=== PATIENT | female | born 1945 | race American Indian/Alaskan Native ===

== ENCOUNTER 2018-03-12 11:15 | Day surgery (SDC) | payer MEDICARE ==
[~2018-03-12 11:15] MED LIST: ANCEF/STERILE WATER 2 GM/20 ML 2 GM/20 ML SYRINGE IV NR; NACL 0.9% 1000 ML 1,000 ML IV SCH
[2018-03-12 13:09] LABS: Basophils % (Auto) 0.6 % (0.0-1.8); Eosinophils % (Auto) 0.1 % (0.0-4.3); Hematocrit 36.4 % (30.3-42.9); Hemoglobin 11.7 gm/dl (10.1-14.3); Lymphocytes # (Auto) 0.9 K/mm3 (1.2-5.4); Lymphocytes % (Auto) 11.6 % (13.4-35.0); Mean Corpuscular HGB Conc 32 % (30-34); Mean Corpuscular Hemoglobin 28 pg (28-32); Mean Corpuscular Volume 87 fl (79-97); Monocytes # (Auto) 0.7 K/mm3 (0.0-0.8); Monocytes % (Auto) 9.2 % (0.0-7.3); Platelet Count 244 K/mm3 (140-440); Red Blood Count 4.18 M/mm3 (3.65-5.03)
[2018-03-12 13:15] LABS: Red Cell Distribution Width 20.9 % (13.2-15.2)
[2018-03-12 13:28] LABS: Calcium 9.8 mg/dL (8.4-10.2)
[2018-03-12] MEDS ORDERED: ZOFRAN ONE (13:40)
[2018-03-12] MEDS ORDERED: XYLOCAINE MPF 2% ONE (13:41)
[2018-03-12] MEDS ORDERED: SUBLIMAZE ONE (13:41)
[2018-03-12] MEDS ORDERED: DIPRIVAN 10 MG/ML IV ONE (13:42)
[2018-03-12] MEDS ORDERED: DILAUDID IV PRN (15:26)
[2018-03-12] MEDS ORDERED: ZOFRAN IV PRN (15:26)
--- NOTE | 2018-03-12 15:26 | Anesthesia Consultation ---
Anesthesia Consult and Med Hx - Airway Anesthetic Teeth Evaluation: Good ROM Head & Neck: Adequate Mental/Hyoid Distance: Adequate Mallampati Class: Class II Intubation Access Assessment: Probably Good - Pulmonary Exam CTA: Yes - Cardiac Exam Cardiac Exam: No Murmur (II/IV LISSETTE, denies CP, SOB, orthopnea or PND) - Pre-Operative Health Status ASA Pre-Surgery Classification: ASA3 Proposed Anesthetic Plan: General (LMA OK) - Pulmonary Hx Smoking: No Hx Asthma: No COPD: No Hx Sleep Apnea: Yes (DX SLEEP APNEA , NO CPAP USE.) - Cardiovascular System Hx Hypertension: Yes (X 20 YRS H/o CHF) Hx Peripheral Vascular Disease: Yes (LEGS- C/O CRAMPS IN LEGS) - Central Nervous System Hx Seizures: No 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
--- NOTE | 2018-03-12 15:26 | Anesthesia Day of Surgery ---
Anesthesia Day of Surgery - Day of Surgery Patient Examined: Yes Patient H&P Reviewed: Yes Patient is NPO: Yes
[2018-03-12] MEDS ORDERED: MARCAINE 0.5% 30 ML INFILTRATI ONE (16:18)
[2018-03-12] MEDS ORDERED: HEPARIN 10,000 UNITS/10 ML ONE (16:19)
[2018-03-12] MEDS ORDERED: NACL 0.9% 500 ML 500 ML ONE ×2 (16:19→17:24)
[2018-03-12] MEDS ORDERED: NACL ONE (16:37)
[2018-03-12] MEDS ORDERED: RIFADIN ONE (16:37)
[2018-03-12] MEDS ORDERED: MARCAINE 0.5% INFILTRATI ONE (17:08)
[2018-03-12] MEDS ORDERED: NACL 0.9% IR ONE ×2 (17:08)
[2018-03-12] MEDS ORDERED: NACL 0.9% 500 ML IV ONE (17:08)
[2018-03-12] MEDS ORDERED: HEPARIN 10,000 UNITS/10 ML IV ONE (17:08)
[2018-03-12] MEDS ORDERED: HEPARIN ONE ×2 (17:24)
[2018-03-12] MEDS ORDERED: HEPARIN IV ONE (17:27)
[2018-03-12] MEDS ORDERED: DECADRON ONE (18:10)
--- NOTE | 2018-03-12 18:51 | Short Stay Summary ---
Short Stay Documentation Date of service: 03/12/18 Narrative H&P: See H&P - History H&P: obtained from office - Allergies and Medications Current Medications: Allergies No Known Allergies Allergy (Verified 03/08/18 12:44) Home Medications Medication Instructions Recorded Confirmed Last Taken Type Omeprazole 40 mg PO DAILY 03/08/18 03/12/18 03/12/18 07:45 History Pravastatin Sodium [Pravastatin] 10 mg PO QHS 03/08/18 03/12/18 03/11/18 History amLODIPine [Norvasc] 10 mg PO DAILY 03/08/18 03/12/18 03/12/18 07:45 History cloNIDine [Catapres] 0.1 mg PO TID 03/08/18 03/12/18 03/12/18 07:45 History hydrALAZINE [Apresoline TAB] 100 mg PO TID 03/08/18 03/12/18 03/12/18 07:45 History Active Medications Hydromorphone HCl (Dilaudid) 0.25 mg IV Q10MIN PRN PRN Reason: Pain, Moderate (4-6) Cefazolin Sodium (Ancef/Sterile Water 2 Gm/20 Ml) 2 gm in 20 mls @ 80 mls/hr IV PREOP NR; Protocol Stop: 03/12/18 23:59 Sodium Chloride (Nacl 0.9% 1000 Ml) 1,000 mls @ 42 mls/hr IV DIRECT LORRIE Last Admin: 03/12/18 13:10 Dose: 42 mls/hr Ondansetron HCl (Zofran) 4 mg IV ONCE PRN PRN Reason: Nausea And Vomiting - Brief post op/procedure progress note Date of procedure: 03/12/18 Pre-op diagnosis: End-Stage Renal Disease Post-op diagnosis: same Procedure: Creation of Left Arm Brachial Artery to Axillary Vein AV Graft with 6 Mm Procol Bovine Mesenteric Vein Anesthesia: GETA Surgeon: ALICIA HERNANDEZ Estimated blood loss: minimal Pathology: none Condition: stable - Disposition Condition at discharge: Good Disposition: DC-01 TO HOME OR SELFCARE Short Stay Discharge Plan Activity: other (no heavy lifting with left arm) Wound: open to air, keep clean and dry, other (okay to wash the wound with soap and water but Do not soak in water) Follow up with: ALICIA HERNANDEZ MD [Staff Physician] - 14 Days Prescriptions: HYDROcodone/APAP 7.5-325 [[place] 7.5/325] 1 each PO Q6HR PRN #40 tablet PRN Reason: Pain
--- NOTE | 2018-03-12 18:52 | Operative Report ---
Operative Report Operative Report: Date of procedure: 03/12/2018 Pre-operative diagnosis: End-Stage Renal Disease Post-operative diagnosis: Same Procedure(s): 1. Creation of Left Brachial Artery to Axillary Vein AV Graft with 6 mm Procal Bovine Mesenteric Vein Surgeon: Herrera Escobar MD Sterilizer Operator: None Anesthesia: General Endotracheal Anesthesia EBL: Minimal Counts: Correct Complications: None Condition: Stable Findings: Successful Creation of Left Arm AV Graft Specimen: None Indication: The patient is a 72-year-old female who was in need of long-term dialysis access and was not a candidate for creation of a left arm AV fistula. She needed creation of the graft and was given the risks, benefits, alternative procedures for creation of a left arm AV graft and consented to the procedure. Description of Procedure: The patient was brought to the operating room and laid in supine position after general endotracheal anesthesia was achieved the left arm was prepped and draped in normal sterile fashion. A longitudinal incision was made on the medial aspect of the arm just proximal to the antecubital crease and carried down to the brachial artery using sharp dissection. The brachial artery was dissected out circumferentially both proximally and distally and controlled with vessel loops. A second incision was created in longitudinal fashion on the medial aspect of the arm just distal to the axillary crease and carried down to the axillary vein using sharp dissection. Axillary vein was dissected out circumferentially and controlled with a vessel loop. I then used a Isatu- Wick tunneler to tunnel from the brachial artery incision to the axillary vein incision and then put an 6 mm bovine through the tunnel. I infused with heparinized saline to ensure that it was not twisted or kinked. I put the brachial artery vessel loops on tension controlling the flow and then created an arteriotomy using an 11 blade and Thompson scissors. I beveled the graft and created an end-to-side anastomosis using 6-0 Prolene running fashion. I clamped the graft just proximal to the anastomosis and then released the vessel loops restoring flow in the brachial artery. I placed quick clot in incision to achieve hemostasis. I clamped the graft at the venous and allowed it to expand for 5 minutes. Then I cut the proximal end of the graft to the appropriate length and beveled the graft in preparation for a venous anastomosis. I controlled the axillary vein a Satinsky clamp and created a venotomy using an 11 blade and Thompson scissors. I created an end to side anastomosis using a 6-0 Prolene in running fashion. Prior to completing the anastomosis I flushed the graft to ensure there was no thrombus and then completed the anastamosis. I released all clamps allowing flow into the AV graft which had an excellent thrill. I packed the wound with quick clot to achieve hemostasis. I anesthetized both wounds with Marcaine and then closed both wounds in 2 layers using 3-0 Vicryl in running fashion in the deep dermal layer and 4-0 Monocryl in running fashion the subcuticular layer. I dressed both wounds with Surgicel. The patient tolerated the procedure well all sponge needle and instrument counts were correct the patient was taken to recovery in stable condition.
[2018-03-12 20:24] VITALS: BP 133/61
== END 2018-03-12 20:10 | disposition home or self-care (01) ==
LOC: OR 11:15
PROVIDERS: ATTEND Surgery Vascular Surgery
DX: I13.2 Hypertensive heart and chronic kidney disease with heart failure and with stage 5 chronic kidney disease, or end stage renal disease (principal); N18.6 End stage renal disease; I50.9 Heart failure, unspecified; F32.9 Major depressive disorder, single episode, unspecified; G47.30 Sleep apnea, unspecified; M19.90 Unspecified osteoarthritis, unspecified site; M10.9 Gout, unspecified; E78.00 Pure hypercholesterolemia, unspecified; I73.9 Peripheral vascular disease, unspecified; K21.9 Gastro-esophageal reflux disease without esophagitis; Z79.899 Other long term (current) drug therapy; Z99.2 Dependence on renal dialysis; Z90.710 Acquired absence of both cervix and uterus; Z87.440 Personal history of urinary (tract) infections; Z86.73 Personal history of transient ischemic attack (TIA), and cerebral infarction without residual deficits; Z98.890 Other specified postprocedural states
CPT/HCPCS: 36415; 36830; 80048; 85025; C1768; J0690; J1100; J1644; J2405; J2704; J3010; J7030; J7040; J3490

== ENCOUNTER 2018-08-30 11:28 | Outpatient (CLI) | payer MEDICARE ==
--- NOTE | 2018-08-30 13:20 | XRay Report ---
CERVICAL SPINE, 5 views: History: Cervicalgia. Moderate degenerative disc disease is identified at C3-4, C4-5, C5-6 and C6-7. Near bridging anterior osteophytes are identified at these levels. There is no evidence for a fracture, malalignment or bone lesion. Oblique views show patent foramina and normal apophyseal joint alignment. The prevertebral soft tissues are not thickened. IMPRESSION: Moderate multilevel cervical spondylosis as described.
== END 2018-08-30 11:29 | disposition home or self-care (01) ==
LOC: XRAY 11:28
PROVIDERS: ATTEND Orthopaedic Surgery
DX: M47.812 Spondylosis without myelopathy or radiculopathy, cervical region (principal); I13.2 Hypertensive heart and chronic kidney disease with heart failure and with stage 5 chronic kidney disease, or end stage renal disease; I50.9 Heart failure, unspecified; K21.9 Gastro-esophageal reflux disease without esophagitis; N18.6 End stage renal disease; Z90.710 Acquired absence of both cervix and uterus
CPT/HCPCS: 72050

== ENCOUNTER 2018-09-26 13:30 | Outpatient (CLI) | payer MEDICARE ==
--- NOTE | 2018-09-26 19:58 | Magnetic Resonance Report ---
PROCEDURE: MR CERVICAL SPINE WO CON HISTORY: CERVICALGIA FINDINGS: MRI of the cervical spine was performed using sagittal T1, sagittal T2, sagittal inversion recovery, axial T2 and axial T2*gradient echo images. These images demonstrate that the visualized portion of the posterior fossa is within normal limits. The C1-C2 articulation is normally aligned. At C2-C3, there are no posterior disc abnormalities. At C3-C4 there is a posterior disc bulge which mildly effaces the anterior margin of the thecal sac. There is mild left and moderate right foraminal narrowing with suspected mild impingement exiting rig ht C4 nerve root At C4-C5 there is loss of disc T2 signal intensity. There is a small posterior disc bulge which resul ts in mild bilateral foraminal narrowing without nerve root impingement. At C5-C6 there is a small posterior disc bulge which mildly effaces the anterior margin of the thecal sac but does not result in canal stenosis. There is mild right and moderate left foraminal narrowing with suspected mild impingement of the exiting left C6 nerve root. There is subchondral endplate florentin ma at C5-C6 consistent with degenerative change at this level. At C6-C7 there is no posterior disc abnormalities. There is no evidence of canal stenosis or nerve ro ot impingement. And C7-T1 there are no posterior disc abnormalities. There is no evidence of canal stenosis or nerve root impingement. Cervical cord signal is within normal limits. IMPRESSION: Subchondral degenerative endplate edema at C5-C6 consistent with degenerative change Suspected mild impingement of exiting right C4 and left C6 nerve roots This document is electronically signed by Jm Somers MD., September 26 2018 07:55:22 PM ET
== END 2018-09-26 13:31 | disposition home or self-care (01) ==
LOC: MRI 13:30
PROVIDERS: ATTEND Orthopaedic Surgery
DX: M47.812 Spondylosis without myelopathy or radiculopathy, cervical region (principal); I13.2 Hypertensive heart and chronic kidney disease with heart failure and with stage 5 chronic kidney disease, or end stage renal disease; I50.9 Heart failure, unspecified; E78.00 Pure hypercholesterolemia, unspecified; K21.9 Gastro-esophageal reflux disease without esophagitis; N18.6 End stage renal disease
CPT/HCPCS: 36415; 72141; 82565; 84520

== ENCOUNTER 2019-01-06 16:33 | Inpatient (IN) | payer MEDICARE ==
[2019-01-06 18:08] LABS: Basophils % (Auto) 0.8 % (0.0-1.8); Eosinophils # (Auto) 0.1 K/mm3 (0.0-0.4); Eosinophils % (Auto) 0.9 % (0.0-4.3); Hematocrit 36.4 % (30.3-42.9); Lymphocytes # (Auto) 0.9 K/mm3 (1.2-5.4); Mean Corpuscular HGB Conc 33 % (30-34); Mean Corpuscular Volume 90 fl (79-97); Monocytes # (Auto) 0.6 K/mm3 (0.0-0.8); Platelet Count 172 K/mm3 (140-440); Red Blood Count 4.05 M/mm3 (3.65-5.03); Red Cell Distribution Width 18.2 % (13.2-15.2)
[2019-01-06 18:25] LABS: Alanine Aminotransferase 9 units/L (7-56); Albumin 4.1 g/dL (3.9-5); BUN/Creatinine Ratio 4; Blood Urea Nitrogen 21 mg/dL (7-17); Calcium 9.8 mg/dL (8.4-10.2); Hemolysis Index 37
[2019-01-06 18:39] LABS: Partial Thromboplastin Time 29.7 Sec. (24.2-36.6)
--- NOTE | 2019-01-06 19:27 | XRay Report ---
PROCEDURE: XR CHEST 1V AP TECHNIQUE: Chest radiograph single view. HISTORY: Chest Pain COMPARISONS: None . FINDINGS: Heart: Normal. Mediastinum/Vessels: Normal. Lungs/Pleural space: There is curvilinear opacity in the right lateral hemithorax which could be rel ated to overlying soft tissue attenuation versus related to pleural mass or loculated fluid. No airsp wilder infiltrate, effusion, or pneumothorax is seen. Bony thorax: No acute osseous abnormality. Life support devices: None. IMPRESSION: There is curvilinear opacity overlying the right lateral hemithorax, which could be rela debbie to overlying soft tissue attenuation versus related to pleural mass or loculated fluid. Recommend follow-up PA and lateral views to determine if this is a persistent finding or related to overlying chest wall soft tissues. This document is electronically signed by Sarah Domignuez MD., January 06 2019 07:25:33 PM ET
--- NOTE | 2019-01-06 20:43 | Emergency Department Report ---
ED General Adult HPI - General Chief complaint: Chest Pain Stated complaint: CHEST PAIN Time Seen by Provider: 01/06/19 17:30 Source: patient Mode of arrival: Stretcher Limitations: No Limitations - History of Present Illness Initial comments: The patient presents to the emergency department with a chief complaint of the sided chest pain that started after dialysis. Patient states a possible 2 months ago she had a abnormal stress test in [place] but did not have a heart catheterization done. Patient has a shortness breath,, pain, headache. -: Sudden Location: chest Radiation: non-radiation Severity scale (0 -10): 7 Quality: sharp Consistency: constant Improves with: none Worsens with: none Associated Symptoms: denies other symptoms Treatments Prior to Arrival: none - Related Data Home Medications Medication Instructions Recorded Confirmed Last Taken Omeprazole 40 mg PO DAILY 03/08/18 03/12/18 03/12/18 07:45 Pravastatin Sodium [Pravastatin] 10 mg PO QHS 03/08/18 03/12/18 03/11/18 amLODIPine [Norvasc] 10 mg PO DAILY 03/08/18 03/12/18 03/12/18 07:45 cloNIDine [Catapres] 0.1 mg PO TID 03/08/18 03/12/18 03/12/18 07:45 hydrALAZINE [Apresoline TAB] 100 mg PO TID 03/08/18 03/12/18 03/12/18 07:45 Previous Rx's Medication Instructions Recorded Last Taken Type HYDROcodone/APAP 7.5-325 [[place] 1 each PO Q6HR PRN #40 tablet 03/12/18 Unknown Rx 7.5/325] Acetaminophen 500 mg PO Q8H PRN #20 tablet 06/09/18 Unknown Rx Cyclobenzaprine [Flexeril] 10 mg PO QHS PRN #10 tablet 06/09/18 Unknown Rx Allergies Allergy/AdvReac Type Severity Reaction Status Date / Time No Known Allergies Allergy Verified 03/08/18 12:44 ED Review of Systems ROS: Stated complaint: CHEST PAIN Other details as noted in HPI Comment: All other systems reviewed and negative Constitutional: denies: chills, fever Eyes: denies: eye pain, eye discharge, vision change ENT: denies: ear pain, throat pain Respiratory: denies: cough, shortness of breath, wheezing Cardiovascular: chest pain. denies: palpitations Endocrine: no symptoms reported Gastrointestinal: denies: abdominal pain, nausea, diarrhea Genitourinary: denies: urgency, dysuria, discharge Musculoskeletal: denies: back pain, joint swelling, arthralgia Skin: denies: rash, lesions Neurological: denies: headache, weakness, paresthesias Psychiatric: denies: anxiety, depression Hematological/Lymphatic: denies: easy bleeding, easy bruising ED Past Medical Hx - Past Medical History Hx Hypertension: Yes (X 20 YRS H/o CHF) Hx Congestive Heart Failure: Yes (6 MONTHS AGO - RESOLVED) Hx GERD: Yes Hx Seizures: No Hx Asthma: No Hx COPD: No Hx HIV: No - Social History Smoking Status: Never Smoker Substance Use Type: None - Medications Home Medications: Home Medications Medication Instructions Recorded Confirmed Last Taken Type Omeprazole 40 mg PO DAILY 03/08/18 03/12/18 03/12/18 07:45 History Pravastatin Sodium [Pravastatin] 10 mg PO QHS 03/08/18 03/12/18 03/11/18 History amLODIPine [Norvasc] 10 mg PO DAILY 03/08/18 03/12/18 03/12/18 07:45 History cloNIDine [Catapres] 0.1 mg PO TID 03/08/18 03/12/18 03/12/18 07:45 History hydrALAZINE [Apresoline TAB] 100 mg PO TID 03/08/18 03/12/18 03/12/18 07:45 History HYDROcodone/APAP 7.5-325 [[place] 1 each PO Q6HR PRN #40 tablet 03/12/18 Unknown Rx 7.5/325] Acetaminophen 500 mg PO Q8H PRN #20 tablet 06/09/18 Unknown Rx Cyclobenzaprine [Flexeril] 10 mg PO QHS PRN #10 tablet 06/09/18 Unknown Rx ED Physical Exam - General Limitations: No Limitations General appearance: alert, in no apparent distress - Head Head exam: Present: atraumatic, normocephalic - Eye Eye exam: Present: normal appearance, PERRL, EOMI - ENT ENT exam: Present: mucous membranes moist - Neck Neck exam: Present: normal inspection - Respiratory Respiratory exam: Present: normal lung sounds bilaterally. Absent: respiratory distress - Cardiovascular Cardiovascular Exam: Present: regular rate, normal rhythm. Absent: systolic murmur, diastolic murmur, rubs, gallop - GI/Abdominal GI/Abdominal exam: Present: soft, normal bowel sounds. Absent: distended, tenderness - Extremities Exam Extremities exam: Present: normal inspection - Back Exam Back exam: Present: normal inspection - Neurological Exam Neurological exam: Present: alert, oriented X3, CN II-XII intact. Absent: motor sensory deficit - Psychiatric Psychiatric exam: Present: normal affect, normal mood - Skin Skin exam: Present: warm, dry, intact, normal color. Absent: rash ED Course Vital Signs 01/06/19 01/06/19 01/06/19 16:44 16:45 16:48 Temperature 97.9 F Pulse Rate 80 69 Respiratory 17 15 15 Rate Blood Pressure Blood Pressure 190/78 [Left] O2 Sat by Pulse 97 Oximetry 01/06/19 01/06/19 01/06/19 17:00 17:16 17:30 Temperature Pulse Rate 66 64 63 Respiratory 18 11 L 14 Rate Blood Pressure 186/98 189/90 191/94 Blood Pressure [Left] O2 Sat by Pulse 100 97 96 Oximetry 01/06/19 01/06/19 01/06/19 17:46 18:00 18:16 Temperature Pulse Rate 65 65 68 Respiratory 15 20 13 Rate Blood Pressure 190/152 190/152 189/88 Blood Pressure [Left] O2 Sat by Pulse 100 96 97 Oximetry 01/06/19 01/06/19 01/06/19 18:30 18:46 19:00 Temperature Pulse Rate 66 63 66 Respiratory 16 17 18 Rate Blood Pressure 189/88 189/88 189/88 Blood Pressure [Left] O2 Sat by Pulse 95 95 97 Oximetry ED Medical Decision Making - Lab Data Result diagrams: 01/06/19 17:48 01/06/19 17:48 Lab Results 01/06/19 01/06/19 01/06/19 Range/Units 17:48 17:48 17:48 WBC 5.7 (4.5-11.0) K/mm3 RBC 4.05 (3.65-5.03) M/mm3 Hgb 12.0 (10.1-14.3) gm/dl Hct 36.4 (30.3-42.9) % MCV 90 (79-97) fl MCH 30 (28-32) pg MCHC 33 (30-34) % RDW 18.2 H (13.2-15.2) % Plt Count 172 (140-440) K/mm3 Lymph % (Auto) 16.0 (13.4-35.0) % [place] % (Auto) 10.0 H (0.0-7.3) % Eos % (Auto) 0.9 (0.0-4.3) % Baso % (Auto) 0.8 (0.0-1.8) % Lymph # 0.9 L (1.2-5.4) K/mm3 [place] # 0.6 (0.0-0.8) K/mm3 Eos # 0.1 (0.0-0.4) K/mm3 Baso # 0.0 (0.0-0.1) K/mm3 Seg Neutrophils % 72.3 H (40.0-70.0) % Seg Neutrophils # 4.1 (1.8-7.7) K/mm3 PT 12.9 (12.2-14.9) Sec. INR 1.00 (0.87-1.13) APTT 29.7 (24.2-36.6) Sec. Sodium 141 (137-145) mmol/L Potassium 4.1 (3.6-5.0) mmol/L Chloride 94.5 L (98-107) mmol/L Carbon Dioxide 31 H (22-30) mmol/L Anion Gap 20 mmol/L BUN 21 H (7-17) mg/dL Creatinine 5.2 H (0.7-1.2) mg/dL Estimated GFR 10 ml/min BUN/Creatinine Ratio 4 % Glucose 97 (65-100) mg/dL Calcium 9.8 (8.4-10.2) mg/dL Total Bilirubin 0.40 (0.1-1.2) mg/dL AST 18 (5-40) units/L ALT 9 (7-56) units/L Alkaline Phosphatase 104 (35-129) units/L Troponin T < 0.010 (0.00-0.029) ng/mL Total Protein 8.0 (6.3-8.2) g/dL Albumin 4.1 (3.9-5) g/dL Albumin/Globulin Ratio 1.1 % Lipase 23 (13-60) units/L // Range/Units 20:00 WBC (4.5-11.0) K/mm3 RBC (3.65-5.03) M/mm3 Hgb (10.1-14.3) gm/dl Hct (30.3-42.9) % MCV (79-97) fl MCH (28-32) pg MCHC (30-34) % RDW (13.2-15.2) % Plt Count (140-440) K/mm3 Lymph % (Auto) (13.4-35.0) % [place] % (Auto) (0.0-7.3) % Eos % (Auto) (0.0-4.3) % Baso % (Auto) (0.0-1.8) % Lymph # (1.2-5.4) K/mm3 [place] # (0.0-0.8) K/mm3 Eos # (0.0-0.4) K/mm3 Baso # (0.0-0.1) K/mm3 Seg Neutrophils % (40.0-70.0) % Seg Neutrophils # (1.8-7.7) K/mm3 PT (12.2-14.9) Sec. INR (0.87-1.13) APTT (24.2-36.6) Sec. Sodium (137-145) mmol/L Potassium (3.6-5.0) mmol/L Chloride (98-107) mmol/L Carbon Dioxide (22-30) mmol/L Anion Gap mmol/L BUN (7-17) mg/dL Creatinine (0.7-1.2) mg/dL Estimated GFR ml/min BUN/Creatinine Ratio % Glucose (65-100) mg/dL Calcium (8.4-10.2) mg/dL Total Bilirubin (0.1-1.2) mg/dL AST (5-40) units/L ALT (7-56) units/L Alkaline Phosphatase (35-129) units/L Troponin T < 0.010 (0.00-0.029) ng/mL Total Protein (6.3-8.2) g/dL Albumin (3.9-5) g/dL Albumin/Globulin Ratio % Lipase (13-60) units/L - EKG Data -: EKG Interpreted by De EKG shows normal: sinus rhythm Rate: normal - Radiology Data Radiology results: report reviewed Critical care attestation.: If time is entered above; I have spent that time in minutes in the direct care of this critically ill patient, excluding procedure time. ED Disposition Clinical Impression: Chest pain Disposition: OP ADMIT IP TO THIS HOSP Is pt being admited?: Yes Does the pt Need Aspirin: Yes Condition: Stable Instructions: Chest Pain (ED) Referrals: ARIC WEEKS MD [Primary Care Provider] - 3-5 Days
[2019-01-06] MEDS ORDERED: BABY ASPIRIN PO ONE (20:59)
[2019-01-06] MEDS ORDERED: NITROSTAT SL PRN (21:24)
[2019-01-06] MEDS ORDERED: MORPHINE IV PRN (21:24)
[2019-01-06] MEDS ORDERED: SODIUM CHLORIDE FLUSH SYRINGE 10 ML IV PRN (21:24)
[2019-01-06] MEDS ORDERED: TYLENOL PO PRN (21:24)
[2019-01-06] MEDS ORDERED: ZOFRAN IV PRN (21:24)
[2019-01-06] MEDS ORDERED: DILAUDID IV PRN (21:29)
[2019-01-06] MEDS ORDERED: PERCOCET 5/325 PO PRN (21:31)
--- NOTE | 2019-01-06 21:42 | History and Physical Report ---
<WENDY WILSON - Last Filed: 01/06/19 22:12> History of Present Illness Date of examination: 01/06/19 Date of admission: 01/06/2019 Chief complaint: Chest pain, shortness of breath History of present illness: 73-year-old -Martiniquais female with history of ESRD on HD M/W/T/F, hypertension, GERD, arthritis, gout, questionable CHF who presents to [facility] ED with complaints of shortness of breath and chest pain. Patient states that she began to experience chest pain earlier today shortly after completing her dialysis session. She states that the chest pain radiates to her neck was accompanied by nausea and diaphoresis. She describes her pain as sharp and rates it 5/10. It is relieved by pain medication and rest. Patient also complains of shortness of breath with activity. Patient states that she had a stress test done in October of this year at [facility] in [facility]. At which time she was told that she has a heart blockage. She denies any further cardiac workup or treatment. She has an established study director here in [place], Dr. Mahmood. Her primary care physician is Dr. Martinez. Admits: Chest pain, shortness of breath with activity, nausea, diaphoresis, headache, dry cough Denies: Vomiting, diarrhea, fever, hemoptysis, shortness of breath at rest, visual disturbances, gait dysfunction, deviation and speech, or recent sick contact Past History Past Medical History: arthritis, dialysis (M/W/F), ESRD, GERD, heart failure, hypertension, other (gout) Past Surgical History: Other (left upper extremity AV fistula) Social history: no significant social history Family history: no significant family history Medications and Allergies Allergies Allergy/AdvReac Type Severity Reaction Status Date / Time No Known Allergies Allergy Verified 03/08/18 12:44 Home Medications Medication Instructions Recorded Confirmed Last Taken Type Omeprazole 40 mg PO DAILY 03/08/18 03/12/18 03/12/18 07:45 History Pravastatin Sodium [Pravastatin] 10 mg PO QHS 03/08/18 03/12/18 03/11/18 History amLODIPine [Norvasc] 10 mg PO DAILY 03/08/18 03/12/18 03/12/18 07:45 History cloNIDine [Catapres] 0.1 mg PO TID 03/08/18 03/12/1818 07:45 History hydrALAZINE [Apresoline TAB] 100 mg PO TID 03/08/18 03/12/18 03/12/18 07:45 History HYDROcodone/APAP 7.5-325 [Enochs 1 each PO Q6HR PRN #40 tablet 03/12/18 Unknown Rx 7.5/325] Acetaminophen 500 mg PO Q8H PRN #20 tablet 06/09/18 Unknown Rx Cyclobenzaprine [Flexeril] 10 mg PO QHS PRN #10 tablet 06/09/18 Unknown Rx Active Meds: Active Medications Acetaminophen (Tylenol) 650 mg PO Q4H PRN PRN Reason: Pain MILD(1-3)/Fever >100.5/VILLALBA Amlodipine Besylate (Norvasc) 10 mg PO DAILY [facility] Aspirin (Baby Aspirin) 81 mg PO QDAY [facility] Atorvastatin Calcium (Lipitor) 40 mg PO QHS [facility] Clonidine HCl (Catapres) 0.1 mg PO TID [facility] Heparin Sodium (Porcine) (Heparin) 5,000 unit SUB-Q Q12HR [facility] Hydralazine HCl (Apresoline) 100 mg PO TID [facility] Hydromorphone HCl (Dilaudid) 0.5 mg IV Q3H PRN PRN Reason: Pain , Severe (7-10) Stop: 01/07/19 23:59 Miscellaneous Medication (Omeprazole [Omeprazole]) 40 mg PO DAILY [facility] Morphine Sulfate (Morphine) 2 mg IV Q4H PRN PRN Reason: Pain, Moderate (4-6) Stop: 01/07/19 23:59 Nitroglycerin (Nitrostat) 0.4 mg SL Q5M PRN PRN Reason: Chest Pain Ondansetron HCl (Zofran) 4 mg IV Q8H PRN PRN Reason: Nausea And Vomiting Oxycodone/Acetaminophen (Percocet 5/325) 1 tab PO Q6H PRN PRN Reason: Pain, Moderate (4-6) Sodium Chloride (Sodium Chloride Flush Syringe 10 Ml) 10 ml IV BID [facility] Sodium Chloride (Sodium Chloride Flush Syringe 10 Ml) 10 ml IV PRN PRN PRN Reason: LINE FLUSH Review of Systems All systems: negative (reviewed in no additional remarkable complaints except as noted below) Cardiovascular: chest pain (epigastric, radiating to neck), shortness of breath, dyspnea on exertion Respiratory: cough (no sputum production, dry cough), shortness of breath, dyspnea on exertion Exam - Physical Exam Narrative exam: Physical exam General appearance: Present: No acute distress, alert and oriented 3, older adult -Martiniquais female - EENT Eyes: Present: PERRL, EOM intact ENT: hearing intact, normal dentition - Neck Neck: Present: supple, normal ROM - Respiratory Respiratory effort: Non-labored Respiratory: Clear throughout - Cardiovascular Heart rate: 67 (bpm) Rhythm: Sinus rhythm Heart Sounds: Present: S1 & S2. Absent: rub, click - Extremities Extremities: no ischemia, pulses intact, abnormal (left upper extremity AV fistula) - Peripheral Assessment Peripheral Pulses: within normal limits - Abdominal General gastrointestinal: soft, non-tender, normal bowel sounds - Integumentary Integumentary: Present: warm, dry - Musculoskeletal Musculoskeletal: Able to move all extremities -Neurological Neurological: CN II-XII intact - Psychiatric Psychiatric: cooperative - Constitutional Vitals: Temp Pulse Resp BP Pulse Ox 97.9 F 66 18 189/88 97 01/06/19 16:48 01/06/19 19:00 01/06/19 19:00 01/06/19 19:00 01/06/19 19:00 Results - Labs CBC & Chem 7: 01/06/19 17:48 01/06/19 17:48 Labs: Laboratory Last Values WBC 5.7 K/mm3 (4.5-11.0) 01/06/19 17:48 RBC 4.05 M/mm3 (3.65-5.03) 01/06/19 17:48 Hgb 12.0 gm/dl (10.1-14.3) 01/06/19 17:48 Hct 36.4 % (30.3-42.9) 01/06/19 17:48 MCV 90 fl (79-97) 01/06/19 17:48 MCH 30 pg (28-32) 01/06/19 17:48 MCHC 33 % (30-34) 01/06/19 17:48 RDW 18.2 % (13.2-15.2) H 01/06/19 17:48 Plt Count 172 K/mm3 (140-440) 01/06/19 17:48 Lymph % (Auto) 16.0 % (13.4-35.0) 01/06/19 17:48 Laurel % (Auto) 10.0 % (0.0-7.3) H 01/06/19 17:48 Eos % (Auto) 0.9 % (0.0-4.3) 01/06/19 17:48 Baso % (Auto) 0.8 % (0.0-1.8) 01/06/19 17:48 Lymph # 0.9 K/mm3 (1.2-5.4) L 01/06/19 17:48 Laurel # 0.6 K/mm3 (0.0-0.8) 01/06/19 17:48 Eos # 0.1 K/mm3 (0.0-0.4) 01/06/19 17:48 Baso # 0.0 K/mm3 (0.0-0.1) 01/06/19 17:48 Seg Neutrophils % 72.3 % (40.0-70.0) H 01/06/19 17:48 Seg Neutrophils # 4.1 K/mm3 (1.8-7.7) 01/06/19 17:48 PT 12.9 Sec. (12.2-14.9) 01/06/19 17:48 INR 1.00 (0.87-1.13) 01/06/19 17:48 APTT 29.7 Sec. (24.2-36.6) 01/06/19 17:48 Sodium 141 mmol/L (137-145) 01/06/19 17:48 Potassium 4.1 mmol/L (3.6-5.0) 01/06/19 17:48 Chloride 94.5 mmol/L (98-107) L 01/06/19 17:48 Carbon Dioxide 31 mmol/L (22-30) H 01/06/19 17:48 20 mmol/L 01/06/19 17:48 BUN 21 mg/dL (7-17) H 01/06/19 17:48 5.2 mg/dL (0.7-1.2) H 01/06/19 17:48 Estimated GFR 10 ml/min 01/06/19 17:48 4 % 01/06/19 17:48 Glucose 97 mg/dL (65-100) 01/06/19 17:48 Calcium 9.8 mg/dL (8.4-10.2) 01/06/19 17:48 0.40 mg/dL (0.1-1.2) 01/06/19 17:48 AST 18 units/L (5-40) 01/06/19 17:48 ALT 9 units/L (7-56) 01/06/19 17:48 104 units/L (35-129) 01/06/19 17:48 < 0.010 ng/mL (0.00-0.029) 01/06/19 20:00 8.0 g/dL (6.3-8.2) 01/06/19 17:48 4.1 g/dL (3.9-5) 01/06/19 17:48 1.1 % 01/06/19 17:48 23 units/L (13-60) 01/06/19 17:48 - Imaging and Cardiology EKG: image reviewed (sinus rhythm, 67 bpm, old inferior infarct) Chest x-ray: report reviewed (inconclusive 2V CXR recommended and ordered), image reviewed Assessment and Plan Assessment and plan: 73-year-old -Martiniquais female with history of ESRD on HD M/W/T/F, hypertension, GERD, arthritis, gout, questionable CHF who presents to [facility] ED with complaints of shortness of breath with activity and epigastric chest pain with radiation to neck. Patient states that she had a stress test done in October of this year at [facility] in [facility]. At which time she was told that she has a heart blockage. She denies any further cardiac workup or treatment. She has an established study director here in [place], Dr. Mahmood. Her primary care physician is Dr. Martinez. We will attempt to Medical records from [facility] and consult cardiology. Troponin negative 2. She is found to be in hypertensive urgency 191/81. Will admit as OBS to telemetry. R/O ACS R/O PE HTN urgency Hx HTN ESRD on HD M/W/F ?? CHF?? GERD Arthritis Gout Plan: Continue supportive care Continuous telemetry monitoring Pain mgmt D-Dimer pending; if elevated will order V/Q to r/o PE 2V CXR pending Consult cardiology Obtain medical records from [place], [place]- pending Consult nephrology for HD management Monitor BP IV hydralazine when necessary Resume Norvasc 10 mg, clonidine 0.1mg TID, hydralazine 100 mg 3 times a day Resume omeprazole 40 mg daily Start ASA 81mg, Lipitor 40 mg daily at bedtime Albuterol when necessary DVT PPX on Heparin and SCD's This patient was seen in conjunction with Dr. Alexandra Nelson. Advance Directives: No VTE prophylaxis?: Chemical Plan of care discussed with patient/family: Yes <BETTINA NELSON E - Last Filed: 01/06/19 22:45> History of Present Illness Date of admission: 01/06/19 21:24 Medications and Allergies Active Meds: Active Medications Acetaminophen (Tylenol) 650 mg PO Q4H PRN PRN Reason: Pain MILD(1-3)/Fever >100.5/VILLALBA Albuterol (Proventil) 2.5 mg IH Q4HRT PRN PRN Reason: Shortness Of Breath Amlodipine Besylate (Norvasc) 10 mg PO DAILY [facility] Aspirin (Baby Aspirin) 81 mg PO QDAY [facility] Atorvastatin Calcium (Lipitor) 40 mg PO QHS [facility] Clonidine HCl (Catapres) 0.1 mg PO TID [facility] Heparin Sodium (Porcine) (Heparin) 5,000 unit SUB-Q Q12HR [facility] Hydralazine HCl (Apresoline) 100 mg PO TID [facility] Hydralazine HCl (Apresoline) 10 mg IV Q4H PRN PRN Reason: Blood Pressure Hydromorphone HCl (Dilaudid) 0.5 mg IV Q3H PRN PRN Reason: Pain , Severe (7-10) Stop: 01/07/19 23:59 Morphine Sulfate (Morphine) 2 mg IV Q4H PRN PRN Reason: Pain, Moderate (4-6) Stop: 01/07/19 23:59 Nitroglycerin (Nitrostat) 0.4 mg SL Q5M PRN PRN Reason: Chest Pain Ondansetron HCl (Zofran) 4 mg IV Q8H PRN PRN Reason: Nausea And Vomiting Oxycodone/Acetaminophen (Percocet 5/325) 1 tab PO Q6H PRN PRN Reason: Pain, Moderate (4-6) Pantoprazole Sodium (Protonix) 40 mg PO DAILY [facility] Sodium Chloride (Sodium Chloride Flush Syringe 10 Ml) 10 ml IV BID [facility] Sodium Chloride (Sodium Chloride Flush Syringe 10 Ml) 10 ml IV PRN PRN PRN Reason: LINE FLUSH Exam - Constitutional Vitals: Temp Pulse Resp BP Pulse Ox 97.9 F 81 18 191/81 98 01/06/19 16:48 01/06/19 22:00 01/06/19 22:00 01/06/19 22:00 01/06/19 22:00 Results - Labs CBC & Chem 7: 01/06/19 17:48 01/06/19 20:00 Labs: Laboratory Last Values WBC 5.7 K/mm3 (4.5-11.0) 01/06/19 17:48 RBC 4.05 M/mm3 (3.65-5.03) 01/06/19 17:48 Hgb 12.0 gm/dl (10.1-14.3) 01/06/19 17:48 Hct 36.4 % (30.3-42.9) 01/06/19 17:48 MCV 90 fl (79-97) 01/06/19 17:48 MCH 30 pg (28-32) 01/06/19 17:48 MCHC 33 % (30-34) 01/06/19 17:48 RDW 18.2 % (13.2-15.2) H 01/06/19 17:48 Plt Count 172 K/mm3 (140-440) 01/06/19 17:48 Lymph % (Auto) 16.0 % (13.4-35.0) 01/06/19 17:48 Laurel % (Auto) 10.0 % (0.0-7.3) H 01/06/19 17:48 Eos % (Auto) 0.9 % (0.0-4.3) 01/06/19 17:48 Baso % (Auto) 0.8 % (0.0-1.8) 01/06/19 17:48 Lymph # 0.9 K/mm3 (1.2-5.4) L 01/06/19 17:48 Laurel # 0.6 K/mm3 (0.0-0.8) 01/06/19 17:48 Eos # 0.1 K/mm3 (0.0-0.4) 01/06/19 17:48 Baso # 0.0 K/mm3 (0.0-0.1) 01/06/19 17:48 Seg Neutrophils % 72.3 % (40.0-70.0) H 01/06/19 17:48 Seg Neutrophils # 4.1 K/mm3 (1.8-7.7) 01/06/19 17:48 PT 12.9 Sec. (12.2-14.9) 01/06/19 17:48 INR 1.00 (0.87-1.13) 01/06/19 17:48 APTT 29.7 Sec. (24.2-36.6) 01/06/19 17:48 767.68 ng/mlDDU (0-234) H 01/06/19 17:48 Sodium 139 mmol/L (137-145) 01/06/19 20:00 Potassium 4.6 mmol/L (3.6-5.0) 01/06/19 20:00 Chloride 93.7 mmol/L (98-107) L 01/06/19 20:00 Carbon Dioxide 22 mmol/L (22-30) D 01/06/19 20:00 28 mmol/L 01/06/19 20:00 BUN 23 mg/dL (7-17) H 01/06/19 20:00 5.5 mg/dL (0.7-1.2) H 01/06/19 20:00 Estimated GFR 9 ml/min 01/06/19 20:00 4 % 01/06/19 20:00 Glucose 80 mg/dL (65-100) 01/06/19 20:00 Calcium 9.9 mg/dL (8.4-10.2) 01/06/19 20:00 0.40 mg/dL (0.1-1.2) 01/06/19 17:48 AST 18 units/L (5-40) 01/06/19 17:48 ALT 9 units/L (7-56) 01/06/19 17:48 104 units/L (35-129) 01/06/19 17:48 < 0.010 ng/mL (0.00-0.029) 01/06/19 20:00 8.0 g/dL (6.3-8.2) 01/06/19 17:48 4.1 g/dL (3.9-5) 06/17/19 17:48 1.1 % 01/06/19 17:48 Triglycerides 91 mg/dL (2-149) 01/06/19 20:00 Cholesterol 201 mg/dL (50-199) H 01/06/19 20:00 115 mg/dL (50-130) 01/06/19 20:00 75 mg/dL (40-59) H 01/06/19 20:00 2.68 % 01/06/19 20:00 23 units/L (13-60) 01/06/19 17:48 Assessment and Plan Assessment and plan: 73 -year-old boy who had a history of hypertension, end-stage renal disease on dialysis, GERD, gout, arthritis comes emergency room with complaints of chest pain located on the bilateral breast radiating up to the neck. Stress test done in [place] was abnormal. Obtain stress test report from [place], consult cardiology, agree with plan as stated above. Patient seen and examined, discussed with nurse practitioner
[2019-01-06] MEDS ORDERED: PROVENTIL IH PRN (22:14)
[2019-01-06 22:18] LABS: Calcium 9.9 mg/dL (8.4-10.2)
[2019-01-06 22:21] LABS: Chol/HDL Ratio 2.68 %
--- NOTE | 2019-01-06 22:51 | XRay Report ---
PROCEDURE: XR CHEST ROUTINE 2V TECHNIQUE: PA and lateral chest radiographs were obtained. HISTORY: ??curvilinear opacity overlying the right lateral COMPARISONS: None. FINDINGS: Heart: Mild cardiomegaly is noted. Mediastinum/Vessels: Normal. Lungs/Pleural space: A well-defined uniform density lesion is noted involving the right mid and lowe r hemithorax measuring about 13 cm x 5 cm in craniocaudal and transverse dimensions which has a conve x well-defined medial margin. Left lung and bilateral pleural spaces are clear. Bony thorax: No acute osseous abnormality. IMPRESSION: A right hemithorax density with convex medial margin is stable since the prior study and most likely represents a loculated pleural effusion. Ultrasound evaluation is recommended. Mild cardiomegaly. This document is electronically signed by Jose Jewell MD., January 06 2019 10:49:36 PM ET
[2019-01-06] MEDS: APRESOLINE IV PRN (23:27)
[2019-01-06] MEDS: HEPARIN SUB-Q SCH (23:28)
[2019-01-06] MEDS: SODIUM CHLORIDE FLUSH SYRINGE 10 ML IV SCH (23:30)
[2019-01-07 06:08] LABS: Basophils % (Auto) 0.7 % (0.0-1.8); Eosinophils # (Auto) 0.1 K/mm3 (0.0-0.4); Eosinophils % (Auto) 1.7 % (0.0-4.3); Hematocrit 34.1 % (30.3-42.9); Hemoglobin 11.1 gm/dl (10.1-14.3); Lymphocytes # (Auto) 1.9 K/mm3 (1.2-5.4); Lymphocytes % (Auto) 27.2 % (13.4-35.0); Mean Corpuscular HGB Conc 33 % (30-34); Mean Corpuscular Volume 90 fl (79-97); Monocytes # (Auto) 0.7 K/mm3 (0.0-0.8); Monocytes % (Auto) 10.6 % (0.0-7.3); Platelet Count 167 K/mm3 (140-440); Red Blood Count 3.78 M/mm3 (3.65-5.03); Red Cell Distribution Width 18.8 % (13.2-15.2)
[2019-01-07 06:39] LABS: Calcium 9.5 mg/dL (8.4-10.2)
[2019-01-07] MEDS: CATAPRES PO SCH ×3 (08:27→21:31)
[2019-01-07] MEDS: APRESOLINE PO SCH ×3 (08:27→21:31)
--- NOTE | 2019-01-07 08:48 | Event Note ---
Date: 01/07/[address] Calhoun is her Hydraulic Pile Hammer Operator. Will notify him to assume care
[2019-01-07] MEDS ORDERED: NON-FORMULARY (Omeprazole [Omeprazole] 40 MG) PO SCH (10:00)
--- NOTE | 2019-01-07 10:02 | Nuclear Medicine Report ---
LUNG SCAN, VENTILATION AND PERFUSION: History: Short of breath. Technique: 5mci of Tc99m MAA was infused for the perfusion images. 15mci XE 133 gas was inhaled for the ventilatory images. Correlation is made with a chest x-ray dated 01/06/18. Findings: Inhalation of Xenon gas demonstrates a normal distribution of the activity throughout both lungs. The wash out phases mild retention of the radiotracer bilaterally consistent with obstructive pulmonary disease. After injection of Technetium 99m macroaggregated albumin gamma camera imaging of the lungs in multiple projections an ovoid non-segmental perfusion defect in the lateral right lung which corresponds to a similar-appearing density seen on chest x-ray. This presumably represents loculated pleural fluid or possibly a mass. This could be fully evaluated with CT chest with contrast if needed. There is homogeneous distribution of the radiotracer throughout the remainder of the lungs. No missed matched segmental defect is identified. IMPRESSION: Low probability for pulmonary embolus.
[2019-01-07] MEDS: BABY ASPIRIN PO SCH (10:20)
[2019-01-07] MEDS: SODIUM CHLORIDE FLUSH SYRINGE 10 ML IV SCH ×2 (10:20→21:32)
[2019-01-07] MEDS: PROTONIX PO SCH (10:20)
[2019-01-07] MEDS: NORVASC PO SCH (10:21)
[2019-01-07] MEDS: HEPARIN SUB-Q SCH ×2 (10:22→21:31)
--- NOTE | 2019-01-07 12:20 | Consultation ---
History of Present Illness - Reason for Consult Consult date: 01/07/19 end stage renal disease Requesting physician: JOJO IRELAND - History of Present Illness 73-year-old -Cook Islander female with history of ESRD on HD M/W/T/F, hypertension, GERD, arthritis, gout, questionable CHF who presents to [facility] ED with complaints of shortness of breath and chest pain. Patient states that she began to experience chest pain earlier today shortly after completing her dialys is session. She states that the chest pain radiates to her neck was accompanied by nausea and diaphoresis. She describes her pain as sharp and rates it 5/10. It is relieved by pain medication and rest. Patient also complains of shortness of breath with activity. Patient states that she had a stress test done in October of this year at [facility] in [facility]. At which time she was told that she has a heart blockage. She denies any further cardiac workup or treatment. 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 Mahmood. Her primary care physician is Dr. Martinez. Admits: Chest pain, shortness of breath with activity, nausea, diaphoresis, headache, dry cough Denies: Vomiting, diarrhea, fever, hemoptysis, shortness of breath at rest, visual disturbances, gait dysfunction, deviation and speech, or recent sick contact Past History Past Medical History: arthritis, dialysis (M/W/F), ESRD, GERD, heart failure, hypertension, other (gout) Past Surgical History: Other (left upper extremity AV fistula) Social history: no significant social history Family history: no significant family history Review of Systems All systems: negative (reviewed in no additional remarkable complaints except as noted below) Cardiovascular: chest pain (epigastric, radiating to neck), shortness of breath, dyspnea on exertion Respiratory: cough (no sputum production, dry cough), shortness of breath, dyspnea on exertion Past History Past Medical History: arthritis, dialysis (M/W/F), ESRD, GERD, heart failure, hypertension, other (gout) Past Surgical History: Other (left upper extremity AV fistula) Social history: no significant social history Family history: no significant family history Medications and Allergies Allergies Allergy/AdvReac Type Severity Reaction Status Date / Time No Known Allergies Allergy Verified 03/08/18 12:44 Home Medications Medication Instructions Recorded Confirmed Last Taken Type Omeprazole 40 mg PO DAILY 0801/06/19 03/12/18 07:45 History Pravastatin Sodium [Pravastatin] 10 mg PO QHS 03/08/18 01/06/19 03/11/18 History amLODIPine [Norvasc] 10 mg PO DAILY 03/08/18 01/06/19 03/12/18 07:45 History cloNIDine [Catapres] 0.1 mg PO TID 03/08/18 01/06/19 03/12/18 07:45 History hydrALAZINE [Apresoline TAB] 100 mg PO TID 03/08/18 01/06/19 03/12/18 07:45 History HYDROcodone/APAP 7.5-325 [Bruce 1 each PO Q6HR PRN #40 tablet 03/12/18 01/06/19 Unknown Rx 7.5/325] Acetaminophen 500 mg PO Q8H PRN #20 tablet 06/09/18 01/06/19 Unknown Rx Cyclobenzaprine [Flexeril] 10 mg PO QHS PRN #10 tablet 06/09/18 01/06/19 Unknown Rx Active Meds: Active Medications Acetaminophen (Tylenol) 650 mg PO Q4H PRN PRN Reason: Pain MILD(1-3)/Fever >100.5/VILLALBA Albuterol (Proventil) 2.5 mg IH Q4HRT PRN PRN Reason: Shortness Of Breath Amlodipine Besylate (Norvasc) 10 mg PO DAILY [facility] Last Admin: 01/07/19 10:21 Dose: Not Given Documented by: Aspirin (Baby Aspirin) 81 mg PO QDAY [facility] Last Admin: 01/07/19 10:20 Dose: 81 mg Documented by: Atorvastatin Calcium (Lipitor) 40 mg PO QHS [facility] Last Admin: 01/06/19 23:28 Dose: 40 mg Documented by: Clonidine HCl (Catapres) 0.1 mg PO TID [facility] Last Admin: 01/07/19 08:27 Dose: 0.1 mg Documented by: Heparin Sodium (Porcine) (Heparin) 5,000 unit SUB-Q Q12HR [facility] Last Admin: 01/07/19 10:22 Dose: 5,000 unit Documented by: Hydralazine HCl (Apresoline) 100 mg PO TID [facility] Last Admin: 01/07/19 08:27 Dose: 100 mg Documented by: Hydralazine HCl (Apresoline) 10 mg IV Q4H PRN PRN Reason: Blood Pressure Last Admin: 01/06/19 23:27 Dose: 10 mg Documented by: Hydromorphone HCl (Dilaudid) 0.5 mg IV Q3H PRN PRN Reason: Pain , Severe (7-10) Stop: 01/07/19 23:59 Morphine Sulfate (Morphine) 2 mg IV Q4H PRN PRN Reason: Pain, Moderate (4-6) Stop: 01/07/19 23:59 Nitroglycerin (Nitrostat) 0.4 mg SL Q5M PRN PRN Reason: Chest Pain Ondansetron HCl (Zofran) 4 mg IV Q8H PRN PRN Reason: Nausea And Vomiting Oxycodone/Acetaminophen (Percocet 5/325) 1 tab PO Q6H PRN PRN Reason: Pain, Moderate (4-6) Pantoprazole Sodium (Protonix) 40 mg PO DAILY [facility] Last Admin: 01/07/19 10:20 Dose: 40 mg Documented by: Sodium Chloride (Sodium Chloride Flush Syringe 10 Ml) 10 ml IV BID [facility] Last Admin: 01/07/19 10:20 Dose: 10 ml Documented by: Sodium Chloride (Sodium Chloride Flush Syringe 10 Ml) 10 ml IV PRN PRN PRN Reason: LINE FLUSH Exam - Vital Signs Vital signs: Vital Signs Resp 17 01/06/19 16:44 - Physical Exam Narrative exam: Physical exam General appearance: Present: No acute distress, alert and oriented 3, older adult -[place] female - EENT Eyes: Present: PERRL, EOM intact ENT: hearing intact, normal dentition - Neck Neck: Present: supple, normal ROM - Respiratory Respiratory effort: Non-labored Respiratory: Clear throughout - Cardiovascular Heart rate: 67 (bpm) Rhythm: Sinus rhythm Heart Sounds: Present: S1 & S2. Absent: rub, click - Extremities Extremities: no ischemia, pulses intact, abnormal (left upper extremity AV fistula) - Peripheral Assessment Peripheral Pulses: within normal limits - Abdominal General gastrointestinal: soft, non-tender, normal bowel sounds - Integumentary Integumentary: Present: warm, dry - Musculoskeletal Musculoskeletal: Able to move all extremities -Neurological Neurological: CN II-XII intact - Psychiatric Psychiatric: cooperative Results - Lab Results 01/07/19 05:26 01/07/19 05:26 Most recent lab results Calcium 9.5 mg/dL (8.4-10.2) 01/07/19 05:26 Assessment and Plan Impression: * ESRD * chest pain * HTN urgency * Hx HTN * GERD * Arthritis * Gout Plan: * Continue supportive care * hd q MWF * uf as tolerated * Continuous telemetry monitoring * Pain mgmt * Consult cardiology * Obtain medical records from [facility], [place]- pending * DVT PPX on Heparin and SCD's
[2019-01-07] MEDS ORDERED: ALBURX 25% (ALBUMIN) IV PRN (12:22)
[2019-01-07] MEDS ORDERED: NACL 0.9% 100 ML IV PRN (12:22)
--- NOTE | 2019-01-07 13:15 | Consultation ---
History of Present Illness Consult date: 01/07/19 Consult reason: chest pain History of present illness: Patient is a 73-year old woman with end stage renal disease on dialysis who is admitted with chest pain. Patient reports on yesterday, just after she completed her dialysis session she developed chest pain under her left breast associated with diaphoresis. She has no unusual shortness of breath, no palpitations or no dizziness. Cardiac enzymes were normal and her ECG is benign, a sinus rhythm with LVH. No acute ischemic changes. Patient is known to [facility] and follows with Dr Mahmood on a routine basis. Her latest cardiac workup was done as an outpatient 6 months ago. She had a persantine thallium stress test that reports no ischemia, ejection fraction 55% by her latest echocardiogram. Past History Past Medical History: arthritis, dialysis (M/W/F), ESRD, GERD, heart failure, hypertension, other (gout) Past Surgical History: Other (left upper extremity AV fistula) Social history: no significant social history Family history: no significant family history Medications and Allergies Allergies Allergy/AdvReac Type Severity Reaction Status Date / Time No Known Allergies Allergy Verified 03/08/18 12:44 Home Medications Medication Instructions Recorded Confirmed Last Taken Type Omeprazole 40 mg PO DAILY 03/08/18 01/06/19 03/12/18 07:45 History Pravastatin Sodium [Pravastatin] 10 mg PO QHS 03/08/18 01/06/19 03/11/18 History amLODIPine [Norvasc] 10 mg PO DAILY 03/08/18 01/06/19 03/12/18 07:45 History cloNIDine [Catapres] 0.1 mg PO TID 03/08/18 01/06/19 03/12/18 07:45 History hydrALAZINE [Apresoline TAB] 100 mg PO TID 03/08/18 01/06/19 03/12/18 07:45 History HYDROcodone/APAP 7.5-325 [[place] 1 each PO Q6HR PRN #40 tablet 03/12/18 01/06/19 Unknown Rx 7.5/325] Acetaminophen 500 mg PO Q8H PRN #20 tablet 06/09/18 01/06/19 Unknown Rx Cyclobenzaprine [Flexeril] 10 mg PO QHS PRN #10 tablet 06/09/18 01/06/19 Unknown Rx Active Meds: Active Medications Acetaminophen (Tylenol) 650 mg PO Q4H PRN PRN Reason: Pain MILD(1-3)/Fever >100.5/VILLALBA Albumin Human (Alburx 25% (Albumin)) 25 gm IV SHIELA PRN PRN Reason: Hypotension Albuterol (Proventil) 2.5 mg IH Q4HRT PRN PRN Reason: Shortness Of Breath Amlodipine Besylate (Norvasc) 10 mg PO DAILY [facility] Last Admin: 01/07/19 10:21 Dose: Not Given Documented by: Aspirin (Baby Aspirin) 81 mg PO QDAY [facility] Last Admin: 01/07/19 10:20 Dose: 81 mg Documented by: Atorvastatin Calcium (Lipitor) 40 mg PO QHS [facility] Last Admin: 01/06/19 23:28 Dose: 40 mg Documented by: Clonidine HCl (Catapres) 0.1 mg PO TID [facility] Last Admin: 01/07/19 08:27 Dose: 0.1 mg Documented by: Heparin Sodium (Porcine) (Heparin) 5,000 unit SUB-Q Q12HR [facility] Last Admin: 01/07/19 10:22 Dose: 5,000 unit Documented by: Hydralazine HCl (Apresoline) 100 mg PO TID [facility] Last Admin: 01/07/19 08:27 Dose: 100 mg Documented by: Hydralazine HCl (Apresoline) 10 mg IV Q4H PRN PRN Reason: Blood Pressure Last Admin: 01/06/19 23:27 Dose: 10 mg Documented by: Hydromorphone HCl (Dilaudid) 0.5 mg IV Q3H PRN PRN Reason: Pain , Severe (7-10) Stop: 01/07/19 23:59 Sodium Chloride (Nacl 0.9%) 100 mls @ 999 mls/hr IV SHIELA PRN PRN Reason: Hypotension Morphine Sulfate (Morphine) 2 mg IV Q4H PRN PRN Reason: Pain, Moderate (4-6) Stop: 01/07/19 23:59 Nitroglycerin (Nitrostat) 0.4 mg SL Q5M PRN PRN Reason: Chest Pain Ondansetron HCl (Zofran) 4 mg IV Q8H PRN PRN Reason: Nausea And Vomiting Oxycodone/Acetaminophen (Percocet 5/325) 1 tab PO Q6H PRN PRN Reason: Pain, Moderate (4-6) Pantoprazole Sodium (Protonix) 40 mg PO DAILY [facility] Last Admin: 01/07/19 10:20 Dose: 40 mg Documented by: Sodium Chloride (Sodium Chloride Flush Syringe 10 Ml) 10 ml IV BID [facility] Last Admin: 01/07/19 10:20 Dose: 10 ml Documented by: Sodium Chloride (Sodium Chloride Flush Syringe 10 Ml) 10 ml IV PRN PRN PRN Reason: LINE FLUSH Physical Examination Vital Signs Resp 17 01/06/19 16:44 General appearance: no acute distress HEENT: Positive: PERRL Cardiac: Positive: Reg Rate and Rhythm Lungs: Positive: Decreased Breath Sounds Neuro: Positive: Grossly Intact Extremities: Absent: edema Results 01/07/19 05:26 01/07/19 05:26 Cardiac Enzymes 01/06/19 Range/Units 17:48 AST 18 (5-40) units/L Coagulation 01/06/19 Range/Units 17:48 PT 12.9 (12.2-14.9) Sec. INR 1.00 (0.87-1.13) APTT 29.7 (24.2-36.6) Sec. Lipids 01/06/19 Range/Units 20:00 Triglycerides 91 (2-149) mg/dL Cholesterol 201 H (50-199) mg/dL HDL Cholesterol 75 H (40-59) mg/dL Cholesterol/HDL Ratio 2.68 % CBC 01/06/19 01/07/19 Range/Units 17:48 05:26 WBC 5.7 6.8 (4.5-11.0) K/mm3 RBC 4.05 3.78 (3.65-5.03) M/mm3 Hgb 12.0 11.1 (10.1-14.3) gm/dl Hct 36.4 34.1 (30.3-42.9) % Plt Count 172 167 (140-440) K/mm3 Lymph # 0.9 L 1.9 (1.2-5.4) K/mm3 Henry # 0.6 0.7 (0.0-0.8) K/mm3 Eos # 0.1 0.1 (0.0-0.4) K/mm3 Baso # 0.0 0.0 (0.0-0.1) K/mm3 Comprehensive Metabolic Panel 01/06/19 01/06/19 01/07/19 Range/Units 17:48 20:00 05:26 Sodium 141 139 141 (137-145) mmol/L Potassium 4.1 4.6 4.0 (3.6-5.0) mmol/L Chloride 94.5 L 93.7 L 94.7 L (98-107) mmol/L Carbon Dioxide 31 H 22 D 32 H D (22-30) mmol/L BUN 21 H 23 H 29 H (7-17) mg/dL Creatinine 5.2 H 5.5 H 6.7 H (0.7-1.2) mg/dL Glucose 97 80 89 (65-100) mg/dL Calcium 9.8 9.9 9.5 (8.4-10.2) mg/dL AST 18 (5-40) units/L ALT 9 (7-56) units/L Alkaline Phosphatase 104 (35-129) units/L Total Protein 8.0 (6.3-8.2) g/dL Albumin 4.1 (3.9-5) g/dL Assessment and Plan Chest pain low probability for PE via VQ scan ESRD on dialysis Hypertension Sleep apnea
--- NOTE | 2019-01-07 17:11 | Progress Note ---
Assessment and Plan Assessment and plan: 73-year-old -[place] female with history of ESRD on HD M/W/T/F, hypertension, GERD, arthritis, gout, questionable CHF who presents to [facility] ED with complaints of shortness of breath with activity and epigastric chest pain with radiation to neck. Patient states that she had a stress test done in October of this year at [facility] in [facility]. At which time she was told that she has a heart blockage. She denies any further cardiac workup or treatment. She has an established web machine tender here in [place], Dr. Mahmood. Her primary care physician is Dr. Martinez. We will attempt to Medical records from [facility] and consult cardiology. Troponin negative 2. --Chest pain; rule out acute coronary syndrome History of abnormal stress test 2 months ago Cardiology evaluation noted and appreciated Possible heart cath tomorrow --Loculated right pleural effusion/? Right lung mass Continue current management, pulmonary consulted Pending evaluation --End-stage renal disease; on hemodialysis HD per schedule, nephrology following --Hypertension; moderate control, continue current antihypertensives When necessary medications --Obesity; BMI 34.7, Advised weight reduction when medically stable --Possible obstructive sleep apnea; CPAP at night, patient needs outpatient sleep study If not done already --DVT prophylaxis; heparin and renal dose --Full CODE STATUS Monitor closely and adjust the management as needed Plan of care is reviewed with the patient and her nurse History Interval history: Patient seen and examined medical records reviewed Patient complaints of vague chest pain intermittent Vital signs noted Hospitalist Physical - Constitutional Vitals: Temp Pulse Resp BP Pulse Ox 98.1 F 65 18 134/67 91 01/07/19 08:37 01/07/19 13:53 01/07/19 10:06 01/07/19 13:53 01/07/19 10:17 General appearance: Present: no acute distress, well-nourished, obese - EENT Eyes: Present: PERRL, EOM intact - Neck Neck: Present: supple, normal ROM - Respiratory Respiratory effort: normal Respiratory: bilateral: diminished, negative: rales, rhonchi, wheezing - Cardiovascular Rhythm: regular Heart Sounds: Present: S1 & S2 - Extremities Extremities: no ischemia, No edema - Abdominal General gastrointestinal: soft, non-tender, non-distended, normal bowel sounds - Integumentary Integumentary: Present: clear, warm - Psychiatric Psychiatric: appropriate mood/affect, cooperative - Neurologic Neurologic: CNII-XII intact, moves all extremities Results - Labs CBC & Chem 7: 01/07/19 05:26 01/08/19 04:58 Labs: Laboratory Last Values WBC 6.8 K/mm3 (4.5-11.0) 01/07/19 05:26 RBC 3.78 M/mm3 (3.65-5.03) 01/07/19 05:26 Hgb 11.1 gm/dl (10.1-14.3) 01/07/19 05:26 Hct 34.1 % (30.3-42.9) 01/07/19 05:26 MCV 90 fl (79-97) 01/07/19 05:26 MCH 29 pg (28-32) 01/07/19 05:26 MCHC 33 % (30-34) 01/07/19 05:26 RDW 18.8 % (13.2-15.2) H 01/07/19 05:26 Plt Count 167 K/mm3 (140-440) 01/07/19 05:26 Lymph % (Auto) 27.2 % (13.4-35.0) 01/07/19 05:26 Angelina % (Auto) 10.6 % (0.0-7.3) H 01/07/19 05:26 Eos % (Auto) 1.7 % (0.0-4.3) 01/07/19 05:26 Baso % (Auto) 0.7 % (0.0-1.8) 01/07/19 05:26 Lymph # 1.9 K/mm3 (1.2-5.4) 01/07/19 05:26 Angelina # 0.7 K/mm3 (0.0-0.8) 01/07/19 05:26 Eos # 0.1 K/mm3 (0.0-0.4) 01/07/19 05:26 Baso # 0.0 K/mm3 (0.0-0.1) 01/07/19 05:26 Seg Neutrophils % 59.8 % (40.0-70.0) 01/07/19 05:26 Seg Neutrophils # 4.1 K/mm3 (1.8-7.7) 01/07/19 05:26 PT 12.9 Sec. (12.2-14.9) 01/06/19 17:48 INR 1.00 (0.87-1.13) 01/06/19 17:48 APTT 29.7 Sec. (24.2-36.6) 01/06/19 17:48 767.68 ng/mlDDU (0-234) H 01/06/19 17:48 Sodium 141 mmol/L (137-145) 01/07/19 05:26 Potassium 4.0 mmol/L (3.6-5.0) 01/07/19 05:26 Chloride 94.7 mmol/L (98-107) L 01/07/19 05:26 Carbon Dioxide 32 mmol/L (22-30) H D 01/07/19 05:26 18 mmol/L 01/07/19 05:26 BUN 29 mg/dL (7-17) H 01/07/19 05:26 6.7 mg/dL (0.7-1.2) H 01/07/19 05:26 Estimated GFR 7 ml/min 01/07/19 05:26 4 % 01/07/19 05:26 Glucose 89 mg/dL (65-100) 01/07/19 05:26 Calcium 9.5 mg/dL (8.4-10.2) 01/07/19 05:26 0.40 mg/dL (0.1-1.2) 01/06/19 17:48 AST 18 units/L (5-40) 01/06/19 17:48 ALT 9 units/L (7-56) 01/06/19 17:48 104 units/L (35-129) 01/06/19 17:48 < 0.010 ng/mL (0.00-0.029) 01/06/19 20:00 8.0 g/dL (6.3-8.2) 01/06/19 17:48 4.1 g/dL (3.9-5) 01/06/19 17:48 1.1 % 01/06/19 17:48 Triglycerides 91 mg/dL (2-149) 01/06/19 20:00 Cholesterol 201 mg/dL (50-199) H 01/06/19 20:00 115 mg/dL (50-130) 01/06/19 20:00 75 mg/dL (40-59) H 01/06/19 20:00 2.68 % 01/06/19 20:00 23 units/L (13-60) 01/06/19 17:48 Active Medications - Current Medications Current Medications: Generic Name Dose Route Start Last Admin Trade Name Freq PRN Reason Stop Dose Admin Acetaminophen 650 mg 01/06/19 21:24 Tylenol PO Q4H PRN Pain MILD(1-3)/Fever >100.5/VILLALBA Albumin Human 25 gm 01/07/19 12:22 Alburx 25% (Albumin) IV SHIELA PRN Hypotension Albuterol 2.5 mg 01/06/19 22:14 Proventil IH Q4HRT PRN Shortness Of Breath Amlodipine Besylate 10 mg 01/07/19 10:00 01/07/19 10:21 Norvasc PO Not Given DAILY LORRIE Aspirin 81 mg 01/07/19 10:00 01/07/19 10:20 Baby Aspirin PO 81 mg QDAY [facility]E Administration Atorvastatin Calcium 40 mg 01/06/19 22:00 01/06/19 23:28 Lipitor PO 40 mg QHS [facility] Administration Clonidine HCl 0.1 mg 01/07/19 08:00 01/07/19 13:51 Catapres PO 0.1 mg TID [facility]OR[facility]E Administration Heparin Sodium (Porcine) 5,000 unit 01/06/19 22:00 01/07/19 10:22 Heparin SUB-Q 5,000 unit Q12HR [facility] Administration Hydralazine HCl 100 mg 01/07/19 08:00 01/07/19 13:52 Apresoline PO 100 mg TID [facility]E Administration Hydralazine HCl 10 mg 01/06/19 22:06 01/06/19 23:27 Apresoline IV 10 mg Q4H PRN Administration Blood Pressure Hydromorphone HCl 0.5 mg 01/06/19 21:29 Dilaudid IV 01/07/19 23:59 Q3H PRN Pain , Severe (7-10) Sodium Chloride 100 mls @ 999 mls/hr 01/07/19 12:22 Nacl 0.9% IV SHIELA PRN Hypotension Morphine Sulfate 2 mg 01/06/19 21:24 Morphine IV 01/07/19 23:59 Q4H PRN Pain, Moderate (4-6) Nitroglycerin 0.4 mg 01/06/19 21:24 Nitrostat SL Q5M PRN Chest Pain Ondansetron HCl 4 mg 01/06/19 21:24 Zofran IV Q8H PRN Nausea And Vomiting Oxycodone/Acetaminophen 1 tab 01/06/19 21:31 Percocet 5/325 PO Q6H PRN Pain, Moderate (4-6) Pantoprazole Sodium 40 mg 01/07/19 10:00 01/07/19 10:20 Protonix PO 40 mg DAILY [facility] Administration Sodium Chloride 10 ml 01/06/19 22:00 01/07/19 10:20 Sodium Chloride Flush Syringe 10 Ml IV 10 ml BID [facility] Administration Sodium Chloride 10 ml 01/06/19 21:24 Sodium Chloride Flush Syringe 10 Ml IV PRN PRN LINE FLUSH
--- NOTE | 2019-01-07 18:28 | Consultation ---
History of Present Illness Consult date: 01/07/19 Reason for consult: dyspnea, chest pain, pleural effusion History of present illness: pulmonary and critical care consultation DR. ELVER JOSEPH THANK YOU FOR ASKING US TO PARTICIPATE IN THE CARE OF THIS PATIENT. 73-year-old -[place] female with history of ESRD on HD M/W/T/F, hypertension, GERD, arthritis, gout, questionable CHF who presents to [facility] ED with complaints of shortness of breath and chest pain. Patient states that she began to experience chest pain earlier today shortly after completing her dialysis session. She states that the chest pain radiates to her neck was accompanied by nausea and diaphoresis. She describes her pain as sharp and rates it 5/10. It is relieved by pain medication and rest. Patient also complains of shortness of breath with activity. Patient states that she had a stress test done in October of this year at [facility] in [facility]. At which time she was told that she has a heart blockage. She denies any further cardiac workup or treatment. She has an established neuropsychology director here in [place], Dr. Mahmood. Her primary care physician is Dr. Martinez. 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 She has six children Patient alert, awake and resting on room air. O2 saturation 96%. Chest xray done 01/06/19 IMPRESSION: A right hemithorax density with convex medial margin is stable since the prior study and most likely represents a loculated pleural effusion. Ultrasound evaluation is recommended. Mild cardiomegaly. PERFUSION LUNG SCAN done 01/07/19 Reported Low probability for pulmonary emboli. Past History Past Medical History: arthritis, dialysis (M/W/F), ESRD, GERD, heart failure, hypertension, other (gout) Past Surgical History: Other (left upper extremity AV fistula) Social history: no significant social history Family history: no significant family history Medications and Allergies Allergies Allergy/AdvReac Type Severity Reaction Status Date / Time No Known Allergies Allergy Verified 03/08/18 12:44 Home Medications Medication Instructions Recorded Confirmed Last Taken Type Omeprazole 40 mg PO DAILY 03/08/18 01/06/19 03/12/18 07:45 History Pravastatin Sodium [Pravastatin] 10 mg PO QHS 03/08/18 01/06/1903/11/18 History amLODIPine [Norvasc] 10 mg PO DAILY 03/08/18 01/06/19 03/12/18 07:45 History cloNIDine [Catapres] 0.1 mg PO TID 03/08/18 01/06/19 03/12/18 07:45 History hydrALAZINE [Apresoline TAB] 100 mg PO TID 03/08/18 01/06/19 03/12/18 07:45 History HYDROcodone/APAP 7.5-325 [[place] 1 each PO Q6HR PRN #40 tablet 03/12/18 01/06/19 Unknown Rx 7.5/325] Acetaminophen 500 mg PO Q8H PRN #20 tablet 06/09/18 01/06/19 Unknown Rx Cyclobenzaprine [Flexeril] 10 mg PO QHS PRN #10 tablet 06/09/18 01/06/19 Unknown Rx Active Meds: Active Medications Acetaminophen (Tylenol) 650 mg PO Q4H PRN PRN Reason: Pain MILD(1-3)/Fever >100.5/VILLALBA Albumin Human (Alburx 25% (Albumin)) 25 gm IV SHIELA PRN PRN Reason: Hypotension Albuterol (Proventil) 2.5 mg IH Q4HRT PRN PRN Reason: Shortness Of Breath Amlodipine Besylate (Norvasc) 10 mg PO DAILY [facility] Last Admin: 01/07/19 10:21 Dose: Not Given Documented by: Aspirin (Baby Aspirin) 81 mg PO QDAY [facility] Last Admin: 01/07/19 10:20 Dose: 81 mg Documented by: Atorvastatin Calcium (Lipitor) 40 mg PO QHS [facility] Last Admin: 01/06/19 23:28 Dose: 40 mg Documented by: Clonidine HCl (Catapres) 0.1 mg PO TID [facility] Last Admin: 01/07/19 13:51 Dose: 0.1 mg Documented by: Heparin Sodium (Porcine) (Heparin) 5,000 unit SUB-Q Q12HR [facility] Last Admin: 01/07/19 10:22 Dose: 5,000 unit Documented by: Hydralazine HCl (Apresoline) 100 mg PO TID [facility] Last Admin: 01/07/19 13:52 Dose: 100 mg Documented by: Hydralazine HCl (Apresoline) 10 mg IV Q4H PRN PRN Reason: Blood Pressure Last Admin: 01/06/19 23:27 Dose: 10 mg Documented by: Hydromorphone HCl (Dilaudid) 0.5 mg IV Q3H PRN PRN Reason: Pain , Severe (7-10) Stop: 01/07/19 23:59 Sodium Chloride (Nacl 0.9%) 100 mls @ 999 mls/hr IV SHIELA PRN PRN Reason: Hypotension Morphine Sulfate (Morphine) 2 mg IV Q4H PRN PRN Reason: Pain, Moderate (4-6) Stop: 01/07/19 23:59 Nitroglycerin (Nitrostat) 0.4 mg SL Q5M PRN PRN Reason: Chest Pain Ondansetron HCl (Zofran) 4 mg IV Q8H PRN PRN Reason: Nausea And Vomiting Oxycodone/Acetaminophen (Percocet 5/325) 1 tab PO Q6H PRN PRN Reason: Pain, Moderate (4-6) Pantoprazole Sodium (Protonix) 40 mg PO DAILY [facility] Last Admin: 01/07/19 10:20 Dose: 40 mg Documented by: Sodium Chloride (Sodium Chloride Flush Syringe 10 Ml) 10 ml IV BID [facility] Last Admin: 01/07/19 10:20 Dose: 10 ml Documented by: Sodium Chloride (Sodium Chloride Flush Syringe 10 Ml) 10 ml IV PRN PRN PRN Reason: LINE FLUSH Review of Systems All systems: negative Physical Examination Vital signs: Vital Signs Resp 17 01/06/19 16:44 General appearance: no acute distress, alert Eyes: non-icteric ENT: oropharynx moist Neck: supple, no JVD Ascultation: Bilateral: diminished breath sounds Cardiovascular: regular rate and rhythm Gastrointestinal: normoactive bowel sounds, soft, non-tender Integumentary: normal Extremities: no cyanosis, no edema Musculoskeletal: no deformities Gait: other (Patient resting in bed at this time.) normal mental status, non-focal exam, pupils equal and round, CN II-XII normal mood appropriate Results - Laboratory Findings CBC and BMP: 01/07/19 05:26 01/07/19 05:26 PT/INR, D-dimer PT 12.9 Sec. (12.2-14.9) 01/06/19 17:48 INR 1.00 (0.87-1.13) 01/06/19 17:48 767.68 ng/mlDDU (0-234) H 01/06/19 17:48 Abnormal lab findings: Abnormal Labs 01/06/19 01/06/19 01/06/19 17:48 17:48 17:48 RDW 18.2 H [place] % (Auto) 10.0 H Lymph # 0.9 L Seg Neutrophils % 72.3 H D-Dimer 767.68 H Chloride 94.5 L Carbon Dioxide 31 H BUN 21 H Creatinine 5.2 H Cholesterol HDL Cholesterol 01/06/19 01/06/19 01/07/19 20:00 20:00 05:26 RDW 18.8 H [place] % (Auto) 10.6 H Lymph # Seg Neutrophils % D-Dimer Chloride 93.7 L Carbon Dioxide BUN 23 H Creatinine 5.5 H Cholesterol 201 H HDL Cholesterol 75 H 01/07/19 05:26 RDW [place] % (Auto) Lymph # Seg Neutrophils % D-Dimer Chloride 94.7 L Carbon Dioxide 32 H D BUN 29 H Creatinine 6.7 H Cholesterol HDL Cholesterol - Diagnostic Findings Chest x-ray: report reviewed, image reviewed Additional studies: Chest xray done 01/06/19 IMPRESSION: A right hemithorax density with convex medial margin is stable since the prior study and most likely represents a loculated pleural effusion. Ultrasound evaluation is recommended. Mild cardiomegaly. PERFUSION LUNG SCAN done 01/07/19 Reported Low probability for pulmonary emboli. Assessment and Plan 73-year-old -[place] female with history of ESRD on HD M/W/T/F, hypertension, GERD, arthritis, gout, questionable CHF who presents to [facility] ED with complaints of shortness of breath and chest pain. Patient states that she began to experience chest pain earlier today shortly after completing her dialysis session. She states that the chest pain radiates to her neck was accompanied by nausea and diaphoresis. She describes her pain as sharp and rates it 5/10. It is relieved by pain medication and rest. Patient also complains of shortness of breath with activity. Patient states that she had a stress test done in October of this year at [facility] in [facility]. At which time she was told that she has a heart blockage. She denies any further cardiac workup or treatment. She has an established neuropsychology director here in [place], Dr. Mahmood. Her primary care physician is Dr. Martinez. 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 She has six children Patient alert, awake and resting on room air. O2 saturation 96%. Chest xray done 01/06/19 IMPRESSION: A right hemithorax density with convex medial margin is stable since the prior study and most likely represents a loculated pleural effusion. Ultrasound evaluation is recommended. Mild cardiomegaly. PERFUSION LUNG SCAN done 01/07/19 Reported Low probability for pulmonary emboli. - Patient Problems (1) Chest pain Current Visit: Yes Status: Acute Plan to address problem: Patient is on Percocet ,if it is pleuritic chest pain. Recommend to consult cardiology also. (2) Pleural effusion, right Current Visit: Yes Status: Acute Plan to address problem: A right hemithorax density with convex medial margin is stable since the prior study and most likely represents a loculated pleural effusion. Ultrasound evaluation is recommended. Obtaining ultrasound of chest. (3) Shortness of breath Current Visit: Yes Status: Acute Plan to address problem: O2 2 litres via nasal canula. Albuterol inhaler HFA 2 puffs po qid prn for shortness of breath. ABGs on room air. (4) ESRD (end stage renal disease) Current Visit: Yes Status: Acute Plan to address problem: Management as per nephrology (5) CHF (congestive heart failure) Current Visit: Yes Status: Acute Plan to address problem: Management as per primary care and cardiology. (6) HTN (hypertension) Current Visit: Yes Status: Acute Plan to address problem: Management as per primary care. (7) Obesity (BMI 30-39.9) Current Visit: Yes Status: Acute Plan to address problem: Recommend to loose weight. Diet and exercise. Continue S/C Heparin. If patient has sleep problems. Recommend sleep study as out patient.
[2019-01-07 23:01] LABS: Hepatitis B Surface Antigen Non-Reactive (Negative); Hepatitis C Virus Antibody Non-Reactive (NonReactive)
[2019-01-08 06:42] LABS: INR 1.02 (0.87-1.13)
[2019-01-08 06:52] LABS: Calcium 9.1 mg/dL (8.4-10.2)
[2019-01-08] MEDS ORDERED: HALFPRIN EC PO ONE ×3 (07:23→07:26)
[2019-01-08] MEDS: CATAPRES PO SCH ×3 (08:00→20:19)
[2019-01-08] MEDS: APRESOLINE PO SCH ×3 (08:00→20:19)
--- NOTE | 2019-01-08 08:48 | Progress Note ---
Assessment and Plan Assessment and plan: 73-year-old -[place] female with history of ESRD on HD M/W/T/F, hypertension, GERD, arthritis, gout, questionable CHF who presents to [facility] ED with complaints of shortness of breath with activity and epigastric chest pain with radiation to neck. Patient states that she had a stress test done in October of this year at [facility] in [facility]. At which time she was told that she has a heart blockage. She denies any further cardiac workup or treatment. She has an established director hematology here in [place], Dr. Mahmood. Her primary care physician is Dr. Martinez. --Chest pain; status post heart cath today Normal coronaries, continue current management Post heart cath hemodialysis --Loculated right pleural effusion/? Right lung mass Continue current management, pulmonary consulted Follow chest ultrasound --End-stage renal disease; on hemodialysis HD per schedule, nephrology following --Hypertension; moderate control, continue current antihypertensives When necessary medications --Obesity; BMI 34.7, Advised weight reduction when medically stable --Possible obstructive sleep apnea; CPAP at night, patient needs outpatient sleep study If not done already --DVT prophylaxis; heparin and renal dose --Full CODE STATUS Monitor closely and adjust the management as needed Plan of care is reviewed with the patient and her nurse History Interval history: Patient was seen and examined medical records reviewed Patient had left heart catheterization today, findings noted Receiving hemodialysis postprocedure Vital signs noted Hospitalist Physical - Constitutional Vitals: Temp Pulse Resp BP Pulse Ox 97.4 F L 60 16 166/76 96 01/08/19 07:00 01/08/19 07:00 01/08/19 07:00 01/08/19 07:00 01/08/19 07:00 General appearance: Present: no acute distress, well-nourished, obese - EENT Eyes: Present: PERRL, EOM intact - Neck Neck: Present: supple, normal ROM - Respiratory Respiratory effort: normal Respiratory: bilateral: diminished, negative: rales, rhonchi, wheezing - Cardiovascular Rhythm: regular Heart Sounds: Present: S1 & S2 - Extremities Extremities: no ischemia, No edema - Abdominal General gastrointestinal: soft, non-tender, non-distended, normal bowel sounds - Integumentary Integumentary: Present: clear, warm - Psychiatric Psychiatric: appropriate mood/affect, cooperative - Neurologic Neurologic: CNII-XII intact, moves all extremities Results - Labs CBC & Chem 7: 01/07/19 05:26 01/08/19 04:58 Labs: Laboratory Last Values WBC 6.8 K/mm3 (4.5-11.0) 01/07/19 05:26 RBC 3.78 M/mm3 (3.65-5.03) 01/07/19 05:26 Hgb 11.1 gm/dl (10.1-14.3) 01/07/19 05:26 Hct 34.1 % (30.3-42.9) 01/07/19 05:26 MCV 90 fl (79-97) 01/07/19 05:26 MCH 29 pg (28-32) 01/07/19 05:26 MCHC 33 % (30-34) 01/07/19 05:26 RDW 18.8 % (13.2-15.2) H 01/07/19 05:26 Plt Count 167 K/mm3 (140-440) 01/07/19 05:26 Lymph % (Auto) 27.2 % (13.4-35.0) 01/07/19 05:26 [place] % (Auto) 10.6 % (0.0-7.3) H 01/07/19 05:26 Eos % (Auto) 1.7 % (0.0-4.3) 01/07/19 05:26 Baso % (Auto) 0.7 % (0.0-1.8) 01/07/19 05:26 Lymph # 1.9 K/mm3 (1.2-5.4) 01/07/19 05:26 [place] # 0.7 K/mm3 (0.0-0.8) 01/07/19 05:26 Eos # 0.1 K/mm3 (0.0-0.4) 01/07/19 05:26 Baso # 0.0 K/mm3 (0.0-0.1) 01/07/19 05:26 Seg Neutrophils % 59.8 % (40.0-70.0) 01/07/19 05:26 Seg Neutrophils # 4.1 K/mm3 (1.8-7.7) 01/07/19 05:26 PT 13.1 Sec. (12.2-14.9) 01/08/19 04:58 INR 1.02 (0.87-1.13) 01/08/19 04:58 APTT 29.7 Sec. (24.2-36.6) 01/06/19 17:48 767.68 ng/mlDDU (0-234) H 01/06/19 17:48 Sodium 139 mmol/L (137-145) 01/08/19 04:58 Potassium 4.2 mmol/L (3.6-5.0) 01/08/19 04:58 Chloride 92.8 mmol/L (98-107) L 01/08/19 04:58 Carbon Dioxide 29 mmol/L (22-30) 01/08/19 04:58 21 mmol/L 01/08/19 04:58 BUN 44 mg/dL (7-17) H 01/08/19 04:58 8.7 mg/dL (0.7-1.2) H 01/08/19 04:58 Estimated GFR 5 ml/min 01/08/19 04:58 5 % 01/08/19 04:58 Glucose 95 mg/dL (65-100) 01/08/19 04:58 POC Glucose 122 (70-105) H 01/07/19 21:02 Calcium 9.1 mg/dL (8.4-10.2) 01/08/19 04:58 0.40 mg/dL (0.1-1.2) 01/06/19 17:48 AST 18 units/L (5-40) 01/06/19 17:48 ALT 9 units/L (7-56) 01/06/19 17:48 104 units/L (35-129) 01/06/19 17:48 < 0.010 ng/mL (0.00-0.029) 01/06/19 20:00 8.0 g/dL (6.3-8.2) 01/06/19 17:48 4.1 g/dL (3.9-5) 01/06/19 17:48 1.1 % 01/06/19 17:48 Triglycerides 91 mg/dL (2-149) 01/06/19 20:00 Cholesterol 201 mg/dL (50-199) H 01/06/19 20:00 115 mg/dL (50-130) 01/06/19 20:00 75 mg/dL (40-59) H 01/06/19 20:00 2.68 % 01/06/19 20:00 23 units/L (13-60) 01/06/19 17:48 Hepatitis A IgM Ab Non-reactive (NonReactive) 01/07/19 21:48 Hep Bs Antigen Non-reactive (Negative) 01/07/19 21:48 Hep B Core IgM Ab Non-reactive (NonReactive) 01/07/19 21:48 Non-reactive (NonReactive) 01/07/19 21:48 Active Medications - Current Medications Current Medications: Generic Name Dose Route Start Last Admin Trade Name Freq PRN Reason Stop Dose Admin Acetaminophen 650 mg 01/06/19 21:24 Tylenol PO Q4H PRN Pain MILD(1-3)/Fever >100.5/VILLALBA Albumin Human 25 gm 01/07/19 12:22 Alburx 25% (Albumin) IV SHIELA PRN Hypotension Albuterol 2.5 mg 01/06/19 22:14 Proventil IH Q4HRT PRN Shortness Of Breath Amlodipine Besylate 10 mg 01/07/19 10:00 01/07/19 10:21 Norvasc PO Not Given DAILY LORRIE Aspirin 81 mg 01/07/19 10:00 01/07/19 10:20 Baby Aspirin PO 81 mg QDAY LORRIE Administration Atorvastatin Calcium 40 mg 01/06/19 22:00 01/07/19 21:31 Lipitor PO 40 mg QHS LORRIE Administration Clonidine HCl 0.1 mg 01/07/19 08:00 01/07/19 21:31 Catapres PO 0.1 mg TID LORRIE Administration Heparin Sodium (Porcine) 5,000 unit 01/06/19 22:00 01/07/19 21:31 Heparin SUB-Q 5,000 unit Q12HR LORRIE Administration Hydralazine HCl 100 mg 01/07/19 08:00 01/07/19 21:31 Apresoline PO 100 mg TID LORRIE Administration Hydralazine HCl 10 mg 01/06/19 22:06 01/06/19 23:27 Apresoline IV 10 mg Q4H PRN Administration Blood Pressure Sodium Chloride 100 mls @ 999 mls/hr 01/07/19 12:22 Nacl 0.9% IV SHIELA PRN Hypotension Nitroglycerin 0.4 mg 01/06/19 21:24 Nitrostat SL Q5M PRN Chest Pain Ondansetron HCl 4 mg 01/06/19 21:24 Zofran IV Q8H PRN Nausea And Vomiting Oxycodone/Acetaminophen 1 tab 01/06/19 21:31 Percocet 5/325 PO Q6H PRN Pain, Moderate (4-6) Pantoprazole Sodium 40 mg 01/07/19 10:00 01/07/19 10:20 Protonix PO 40 mg DAILY LORRIE Administration Sodium Chloride 10 ml 01/06/19 22:00 01/07/19 21:32 Sodium Chloride Flush Syringe 10 Ml IV 10 ml BID LORRIE Administration Sodium Chloride 10 ml 01/06/19 21:24 Sodium Chloride Flush Syringe 10 Ml IV PRN PRN LINE FLUSH
[2019-01-08] MEDS ORDERED: HEPARIN/NS 5000 UNIT/500ML(CATH LAB) 1,000 ML IR ONE (09:24)
[2019-01-08] MEDS ORDERED: SUBLIMAZE ONE (09:25)
[2019-01-08] MEDS ORDERED: XYLOCAINE 2% INFILTRATI ONE (09:25)
[2019-01-08] MEDS ORDERED: HEPARIN 10,000 UNITS/10 ML ONE (09:25)
[2019-01-08] MEDS ORDERED: VERSED ONE (09:25)
[2019-01-08] MEDS ORDERED: NITROGLYCERIN SYRINGE 0 ML ONE (09:25)
[2019-01-08] MEDS ORDERED: NACL 0.9% 500 ML 500 ML ONE (09:37)
[2019-01-08] MEDS ORDERED: ULTRAM PO PRN (10:17)
[2019-01-08] MEDS ORDERED: NORCO 5/325 PO PRN (10:17)
[2019-01-08] MEDS: PROTONIX PO SCH (10:52)
[2019-01-08] MEDS: BABY ASPIRIN PO SCH (10:52)
[2019-01-08] MEDS: HEPARIN SUB-Q SCH ×2 (10:54→21:26)
[2019-01-08] MEDS: SODIUM CHLORIDE FLUSH SYRINGE 10 ML IV SCH ×2 (10:54→21:29)
[2019-01-08] MEDS: NORVASC PO SCH (14:01)
--- NOTE | 2019-01-08 14:46 | Progress Note ---
Assessment and Plan Impression: * ESRD * chest pain * HTN urgency * Hx HTN * GERD * Arthritis * Gout Plan: * Continue supportive care * hd q MWF * uf as tolerated * Continuous telemetry monitoring * Pain mgmt * followed by cardiology, plans for lhc noted * Obtain medical records from [facility] * DVT PPX on Heparin and SCD's Subjective Date of service: 01/08/19 Principal diagnosis: esrd Interval history: resting well in bed today Objective - Exam Narrative Exam: Physical exam General appearance: Present: No acute distress, alert and oriented 3, older adult -Beninese female - EENT Eyes: Present: PERRL, EOM intact ENT: hearing intact, normal dentition - Neck Neck: Present: supple, normal ROM - Respiratory Respiratory effort: Non-labored Respiratory: Clear throughout - Cardiovascular Heart rate: 67 (bpm) Rhythm: Sinus rhythm Heart Sounds: Present: S1 & S2. Absent: rub, click - Extremities Extremities: no ischemia, pulses intact, abnormal (left upper extremity AV fistula) - Peripheral Assessment Peripheral Pulses: within normal limits - Abdominal General gastrointestinal: soft, non-tender, normal bowel sounds - Integumentary Integumentary: Present: warm, dry - Musculoskeletal Musculoskeletal: Able to move all extremities -Neurological Neurological: CN II-XII intact - Psychiatric Psychiatric: cooperative - Vital Signs Vital signs: Vital Signs - 12hr 01/08/19 01/08/19 04:00 07:00 Temperature 98.0 F 97.4 F L Pulse Rate 68 60 Respiratory 18 16 Rate Blood Pressure 127/54 Blood Pressure 166/76 [Right] O2 Sat by Pulse 96 96 Oximetry - Lab 01/07/19 05:26 01/08/19 04:58 Most recent lab results Calcium 9.1 mg/dL (8.4-10.2) 01/08/19 04:58 Medications & Allergies - Medications Allergies/Adverse Reactions: Allergies No Known Allergies Allergy (Verified 03/08/18 12:44) Home Medications: Home Medications Medication Instructions Recorded Confirmed Last Taken Type Omeprazole 40 mg PO DAILY 03/08/18 01/06/19 03/12/18 07:45 History Pravastatin Sodium [Pravastatin] 10 mg PO QHS 03/08/18 01/06/19 03/11/18 History amLODIPine [Norvasc] 10 mg PO DAILY 03/08/18 01/06/19 03/12/18 07:45 History cloNIDine [Catapres] 0.1 mg PO TID 03/08/18 01/06/19 03/12/18 07:45 History hydrALAZINE [Apresoline TAB] 100 mg PO TID 03/08/18 01/06/19 03/12/18 07:45 History HYDROcodone/APAP 7.5-325 [[place] 1 each PO Q6HR PRN #40 tablet 03/12/18 01/06/19 Unknown Rx 7.5/325] Acetaminophen 500 mg PO Q8H PRN #20 tablet 06/09/18 01/06/19 Unknown Rx Cyclobenzaprine [Flexeril] 10 mg PO QHS PRN #10 tablet 06/09/18 01/06/19 Unknown Rx Active Medications: Generic Name Dose Route Start Last Admin Trade Name Freq PRN Reason Stop Dose Admin Acetaminophen 650 mg 01/06/19 21:24 Tylenol PO Q4H PRN Pain MILD(1-3)/Fever >100.5/VILLALBA Acetaminophen/Hydrocodone Bitart 1 each 01/08/19 10:17 [place] 5/325 PO Q4H PRN Pain, Moderate (4-6) Albumin Human 25 gm 01/07/19 12:22 Alburx 25% (Albumin) IV SHIELA PRN Hypotension Albuterol 2.5 mg 01/06/19 22:14 Proventil IH Q4HRT PRN Shortness Of Breath Amlodipine Besylate 10 mg 01/07/19 10:00 01/07/19 10:21 Norvasc PO Not Given DAILY LORRIE Aspirin 81 mg 01/07/19 10:00 01/08/19 10:52 Baby Aspirin PO 81 mg QDAY LORRIE Administration Atorvastatin Calcium 40 mg 01/06/19 22:00 01/07/19 21:31 Lipitor PO 40 mg QHS LORRIE Administration Clonidine HCl 0.1 mg 01/07/19 08:00 01/08/19 08:00 Catapres PO Not Given TID [facility] Heparin Sodium (Porcine) 5,000 unit 01/06/19 22:00 01/08/19 10:54 Heparin SUB-Q 5,000 unit Q12HR LORRIE Administration Hydralazine HCl 100 mg 01/07/19 08:00 01/08/19 08:00 Apresoline PO Not Given TID LORRIE Hydralazine HCl 10 mg 01/06/19 22:06 01/06/19 23:27 Apresoline IV 10 mg Q4H PRN Administration Blood Pressure Sodium Chloride 100 mls @ 999 mls/hr 01/07/19 12:22 Nacl 0.9% IV SHIELA PRN Hypotension Nitroglycerin 0.4 mg 01/06/19 21:24 Nitrostat SL Q5M PRN Chest Pain Ondansetron HCl 4 mg 01/06/19 21:24 Zofran IV Q8H PRN Nausea And Vomiting Oxycodone/Acetaminophen 1 tab 01/06/19 21:31 Percocet 5/325 PO Q6H PRN Pain, Moderate (4-6) Pantoprazole Sodium 40 mg 01/07/19 10:00 01/08/19 10:52 Protonix PO 40 mg DAILY LORRIE Administration Sodium Chloride 10 ml 01/06/19 22:00 01/08/19 10:54 Sodium Chloride Flush Syringe 10 Ml IV 10 ml BID LORRIE Administration Sodium Chloride 10 ml 01/06/19 21:24 Sodium Chloride Flush Syringe 10 Ml IV PRN PRN LINE FLUSH Tramadol HCl 50 mg 01/08/19 10:17 Ultram PO Q4H PRN Pain, Mild (1-3)
--- NOTE | 2019-01-08 15:58 | Cardiac Catherization Report ---
ATTENDING PHYSICIAN: Dr. Manpreet Lerma. PROCEDURE: 1. Left heart catheterization. 2. Left ventriculogram via hand injection. REASON FOR PROCEDURE: The patient is a 73-year-old female with past medical history significant for end-stage renal disease on hemodialysis and hypertension, who had a previous abnormal stress test done in the outpatient setting by her physician in [place]. The patient presented to the Emergency Room at [facility] with recurrent chest pain. COMPLICATIONS: None. ESTIMATED BLOOD LOSS: Less than 30 mL. ESTIMATED CONTRAST USED: 140 mL. SEDATION START: 9:51 a.m. SEDATION END: 10:15 a.m. PROCEDURE IN DETAIL: The patient was brought to the cardiac catheterization lab in usual fasting state. The patient was prepped and draped in the usual sterile fashion. 10 mL of 1% lidocaine were injected around the right common femoral vessels and a 6-Syriac sheath was placed into the right common femoral artery via modified Seldinger technique. Next, the left Jarett diagnostic catheter was engaged into the left main coronary artery and angiography performed in multiple views. Multiple catheters were attempted to engage the right coronary artery, but was unsuccessful. The right coronary artery was nonselectively angiographed utilizing aortic root angiography via mechanical injection. Left ventriculogram was performed utilizing the JR4 catheter and performed via hand injection. RESULTS: Left main coronary artery shows luminal irregularities without significant stenosis. LAD, the proximal left anterior descending coronary artery shows mild calcification. The vessel shows luminal irregularities without significant stenosis. The left circumflex coronary artery is a moderate caliber nondominant vessel with mild diffuse disease without significant stenosis. The right coronary artery appears to have a posterior takeoff. The vessel shows mild diffuse disease without significant stenosis. It is a dominant vessel. Aortic root angiography shows a normal sized aorta without plaquing. CONCLUSIONS: No significant coronary artery disease in a right dominant system. The right coronary artery has what appears to be a posterior takeoff. Left ventriculogram shows normal ejection fraction of 50-55%. Aortic root angiography shows a normal sinus root without significant plaquing. RECOMMENDATIONS: Recommend aggressive risk factor modification and maximal medical therapy. JOB# [id number] MR/ASHLEY
--- NOTE | 2019-01-08 17:51 | Progress Note ---
Assessment and Plan Patient resting on room air. No acute respiratory distress. Patient has cardiac cath to day. Ultrasound of chest not done yet. ABG on room air. POC ABG pH 7.430 (7.35-7.45) 01/08/19 12:17 POC ABG pCO2 46.3 (35-45) H 01/08/19 12:17 POC ABG pO2 78 (80-105) L 01/08/19 12:17 POC ABG HCO3 30.7 (22-26 mml/L) 01/08/19 12:17 POC ABG Total CO2 32 (23-27mmol/L) 01/08/19 12:17 POC ABG O2 Sat 96 01/08/19 12:17 - Patient Problems (1) Chest pain Current Visit: Yes Status: Acute Plan to address problem: No complaint of chest pain to day. (2) Pleural effusion, right Current Visit: Yes Status: Acute Plan to address problem: A right hemithorax density with convex medial margin is stable since the prior study and most likely represents a loculated pleural effusion. Ultrasound evaluation is recommended. Obtaining ultrasound of chest. (3) Shortness of breath Current Visit: Yes Status: Acute Plan to address problem: O2 2 litres via nasal canula. Albuterol inhaler HFA 2 puffs po qid prn for shortness of breath. (4) ESRD (end stage renal disease) Current Visit: Yes Status: Acute Plan to address problem: Management as per nephrology (5) CHF (congestive heart failure) Current Visit: Yes Status: Acute Plan to address problem: Management as per primary care and cardiology. (6) HTN (hypertension) Current Visit: Yes Status: Acute Plan to address problem: Management as per primary care. (7) Obesity (BMI 30-39.9) Current Visit: Yes Status: Acute Plan to address problem: Recommend to loose weight. Diet and exercise. Continue S/C Heparin. If patient has sleep problems. Recommend sleep study as out patient. Subjective Date of service: 01/08/19 Principal diagnosis: esrd Interval history: Patient resting on room air. No acute respiratory distress. Patient has cardiac cath to day. Ultrasound of chest not done yet. ABG on room air. POC ABG pH 7.430 (7.35-7.45) 01/08/19 12:17 POC ABG pCO2 46.3 (35-45) H 01/08/19 12:17 POC ABG pO2 78 (80-105) L 01/08/19 12:17 POC ABG HCO3 30.7 (22-26 mml/L) 01/08/19 12:17 POC ABG Total CO2 32 (23-27mmol/L) 01/08/19 12:17 POC ABG O2 Sat 96 01/08/19 12:17 Objective Vital Signs - 12hr 01/08/19 01/08/19 01/08/19 07:00 12:40 13:00 Temperature 97.4 F L 97.4 F L Pulse Rate 60 71 64 Respiratory 16 16 Rate Blood Pressure 166/82 149/78 Blood Pressure 166/76 [Right] O2 Sat by Pulse 96 Oximetry 01/08/19 01/08/19 01/08/19 13:30 14:00 14:30 Temperature Pulse Rate 65 69 79 Respiratory Rate Blood Pressure 108/57 104/56 97/54 Blood Pressure [Right] O2 Sat by Pulse Oximetry 01/08/19 01/08/19 01/08/19 15:00 15:15 15:30 Temperature Pulse Rate 77 78 76 Respiratory Rate Blood Pressure 99/61 102/64 90/54 Blood Pressure [Right] O2 Sat by Pulse Oximetry 01/08/19 01/08/19 01/08/19 15:35 15:45 16:00 Temperature Pulse Rate 76 76 73 Respiratory Rate Blood Pressure 116/61 107/61 109/64 Blood Pressure [Right] O2 Sat by Pulse Oximetry 01/08/19 01/08/19 16:15 16:30 Temperature Pulse Rate 70 72 Respiratory Rate Blood Pressure 112/64 127/67 Blood Pressure [Right] O2 Sat by Pulse Oximetry Constitutional: no acute distress, alert Eyes: non-icteric ENT: oropharynx moist Neck: supple, no JVD Ascultation: Bilateral: diminished breath sounds Cardiovascular: regular rate and rhythm Gastrointestinal: normoactive bowel sounds, soft, non-tender Integumentary: normal Extremities: no cyanosis, no edema Neurologic: normal mental status, non-focal exam, pupils equal and round, CN II- XII normal Psychiatric: mood appropriate CBC and BMP: 01/07/19 05:26 01/08/19 04:58 ABG, PT/INR, D-dimer: ABG POC ABG pH 7.430 (7.35-7.45) 01/08/19 12:17 POC ABG pCO2 46.3 (35-45) H 01/08/19 12:17 POC ABG pO2 78 (80-105) L 01/08/19 12:17 POC ABG HCO3 30.7 (22-26 mml/L) 01/08/19 12:17 POC ABG Total CO2 32 (23-27mmol/L) 01/08/19 12:17 POC ABG O2 Sat 96 01/08/19 12:17 PT/INR, D-dimer PT 13.1 Sec. (12.2-14.9) 01/08/19 04:58 INR 1.02 (0.87-1.13) 01/08/19 04:58 767.68 ng/mlDDU (0-234) H 01/06/19 17:48 Abnormal lab findings: Abnormal Labs 01/06/19 01/06/19 01/06/19 17:48 17:48 17:48 RDW 18.2 H [place] % (Auto) 10.0 H Lymph # 0.9 L Seg Neutrophils % 72.3 H D-Dimer 767.68 H POC ABG pCO2 POC ABG pO2 Chloride 94.5 L Carbon Dioxide 31 H BUN 21 H Creatinine 5.2 H POC Glucose Cholesterol HDL Cholesterol 01/06/19 01/06/19 01/07/19 20:00 20:00 05:26 RDW 18.8 H [place] % (Auto) 10.6 H Lymph # Seg Neutrophils % D-Dimer POC ABG pCO2 POC ABG pO2 Chloride 93.7 L Carbon Dioxide BUN 23 H Creatinine 5.5 H POC Glucose Cholesterol 201 H HDL Cholesterol 75 H 01/07/19 01/07/19 01/07/19 05:26 16:30 21:02 RDW [place] % (Auto) Lymph # Seg Neutrophils % D-Dimer POC ABG pCO2 POC ABG pO2 Chloride 94.7 L Carbon Dioxide 32 H D BUN 29 H Creatinine 6.7 H POC Glucose 116 H 122 H Cholesterol HDL Cholesterol 01/08/19 01/08/19 04:58 12:17 RDW [place] % (Auto) Lymph # Seg Neutrophils % D-Dimer POC ABG pCO2 46.3 H POC ABG pO2 78 L Chloride 92.8 L Carbon Dioxide BUN 44 H Creatinine 8.7 H POC Glucose Cholesterol HDL Cholesterol
[2019-01-08] MEDS ORDERED: NACL 0.9 (PRIMING MACHINE ONLY DIALYSIS) MC ONE (18:56)
[2019-01-09] MEDS: APRESOLINE IV PRN (05:04)
--- NOTE | 2019-01-09 10:30 | Progress Note ---
Assessment and Plan - Patient Problems (1) ESRD (end stage renal disease) Current Visit: Yes Status: Acute Plan to address problem: End-stage renal disease has left arm AVF. Continue hemodialysis Sunday (2) Chest pain Current Visit: Yes Status: Acute Plan to address problem: Chest pain status post cardiac catheterization No significant CAD found Continue aspirin (3) HTN (hypertension) Current Visit: Yes Status: Acute Plan to address problem: Hypertension controlled continue medications (4) Obesity (BMI 30-39.9) Current Visit: Yes Status: Acute Plan to address problem: Morbid obesity Lifestyle changes (5) Pleural effusion, right Current Visit: Yes Status: Acute Plan to address problem: Consent for right-sided pleural effusion Chest ultrasound was obtained today follow-up results for possible thoracentesis Subjective Principal diagnosis: esrd Interval history: 73-year-old lady with hypertension, end-stage renal disease on hemodialysis Sunday admitted with complaints of chest pain nausea vomiting on dialysis patient had dialysis on Sunday feels well today. Has some nausea this morning status post cardiac catheterization yesterday Objective - Vital Signs Vital signs: Vital Signs - 12hr 01/08/19 01/09/19 01/09/19 23:44 00:40 04:27 Temperature 98.2 F Pulse Rate 79 72 66 Respiratory 18 Rate Blood Pressure 109/59 O2 Sat by Pulse 95 Oximetry 01/09/19 01/09/19 01/09/19 04:36 05:04 06:53 Temperature 98.4 F Pulse Rate 80 74 Respiratory 18 Rate Blood Pressure 181/82 181/82 128/92 O2 Sat by Pulse 100 Oximetry 01/09/19 01/09/19 07:47 08:57 Temperature 97.6 F Pulse Rate 60 Respiratory 18 Rate Blood Pressure 138/67 O2 Sat by Pulse Oximetry - General Appearance General appearance: well-developed, well-nourished EENT: ATNC, PERRL, mucous membranes moist Neck: no JVD Respiratory: Present: Clear to Ascultation Cardiology: regular, S1S2 Gastrointestinal: normal, normoactive bowel sounds Integumentary: no rash Neurologic: alert and oriented x3, CN 3-12 intact Psychiatric: mood/affect appropriate - Lab 01/07/19 05:26 01/08/19 04:58 Most recent lab results Calcium 9.1 mg/dL (8.4-10.2) 01/08/19 04:58 - Imaging Chest x-ray: image reviewed (I reviewed chest x-ray with concern for right-sided pleural effusion) Medications & Allergies - Medications Allergies/Adverse Reactions: Allergies No Known Allergies Allergy (Verified 03/08/18 12:44) Home Medications: Home Medications Medication Instructions Recorded Confirmed Last Taken Type Omeprazole 40 mg PO DAILY 03/08/18 01/06/19 03/12/18 07:45 History Pravastatin Sodium [Pravastatin] 10 mg PO QHS 03/08/18 01/06/19 03/11/18 History amLODIPine [Norvasc] 10 mg PO DAILY 03/08/18 01/06/19 03/12/18 07:45 History cloNIDine [Catapres] 0.1 mg PO TID 03/08/18 01/06/19 03/12/18 07:45 History hydrALAZINE [Apresoline TAB] 100 mg PO TID 03/08/18 01/06/19 03/12/18 07:45 History HYDROcodone/APAP 7.5-325 [[place] 1 each PO Q6HR PRN #40 tablet 03/12/18 01/06/19 Unknown Rx 7.5/325] Acetaminophen 500 mg PO Q8H PRN #20 tablet 06/09/18 01/06/19 Unknown Rx Cyclobenzaprine [Flexeril] 10 mg PO QHS PRN #10 tablet 06/09/18 01/06/19 Unknown Rx Active Medications: Generic Name Dose Route Start Last Admin Trade Name Freq PRN Reason Stop Dose Admin Acetaminophen 650 mg 01/06/19 21:24 Tylenol PO Q4H PRN Pain MILD(1-3)/Fever >100.5/VILLALBA Acetaminophen/Hydrocodone Bitart 1 each 01/08/19 10:17 [place] 5/325 PO Q4H PRN Pain, Moderate (4-6) Albumin Human 25 gm 01/07/19 12:22 Alburx 25% (Albumin) IV SHIELA PRN Hypotension Albuterol 2.5 mg 01/06/19 22:14 Proventil IH Q4HRT PRN Shortness Of Breath Amlodipine Besylate 10 mg 01/07/19 10:00 01/08/19 14:01 Norvasc PO Not Given DAILY LORRIE Aspirin 81 mg 01/07/19 10:00 01/08/19 10:52 Baby Aspirin PO 81 mg QDAY LORRIE Administration Atorvastatin Calcium 40 mg 01/06/19 22:00 01/08/19 21:26 Lipitor PO 40 mg QHS LORRIE Administration Clonidine HCl 0.1 mg 01/07/19 08:00 01/08/19 20:19 Catapres PO 0.1 mg TID LORRIE Administration Heparin Sodium (Porcine) 5,000 unit 01/06/19 22:00 01/08/19 21:26 Heparin SUB-Q 5,000 unit Q12HR LORRIE Administration Hydralazine HCl 100 mg 01/07/19 08:00 01/08/19 20:19 Apresoline PO 100 mg TID LORRIE Administration Hydralazine HCl 10 mg 01/06/19 22:06 01/09/19 05:04 Apresoline IV 10 mg Q4H PRN Administration Blood Pressure Sodium Chloride 100 mls @ 999 mls/hr 01/07/19 12:22 Nacl 0.9% IV SHIELA PRN Hypotension Nitroglycerin 0.4 mg 01/06/19 21:24 Nitrostat SL Q5M PRN Chest Pain Ondansetron HCl 4 mg 01/06/19 21:24 Zofran IV Q8H PRN Nausea And Vomiting Oxycodone/Acetaminophen 1 tab 01/06/19 21:31 Percocet 5/325 PO Q6H PRN Pain, Moderate (4-6) Pantoprazole Sodium 40 mg 01/07/19 10:00 01/08/19 10:52 Protonix PO 40 mg DAILY LORRIE Administration Sodium Chloride 10 ml 01/06/19 22:00 01/08/19 21:29 Sodium Chloride Flush Syringe 10 Ml IV 10 ml BID LORRIE Administration Sodium Chloride 10 ml 01/06/19 21:24 01/09/19 05:08 Sodium Chloride Flush Syringe 10 Ml IV 10 ml PRN PRN Administration LINE FLUSH Tramadol HCl 50 mg 01/08/19 10:17 Ultram PO Q4H PRN Pain, Mild (1-3)
[2019-01-09] MEDS: PROTONIX PO SCH (11:03)
[2019-01-09] MEDS: NORVASC PO SCH (11:03)
[2019-01-09] MEDS: APRESOLINE PO SCH ×3 (11:03→20:57)
[2019-01-09] MEDS: BABY ASPIRIN PO SCH (11:03)
[2019-01-09] MEDS: CATAPRES PO SCH ×3 (11:03→20:57)
[2019-01-09] MEDS: SODIUM CHLORIDE FLUSH SYRINGE 10 ML IV SCH ×2 (11:05→21:00)
[2019-01-09] MEDS: HEPARIN SUB-Q SCH ×2 (11:06→21:00)
--- NOTE | 2019-01-09 12:00 | Progress Note ---
Assessment and Plan Recurrent Chest pain low probability for PE via VQ scan. [facility] this admission reports no significant CAD, EF 50-55%. MPI 07/2018 documents no ischemia. ESRD on dialysis Hypertension Sleep apnea Conservative cardiac management. Subjective Date of service: 01/09/19 Principal diagnosis: esrd Interval history: Patient is resting in bed comfortably. She denies chest pain. Objective Vital Signs Temp Pulse Resp BP Pulse Ox 01/09/19 08:57 60 01/09/19 07:47 97.6 F 18 138/67 01/09/19 06:53 128/92 01/09/19 05:04 74 181/82 01/09/19 04:36 98.4 F 80 18 181/82 100 01/09/19 04:27 66 01/09/19 00:40 72 01/08/19 23:44 98.2 F 79 18 109/59 95 01/08/19 20:19 82 182/96 01/08/19 19:35 98.0 F 78 18 182/96 97 01/08/19 19:18 98.1 F 77 18 166/83 99 01/08/19 19:10 82 01/08/19 16:35 97.4 F L 72 20 123/65 01/08/19 16:30 72 127/67 01/08/19 16:15 70 112/64 01/08/19 16:00 73 109/64 01/08/19 15:45 76 107/61 01/08/19 15:35 76 116/61 01/08/19 15:30 76 90/54 01/08/19 15:15 78 102/64 01/08/19 15:00 77 99/61 01/08/19 14:30 79 97/54 01/08/19 14:00 69 104/56 01/08/19 13:30 65 108/57 01/08/19 13:00 64 149/78 01/08/19 12:40 97.4 F L 71 16 166/82 - Physical Examination General: No Apparent Distress HEENT: Positive: PERRL Cardiac: Positive: Reg Rate and Rhythm Lungs: Positive: Decreased Breath Sounds Neuro: Positive: Grossly Intact Extremities: Absent: edema
--- NOTE | 2019-01-09 17:31 | Progress Note ---
Assessment and Plan --Loculated right pleural effusion/? Right lung mass Follow chest ultrasound, if no evidence of pleural effusion, can be discharged wiht outpatietn follow up Continue VTE prophylaxis Supportive HD Outpatient evaluation for sleep apnea Supplemental oxygen , wean for O2 sats>90% Lifestyle modifications and weight loss CPAP qhs and prn while in patient Discussed with hospitalist service Updated patient at the bedside re care plan -Chest pain; status post heart cath today Normal coronaries, continue current management -End-stage renal disease; on hemodialysis HD per schedule, nephrology following -Hypertension; moderate control, continue current antihypertensives --Obesity; BMI 34.7, --Possible obstructive sleep apnea; Subjective Date of service: 01/09/19 Principal diagnosis: esrd Interval history: Patient is seen today for: dyspnea, loculated pleural effusion Seen and examined at bedside; 24hour events reviewed; nursing and respiratory care staff consulted; no adverse overnight events reported to me; resting peacefully in bed; awaiting placement; supplemental oxygen ; No N/V/F/C; denies chest pains or palpitations Objective Vital Signs - 12hr 01/09/19 01/09/19 01/09/19 06:53 07:47 08:57 Temperature 97.6 F Pulse Rate 60 Respiratory 18 Rate Blood Pressure 128/92 138/67 01/09/19 01/09/19 12:46 15:19 Temperature 97.5 F L Pulse Rate 72 Respiratory 18 Rate Blood Pressure 109/60 125/62 Constitutional: no acute distress, alert Eyes: non-icteric ENT: oropharynx moist Neck: supple, no JVD Ascultation: Bilateral: diminished breath sounds Cardiovascular: regular rate and rhythm Gastrointestinal: normoactive bowel sounds, soft, non-tender Integumentary: normal Extremities: no cyanosis, no edema Neurologic: normal mental status, non-focal exam, pupils equal and round, CN II- XII normal Psychiatric: mood appropriate CBC and BMP: 01/07/19 05:26 01/08/19 04:58 ABG, PT/INR, D-dimer: ABG POC ABG pH 7.430 (7.35-7.45) 01/08/19 12:17 POC ABG pCO2 46.3 (35-45) H 01/08/19 12:17 POC ABG pO2 78 (80-105) L 01/08/19 12:17 POC ABG HCO3 30.7 (22-26 mml/L) 01/08/19 12:17 POC ABG Total CO2 32 (23-27mmol/L) 01/08/19 12:17 POC ABG O2 Sat 96 01/08/19 12:17 PT/INR, D-dimer PT 13.1 Sec. (12.2-14.9) 01/08/19 04:58 INR 1.02 (0.87-1.13) 01/08/19 04:58 767.68 ng/mlDDU (0-234) H 01/06/19 17:48 Abnormal lab findings: Abnormal Labs 01/06/19 01/06/19 01/06/19 17:48 17:48 17:48 RDW 18.2 H Lyman % (Auto) 10.0 H Lymph # 0.9 L Seg Neutrophils % 72.3 H D-Dimer 767.68 H POC ABG pCO2 POC ABG pO2 Chloride 94.5 L Carbon Dioxide 31 H BUN 21 H Creatinine 5.2 H POC Glucose Cholesterol HDL Cholesterol 01/06/19 01/06/19 01/07/19 20:00 20:00 05:26 RDW 18.8 H Lyman % (Auto) 10.6 H Lymph # Seg Neutrophils % D-Dimer POC ABG pCO2 POC ABG pO2 Chloride 93.7 L Carbon Dioxide BUN 23 H Creatinine 5.5 H POC Glucose Cholesterol 201 H HDL Cholesterol 75 H 01/07/19 01/07/19 01/07/19 05:26 16:30 21:02 RDW Lyman % (Auto) Lymph # Seg Neutrophils % D-Dimer POC ABG pCO2 POC ABG pO2 Chloride 94.7 L Carbon Dioxide 32 H D BUN 29 H Creatinine 6.7 H POC Glucose 116 H 122 H Cholesterol HDL Cholesterol 01/08/19 01/08/19 04:58 12:17 RDW Lyman % (Auto) Lymph # Seg Neutrophils % D-Dimer POC ABG pCO2 46.3 H POC ABG pO2 78 L Chloride 92.8 L Carbon Dioxide BUN 44 H Creatinine 8.7 H POC Glucose Cholesterol HDL Cholesterol
--- NOTE | 2019-01-09 18:07 | Progress Note ---
Assessment and Plan Assessment and plan: 73-year-old -Ivorian female with history of ESRD on HD M/W/F, hypertension, GERD, arthritis, gout, questionable CHF who presents to [facility] ED with complaints of shortness of breath with activity and epigastric chest pain with radiation to neck. Patient states that she had a stress test done in Ap ril of this year at [facility] in [facility]. At which time she was told that she has a heart blockage. She denies any further cardiac workup or treatment. She has an established call center nurse here in [place], Dr. Mahmood. Her primary care physician is Dr. Martinez. --Chest pain; status post heart cath today Normal coronaries, continue current management Post heart cath hemodialysis --Loculated right pleural effusion/? Right lung mass Continue current management, pulmonary consulted Follow chest ultrasound --End-stage renal disease; on hemodialysis HD per schedule, nephrology following --Hypertension; moderate control, continue current antihypertensives When necessary medications --Obesity; BMI 34.7, Advised weight reduction when medically stable --Possible obstructive sleep apnea; CPAP at night, patient needs outpatient sleep study If not done already --DVT prophylaxis; heparin and renal dose --Full CODE STATUS Monitor closely and adjust the management as needed Discussed with Pulm Dr Pena Follow-up ultrasound report, possible discharge tomorrow if stable Plan of care is reviewed with the patient and her nurse History Interval history: Patient seen and examined medical records reviewed Patient feels better Chest ultrasound, pending report Denies chest pain or shortness of breath Vital signs noted Hospitalist Physical - Constitutional Vitals: Temp Pulse Resp BP Pulse Ox 97.5 F L 72 18 125/62 100 01/09/19 12:46 01/09/19 15:19 01/09/19 12:46 01/09/19 15:19 01/09/19 04:36 General appearance: Present: no acute distress, well-nourished, obese - EENT Eyes: Present: PERRL, EOM intact - Neck Neck: Present: supple, normal ROM - Respiratory Respiratory effort: normal Respiratory: bilateral: diminished, rales, negative: rhonchi, wheezing - Cardiovascular Rhythm: regular Heart Sounds: Present: S1 & S2 - Extremities Extremities: no ischemia, No edema - Abdominal General gastrointestinal: soft, non-tender, non-distended, normal bowel sounds - Integumentary Integumentary: Present: clear, warm - Psychiatric Psychiatric: appropriate mood/affect, cooperative - Neurologic Neurologic: CNII-XII intact, moves all extremities Results - Labs CBC & Chem 7: 01/07/19 05:26 01/08/19 04:58 Labs: Laboratory Last Values WBC 6.8 K/mm3 (4.5-11.0) 01/07/19 05:26 RBC 3.78 M/mm3 (3.65-5.03) 01/07/19 05:26 Hgb 11.1 gm/dl (10.1-14.3) 01/07/19 05:26 Hct 34.1 % (30.3-42.9) 01/07/19 05:26 MCV 90 fl (79-97) 01/07/19 05:26 MCH 29 pg (28-32) 01/07/19 05:26 MCHC 33 % (30-34) 01/07/19 05:26 RDW 18.8 % (13.2-15.2) H 01/07/19 05:26 Plt Count 167 K/mm3 (140-440) 01/07/19 05:26 Lymph % (Auto) 27.2 % (13.4-35.0) 01/07/19 05:26 Petroleum % (Auto) 10.6 % (0.0-7.3) H 01/07/19 05:26 Eos % (Auto) 1.7 % (0.0-4.3) 01/07/19 05:26 Baso % (Auto) 0.7 % (0.0-1.8) 01/07/19 05:26 Lymph # 1.9 K/mm3 (1.2-5.4) 01/07/19 05:26 Petroleum # 0.7 K/mm3 (0.0-0.8) 01/07/19 05:26 Eos # 0.1 K/mm3 (0.0-0.4) 01/07/19 05:26 Baso # 0.0 K/mm3 (0.0-0.1) 01/07/19 05:26 Seg Neutrophils % 59.8 % (40.0-70.0) 01/07/19 05:26 Seg Neutrophils # 4.1 K/mm3 (1.8-7.7) 01/07/19 05:26 PT 13.1 Sec. (12.2-14.9) 01/08/19 04:58 INR 1.02 (0.87-1.13) 01/08/19 04:58 APTT 29.7 Sec. (24.2-36.6) 01/06/19 17:48 767.68 ng/mlDDU (0-234) H 01/06/19 17:48 POC ABG pH 7.430 (7.35-7.45) 01/08/19 12:17 POC ABG pCO2 46.3 (35-45) H 01/08/19 12:17 POC ABG pO2 78 (80-105) L 01/08/19 12:17 POC ABG HCO3 30.7 (22-26 mml/L) 01/08/19 12:17 POC ABG Total CO2 32 (23-27mmol/L) 01/08/19 12:17 POC ABG O2 Sat 96 01/08/19 12:17 POC ABG Base Excess 6 ((-2) - (+3)mmol/L) 01/08/19 12:17 21 % 01/08/19 12:17 Sodium 139 mmol/L (137-145) 01/08/19 04:58 Potassium 4.2 mmol/L (3.6-5.0) 01/08/19 04:58 Chloride 92.8 mmol/L (98-107) L 01/08/19 04:58 Carbon Dioxide 29 mmol/L (22-30) 01/08/19 04:58 21 mmol/L 01/08/19 04:58 BUN 44 mg/dL (7-17) H 01/08/19 04:58 8.7 mg/dL (0.7-1.2) H 01/08/19 04:58 Estimated GFR 5 ml/min 01/08/19 04:58 5 % 01/08/19 04:58 Glucose 95 mg/dL (65-100) 01/08/19 04:58 POC Glucose 75 (70-105) 01/08/19 10:56 Calcium 9.1 mg/dL (8.4-10.2) 01/08/19 04:58 0.40 mg/dL (0.1-1.2) 01/06/19 17:48 AST 18 units/L (5-40) 01/06/19 17:48 ALT 9 units/L (7-56) 01/06/19 17:48 104 units/L (35-129) 01/06/19 17:48 < 0.010 ng/mL (0.00-0.029) 01/06/19 20:00 8.0 g/dL (6.3-8.2) 01/06/19 17:48 4.1 g/dL (3.9-5) 01/06/19 17:48 1.1 % 01/06/19 17:48 Triglycerides 91 mg/dL (2-149) 01/06/19 20:00 Cholesterol 201 mg/dL (50-199) H 01/06/19 20:00 115 mg/dL (50-130) 01/06/19 20:00 75 mg/dL (40-59) H 01/06/19 20:00 2.68 % 01/06/19 20:00 23 units/L (13-60) 01/06/19 17:48 Hepatitis A IgM Ab Non-reactive (NonReactive) 01/07/19 21:48 Hep Bs Antigen Non-reactive (Negative) 01/07/19 21:48 Hep B Core IgM Ab Non-reactive (NonReactive) 01/07/19 21:48 Non-reactive (NonReactive) 01/07/19 21:48 Active Medications - Current Medications Current Medications: Generic Name Dose Route Start Last Admin Trade Name Freq PRN Reason Stop Dose Admin Acetaminophen 650 mg 01/06/19 21:24 Tylenol PO Q4H PRN Pain MILD(1-3)/Fever >100.5/VILLALBA Acetaminophen/Hydrocodone Bitart 1 each 01/08/19 10:17 [place] 5/325 PO Q4H PRN Pain, Moderate (4-6) Albumin Human 25 gm 01/07/19 12:22 Alburx 25% (Albumin) IV SHIELA PRN Hypotension Albuterol 2.5 mg 01/06/19 22:14 Proventil IH Q4HRT PRN Shortness Of Breath Amlodipine Besylate 10 mg 01/07/19 10:00 01/09/19 11:03 Norvasc PO 10 mg DAILY LORRIE Administration Aspirin 81 mg 01/07/19 10:00 01/09/19 11:03 Baby Aspirin PO 81 mg QDAY LORRIE Administration Atorvastatin Calcium 40 mg 01/06/19 22:00 01/08/19 21:26 Lipitor PO 40 mg QHS LORRIE Administration Clonidine HCl 0.1 mg 01/07/19 08:00 01/09/19 15:19 Catapres PO 0.1 mg TID LORRIE Administration Heparin Sodium (Porcine) 5,000 unit 01/06/19 22:00 01/09/19 11:06 Heparin SUB-Q 5,000 unit Q12HR LORRIE Administration Hydralazine HCl 100 mg 01/07/19 08:00 01/09/19 15:19 Apresoline PO 100 mg TID LORRIE Administration Hydralazine HCl 10 mg 01/06/19 22:06 01/09/19 05:04 Apresoline IV 10 mg Q4H PRN Administration Blood Pressure Sodium Chloride 100 mls @ 999 mls/hr 01/07/19 12:22 Nacl 0.9% IV SHIELA PRN Hypotension Nitroglycerin 0.4 mg 01/06/19 21:24 Nitrostat SL Q5M PRN Chest Pain Ondansetron HCl 4 mg 01/06/19 21:24 Zofran IV Q8H PRN Nausea And Vomiting Oxycodone/Acetaminophen 1 tab 01/06/19 21:31 Percocet 5/325 PO Q6H PRN Pain, Moderate (4-6) Pantoprazole Sodium 40 mg 01/07/19 10:00 01/09/19 11:03 Protonix PO 40 mg DAILY LORRIE Administration Sodium Chloride 10 ml 01/06/19 22:00 01/09/19 11:05 Sodium Chloride Flush Syringe 10 Ml IV 10 ml BID LORRIE Administration Sodium Chloride 10 ml 01/06/19 21:24 01/09/19 05:08 Sodium Chloride Flush Syringe 10 Ml IV 10 ml PRN PRN Administration LINE FLUSH Tramadol HCl 50 mg 01/08/19 10:17 Ultram PO Q4H PRN Pain, Mild (1-3)
--- NOTE | 2019-01-09 22:02 | Ultrasound Report ---
PROCEDURE: US CHEST TECHNIQUE: Real-time sonography in multiple planes of the chest was performed with image documentati on. HISTORY: Loculated right pleural effusion. COMPARISONS: None . FINDINGS: RIGHT chest: No pleural effusion. LEFT chest: No pleural effusion. IMPRESSION: No evidence of free or loculated pleural effusion CT scan of the chest is recommended to evaluate the right hemithorax abnormality seen on the chest ra diograph.. This document is electronically signed by Jose Jewell MD., January 09 2019 10:00:06 PM ET
[2019-01-10] MEDS: APRESOLINE PO SCH ×3 (08:16→21:25)
[2019-01-10] MEDS: CATAPRES PO SCH ×3 (08:16→21:30)
[2019-01-10] MEDS: NORVASC PO SCH (09:14)
[2019-01-10] MEDS: BABY ASPIRIN PO SCH (09:14)
[2019-01-10] MEDS: PROTONIX PO SCH (09:14)
[2019-01-10] MEDS: HEPARIN SUB-Q SCH ×2 (09:14→22:17)
[2019-01-10] MEDS: SODIUM CHLORIDE FLUSH SYRINGE 10 ML IV SCH ×2 (09:15→22:17)
--- NOTE | 2019-01-10 10:36 | Progress Note ---
Assessment and Plan --Loculated right pleural effusion/? Right lung mass Continue VTE prophylaxis Supportive HD Outpatient evaluation for sleep apnea Supplemental oxygen , wean for O2 sats>90% Lifestyle modifications and weight loss CPAP qhs and prn while in patient Discussed with hospitalist service Updated patient at the bedside re care plan Await CTchest prior to discharge re right lung mass -Chest pain; status post heart cath today Normal coronaries, continue current management -End-stage renal disease; on hemodialysis HD per schedule, nephrology following -Hypertension; moderate control, continue current antihypertensives --Obesity; BMI 34.7, --Possible obstructive sleep apnea Subjective Date of service: 01/10/19 Principal diagnosis: esrd Interval history: Patient is seen today for: dyspnea, loculated pleural effusion Seen and examined at bedside; 24hour events reviewed; nursing and respiratory care staff consulted; no adverse overnight events reported to me; resting peacefully in bed; awaiting placement; supplemental oxygen ; No N/V/F/C; denies chest pains or palpitations s/p cardiac cath with normal coronaries. USS of the chest does not show fluid but there is a mass. Non contrast CT chest ordered Objective Vital Signs - 12hr 01/09/19 01/10/19 01/10/19 23:35 00:00 04:00 Temperature 98.1 F Pulse Rate 76 68 67 Respiratory 18 Rate Blood Pressure 125/66 O2 Sat by Pulse 97 Oximetry 01/10/19 01/10/19 01/10/19 04:49 07:54 08:45 Temperature 98.4 F 98.0 F 98.0 F Pulse Rate 67 79 61 Respiratory 18 18 18 Rate Blood Pressure 108/53 118/62 119/56 O2 Sat by Pulse 97 97 Oximetry 01/10/19 01/10/19 01/10/19 09:00 09:15 09:30 Temperature Pulse Rate 64 69 66 Respiratory Rate Blood Pressure 107/63 110/64 103/62 O2 Sat by Pulse Oximetry 01/10/19 09:45 Temperature Pulse Rate 68 Respiratory Rate Blood Pressure 115/61 O2 Sat by Pulse Oximetry Constitutional: no acute distress, alert Eyes: non-icteric ENT: oropharynx moist Neck: supple, no JVD Effort: normal Ascultation: Bilateral: diminished breath sounds Cardiovascular: regular rate and rhythm Gastrointestinal: normoactive bowel sounds, soft, non-tender Integumentary: normal Extremities: no cyanosis, no edema Neurologic: normal mental status, non-focal exam, pupils equal and round, CN II- XII normal Psychiatric: mood appropriate CBC and BMP: 01/07/19 05:26 01/08/19 04:58 ABG, PT/INR, D-dimer: ABG POC ABG pH 7.430 (7.35-7.45) 01/08/19 12:17 POC ABG pCO2 46.3 (35-45) H 01/08/19 12:17 POC ABG pO2 78 (80-105) L 01/08/19 12:17 POC ABG HCO3 30.7 (22-26 mml/L) 01/08/19 12:17 POC ABG Total CO2 32 (23-27mmol/L) 01/08/19 12:17 POC ABG O2 Sat 96 01/08/19 12:17 PT/INR, D-dimer PT 13.1 Sec. (12.2-14.9) 01/08/19 04:58 INR 1.02 (0.87-1.13) 01/08/19 04:58 767.68 ng/mlDDU (0-234) H 01/06/19 17:48 Abnormal lab findings: Abnormal Labs 01/06/19 01/06/19 01/06/19 17:48 17:48 17:48 RDW 18.2 H Holmes % (Auto) 10.0 H Lymph # 0.9 L Seg Neutrophils % 72.3 H D-Dimer 767.68 H POC ABG pCO2 POC ABG pO2 Chloride 94.5 L Carbon Dioxide 31 H BUN 21 H Creatinine 5.2 H POC Glucose Cholesterol HDL Cholesterol 01/06/19 01/06/19 01/07/19 20:00 20:00 05:26 RDW 18.8 H Holmes % (Auto) 10.6 H Lymph # Seg Neutrophils % D-Dimer POC ABG pCO2 POC ABG pO2 Chloride 93.7 L Carbon Dioxide BUN 23 H Creatinine 5.5 H POC Glucose Cholesterol 201 H HDL Cholesterol 75 H 01/07/19 01/07/19 01/07/19 05:26 16:30 21:02 RDW Holmes % (Auto) Lymph # Seg Neutrophils % D-Dimer POC ABG pCO2 POC ABG pO2 Chloride 94.7 L Carbon Dioxide 32 H D BUN 29 H Creatinine 6.7 H POC Glucose 116 H 122 H Cholesterol HDL Cholesterol 01/08/19 01/08/19 04:58 12:17 RDW Holmes % (Auto) Lymph # Seg Neutrophils % D-Dimer POC ABG pCO2 46.3 H POC ABG pO2 78 L Chloride 92.8 L Carbon Dioxide BUN 44 H Creatinine 8.7 H POC Glucose Cholesterol HDL Cholesterol
--- NOTE | 2019-01-10 11:57 | Progress Note ---
Subjective Principal diagnosis: esrd Interval history: Patient was seen today for follow-up on multiple renal related issues Events of this hospitalization noted Patient denies having any chest pain pressure or shortness of breath Vitals labs intake output medications were reviewed Social history: Reviewed Allergies: Reviewed Family history: Reviewed Physical examination HEENT: Oral mucosa moist no pallor or icterus Neck: Supple no JVD Chest: Clear to auscultation anteriorly CVS: Regular rate and rhythm S1 and S2 heard Abdomen: Soft nontender no suprapubic masses no organomegaly appreciable Extremity: Dry skin less than 1+ peripheral edema Musculoskeletal: No joint effusion noted in knees and ankle Neurological: Alert awake Dermatology: No petechial rashes Psychiatry: No evidence of any agitation and aggression noted Assessment and plan; End-stage renal disease: Patient will continue with hemodialysis on Sunday and Sunday schedule current access is his fistula in the left arm Adequately counseled and educated regarding dialysis care, diet plan was also discussed with patient Chest pain status post cardiac catheterization no significant finding, Anemia in end-stage renal disease: Monitor hemoglobin and hematocrit, erythropoietin as needed Secondary hyperparathyroidism periodically check phosphorus and PTH level, goal phosphorus less than 5.5 PTH less than 600, educated about renal osteodystrophy Hypertension and volume: , Adjust medications as needed, ultrafiltration as tolerated keep systolic blood pressure above 100 Malnutrition risk: High please consider high protein diet as well as nutrition follow-up, patient needs at least 1.5 g protein per KG body weight Dialysis access: Currently working well, discussed about monitoring Dietary counseling and education: Done at length to improve outcome with end- stage renal disease Patient was also educated about the hospital related comorbidities Overall prognosis appears to be guarded due to end-stage renal disease, dialysis status and other comorbidities Patient was adequately counseled and educated regarding multiple renal related issues Pertinent lab findings were discussed with patient and patient does exhibit good understanding of renal issues. We'll continue to follow and make recommendation from renal standpoint Objective - Vital Signs Vital signs: Vital Signs - 12hr 01/10/19 01/10/19 01/10/19 00:00 04:00 04:49 Temperature 98.4 F Pulse Rate 68 67 67 Respiratory 18 Rate Blood Pressure 108/53 O2 Sat by Pulse 97 Oximetry 01/10/19 01/10/19 01/10/19 07:54 08:45 09:00 Temperature 98.0 F 98.0 F Pulse Rate 79 61 64 Respiratory 18 18 Rate Blood Pressure 118/62 119/56 107/63 O2 Sat by Pulse 97 Oximetry 01/10/19 01/10/19 01/10/19 09:15 09:30 09:45 Temperature Pulse Rate 69 66 68 Respiratory Rate Blood Pressure 110/64 103/62 115/61 O2 Sat by Pulse Oximetry - Lab 01/07/19 05:26 01/08/19 04:58 Most recent lab results Calcium 9.1 mg/dL (8.4-10.2) 01/08/19 04:58 Medications & Allergies - Medications Allergies/Adverse Reactions: Allergies No Known Allergies Allergy (Verified 03/08/18 12:44) Home Medications: Home Medications Medication Instructions Recorded Confirmed Last Taken Type Omeprazole 40 mg PO DAILY 03/08/18 01/06/19 03/12/18 07:45 History Pravastatin Sodium [Pravastatin] 10 mg PO QHS 03/08/18 01/06/19 03/11/18 History amLODIPine [Norvasc] 10 mg PO DAILY 03/08/18 01/06/19 03/12/18 07:45 History cloNIDine [Catapres] 0.1 mg PO TID 03/08/18 01/06/19 03/12/18 07:45 History hydrALAZINE [Apresoline TAB] 100 mg PO TID 03/08/18 01/06/19 03/12/18 07:45 History HYDROcodone/APAP 7.5-325 [[place] 1 each PO Q6HR PRN #40 tablet 03/12/18 01/06/19 Unknown Rx 7.5/325] Acetaminophen 500 mg PO Q8H PRN #20 tablet 06/09/18 01/06/19 Unknown Rx Cyclobenzaprine [Flexeril] 10 mg PO QHS PRN #10 tablet 06/09/18 01/06/19 Unknown Rx Active Medications: Generic Name Dose Route Start Last Admin Trade Name Freq PRN Reason Stop Dose Admin Acetaminophen 650 mg 01/06/19 21:24 Tylenol PO Q4H PRN Pain MILD(1-3)/Fever >100.5/VILLALBA Acetaminophen/Hydrocodone Bitart 1 each 01/08/19 10:17 [place] 5/325 PO Q4H PRN Pain, Moderate (4-6) Albumin Human 25 gm 01/07/19 12:22 Alburx 25% (Albumin) IV SHIELA PRN Hypotension Albuterol 2.5 mg 01/06/19 22:14 Proventil IH Q4HRT PRN Shortness Of Breath Amlodipine Besylate 10 mg 01/07/19 10:00 01/10/19 09:14 Norvasc PO Not Given DAILY [facility] Aspirin 81 mg 01/07/19 10:00 01/10/19 09:14 Baby Aspirin PO Not Given QDAY [facility] Atorvastatin Calcium 40 mg 01/06/19 22:00 01/09/19 20:59 Lipitor PO 40 mg QHS [facility] Administration Clonidine HCl 0.1 mg 01/07/19 08:00 01/10/19 08:16 Catapres PO Not Given TID [facility] Heparin Sodium (Porcine) 5,000 unit 01/06/19 22:00 01/10/19 09:14 Heparin SUB-Q Not Given Q12HR [facility] Hydralazine HCl 100 mg 01/07/19 08:00 01/10/19 08:16 Apresoline PO Not Given TID [facility] Hydralazine HCl 10 mg 01/06/19 22:06 01/09/19 05:04 Apresoline IV 10 mg Q4H PRN Administration Blood Pressure Sodium Chloride 100 mls @ 999 mls/hr 01/07/19 12:22 Nacl 0.9% IV SHIELA PRN Hypotension Nitroglycerin 0.4 mg 01/06/19 21:24 Nitrostat SL Q5M PRN Chest Pain Ondansetron HCl 4 mg 01/06/19 21:24 Zofran IV Q8H PRN Nausea And Vomiting Oxycodone/Acetaminophen 1 tab 01/06/19 21:31 Percocet 5/325 PO Q6H PRN Pain, Moderate (4-6) Pantoprazole Sodium 40 mg 01/07/19 10:00 01/10/19 09:14 Protonix PO Not Given DAILY [facility] Sodium Chloride 10 ml 01/06/19 22:00 01/10/19 09:15 Sodium Chloride Flush Syringe 10 Ml IV Not Given BID [facility] Sodium Chloride 10 ml 01/06/19 21:24 01/09/19 05:08 Sodium Chloride Flush Syringe 10 Ml IV 10 ml PRN PRN Administration LINE FLUSH Tramadol HCl 50 mg 01/08/19 10:17 Ultram PO Q4H PRN Pain, Mild (1-3)
[2019-01-10] MEDS ORDERED: NACL 0.9 (PRIMING MACHINE ONLY DIALYSIS) MC ONE (16:01)
--- NOTE | 2019-01-10 18:45 | Progress Note ---
Assessment and Plan Assessment and plan: 73-year-old -[place] female with history of ESRD on HD M/W/F, hypertension, GERD, arthritis, gout, questionable CHF who presents to [facility] ED with complaints of shortness of breath with activity and epigastric chest pain with radiation to neck. Patient states that she had a stress test done in Ap ril of this year at [facility] in [facility]. At which time she was told that she has a heart blockage. She denies any further cardiac workup or treatment. 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 Mahmood. Her primary care physician is Dr. Martinez. --Chest pain; status post heart cath today Normal coronaries, continue current management Post heart cath hemodialysis --Loculated right pleural effusion/? Right lung mass Continue current management, pulmonary consulted Follow-up CT chest today --End-stage renal disease; on hemodialysis HD per schedule, nephrology following --Hypertension; moderate control, continue current antihypertensives When necessary medications --Obesity; BMI 34.7, Advised weight reduction when medically stable --Possible obstructive sleep apnea; CPAP at night, patient needs outpatient sleep study If not done already --DVT prophylaxis; heparin and renal dose --Full CODE STATUS Monitor closely and adjust the management as needed Discussed with Pulandria Pena Follow-up ultrasound report, possible discharge tomorrow if stable Plan of care is reviewed with the patient and her nurse Follow CT chest report if no acute abnormalities May be discharged home this evening or tomorrow morning History Interval history: Patient seen and examined medical records reviewed Received hemodialysis today, scheduled for CT chest Patient is comfortable in no new complaints Vital signs noted Hospitalist Physical - Constitutional Vitals: Temp Pulse Resp BP Pulse Ox 98.0 F 65 18 116/63 96 01/10/19 12:47 01/10/19 16:08 01/10/19 12:47 01/10/19 16:08 01/10/19 16:08 General appearance: Present: no acute distress, well-nourished, obese - EENT Eyes: Present: PERRL, EOM intact - Neck Neck: Present: supple, normal ROM - Respiratory Respiratory effort: normal Respiratory: bilateral: diminished, negative: rales, rhonchi, wheezing - Cardiovascular Rhythm: regular Heart Sounds: Present: S1 & S2 - Extremities Extremities: no ischemia, No edema - Abdominal General gastrointestinal: soft, non-tender, non-distended, normal bowel sounds - Integumentary Integumentary: Present: clear, warm - Psychiatric Psychiatric: appropriate mood/affect, cooperative - Neurologic Neurologic: moves all extremities Results - Labs CBC & Chem 7: 01/07/19 05:26 01/08/19 04:58 Labs: Laboratory Last Values WBC 6.8 K/mm3 (4.5-11.0) 01/07/19 05:26 RBC 3.78 M/mm3 (3.65-5.03) 01/07/19 05:26 Hgb 11.1 gm/dl (10.1-14.3) 01/07/19 05:26 Hct 34.1 % (30.3-42.9) 01/07/19 05:26 MCV 90 fl (79-97) 01/07/19 05:26 MCH 29 pg (28-32) 01/07/19 05:26 MCHC 33 % (30-34) 01/07/19 05:26 RDW 18.8 % (13.2-15.2) H 01/07/19 05:26 Plt Count 167 K/mm3 (140-440) 01/07/19 05:26 Lymph % (Auto) 27.2 % (13.4-35.0) 01/07/19 05:26 [place] % (Auto) 10.6 % (0.0-7.3) H 01/07/19 05:26 Eos % (Auto) 1.7 % (0.0-4.3) 01/07/19 05:26 Baso % (Auto) 0.7 % (0.0-1.8) 01/07/19 05:26 Lymph # 1.9 K/mm3 (1.2-5.4) 01/07/19 05:26 Cambria # 0.7 K/mm3 (0.0-0.8) 01/07/19 05:26 Eos # 0.1 K/mm3 (0.0-0.4) 01/07/19 05:26 Baso # 0.0 K/mm3 (0.0-0.1) 01/07/19 05:26 Seg Neutrophils % 59.8 % (40.0-70.0) 01/07/19 05:26 Seg Neutrophils # 4.1 K/mm3 (1.8-7.7) 01/07/19 05:26 PT 13.1 Sec. (12.2-14.9) 01/08/19 04:58 INR 1.02 (0.87-1.13) 01/08/19 04:58 APTT 29.7 Sec. (24.2-36.6) 01/06/19 17:48 767.68 ng/mlDDU (0-234) H 01/06/19 17:48 POC ABG pH 7.430 (7.35-7.45) 01/08/19 12:17 POC ABG pCO2 46.3 (35-45) H 01/08/19 12:17 POC ABG pO2 78 (80-105) L 01/08/19 12:17 POC ABG HCO3 30.7 (22-26 mml/L) 01/08/19 12:17 POC ABG Total CO2 32 (23-27mmol/L) 01/08/19 12:17 POC ABG O2 Sat 96 01/08/19 12:17 POC ABG Base Excess 6 ((-2) - (+3)mmol/L) 01/08/19 12:17 21 % 01/08/19 12:17 Sodium 139 mmol/L (137-145) 01/08/19 04:58 Potassium 4.2 mmol/L (3.6-5.0) 01/08/19 04:58 Chloride 92.8 mmol/L (98-107) L 01/08/19 04:58 Carbon Dioxide 29 mmol/L (22-30) 01/08/19 04:58 21 mmol/L 01/08/19 04:58 BUN 44 mg/dL (7-17) H 01/08/19 04:58 8.7 mg/dL (0.7-1.2) H 01/08/19 04:58 Estimated GFR 5 ml/min 01/08/19 04:58 5 % 01/08/19 04:58 Glucose 95 mg/dL (65-100) 01/08/19 04:58 POC Glucose 75 (70-105) 01/08/19 10:56 Calcium 9.1 mg/dL (8.4-10.2) 01/08/19 04:58 Phosphorus 2.70 mg/dL (2.5-4.5) 01/10/19 13:08 0.40 mg/dL (0.1-1.2) 01/06/19 17:48 AST 18 units/L (5-40) 01/06/19 17:48 ALT 9 units/L (7-56) 01/06/19 17:48 104 units/L (35-129) 01/06/19 17:48 < 0.010 ng/mL (0.00-0.029) 01/06/19 20:00 8.0 g/dL (6.3-8.2) 01/06/19 17:48 4.1 g/dL (3.9-5) 01/06/19 17:48 1.1 % 01/06/19 17:48 Triglycerides 91 mg/dL (2-149) 01/06/19 20:00 Cholesterol 201 mg/dL (50-199) H 01/06/19 20:00 115 mg/dL (50-130) 01/06/19 20:00 75 mg/dL (40-59) H 01/06/19 20:00 2.68 % 01/06/19 20:00 23 units/L (13-60) 01/06/19 17:48 PTH Intact 623.2 pg/mL (15-65) H 01/10/19 13:08 Hepatitis A IgM Ab Non-reactive (NonReactive) 01/07/19 21:48 Hep Bs Antigen Non-reactive (Negative) 01/07/19 21:48 Hep B Core IgM Ab Non-reactive (NonReactive) 01/07/19 21:48 Non-reactive (NonReactive) 01/07/19 21:48 Active Medications - Current Medications Current Medications: Generic Name Dose Route Start Last Admin Trade Name Freq PRN Reason Stop Dose Admin Acetaminophen 650 mg 01/06/19 21:24 Tylenol PO Q4H PRN Pain MILD(1-3)/Fever >100.5/VILLALBA Acetaminophen/Hydrocodone Bitart 1 each 01/08/19 10:17 [place] 5/325 PO Q4H PRN Pain, Moderate (4-6) Albumin Human 25 gm 01/07/19 12:22 Alburx 25% (Albumin) IV SHIELA PRN Hypotension Albuterol 2.5 mg 06/17/19 22:14 Proventil IH Q4HRT PRN Shortness Of Breath Amlodipine Besylate 10 mg 01/07/19 10:00 01/10/19 09:14 Norvasc PO Not Given DAILY [facility] Aspirin 81 mg 01/07/19 10:00 01/10/19 09:14 Baby Aspirin PO Not Given QDAY [facility] Atorvastatin Calcium 40 mg 01/06/19 22:00 01/09/19 20:59 Lipitor PO 40 mg QHS [facility] Administration Clonidine HCl 0.1 mg 01/07/19 08:00 01/10/19 14:00 Catapres PO 0.1 mg TID LORRIE Administration Heparin Sodium (Porcine) 5,000 unit 01/06/19 22:00 01/10/19 09:14 Heparin SUB-Q Not Given Q12HR [facility] Hydralazine HCl 100 mg 01/07/19 08:00 01/10/19 14:00 Apresoline PO 100 mg TID LORRIE Administration Hydralazine HCl 10 mg 01/06/19 22:06 01/09/19 05:04 Apresoline IV 10 mg Q4H PRN Administration Blood Pressure Sodium Chloride 100 mls @ 999 mls/hr 01/07/19 12:22 Nacl 0.9% IV SHIELA PRN Hypotension Nitroglycerin 0.4 mg 01/06/19 21:24 Nitrostat SL Q5M PRN Chest Pain Ondansetron HCl 4 mg 01/06/19 21:24 Zofran IV Q8H PRN Nausea And Vomiting Oxycodone/Acetaminophen 1 tab 01/06/19 21:31 Percocet 5/325 PO Q6H PRN Pain, Moderate (4-6) Pantoprazole Sodium 40 mg 01/07/19 10:00 01/10/19 09:14 Protonix PO Not Given DAILY [facility] Sodium Chloride 10 ml 01/06/19 22:00 01/10/19 09:15 Sodium Chloride Flush Syringe 10 Ml IV Not Given BID LORRIE Sodium Chloride 10 ml 01/06/19 21:24 01/09/19 05:08 Sodium Chloride Flush Syringe 10 Ml IV 10 ml PRN PRN Administration LINE FLUSH Tramadol HCl 50 mg 01/08/19 10:17 Ultram PO Q4H PRN Pain, Mild (1-3)
--- NOTE | 2019-01-10 19:04 | Cat Scan Report ---
PROCEDURE: CT CHEST WO CON HISTORY: right lung lesion FINDINGS: Unenhanced CT of the chest was performed and data was reformatted in the sagittal and coronal planes. Comparison is made to the chest x-ray January 06 at which time a lesion is seen in the right hemithorax . The heart is mildly large. The density seen on chest x-ray corresponds to a subpleural lipoma of the lateral aspect of right hem ithorax, approximately 10.7 x 2.5 8.2 cm. There is no acute consolidative pulmonary infiltrate. There is no pleural or pericardial effusion. The ascending thoracic aorta is mildly dilated at 4.1 cm. In the upper abdomen the adrenal glands are within normal limits. Both kidneys appear small with multiple cysts which could representing chronic renal disease. There is high density material seen in the gallbladder, likely sludge. 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
[2019-01-11] MEDS: APRESOLINE PO SCH (08:18)
[2019-01-11] MEDS: CATAPRES PO SCH (08:56)
--- NOTE | 2019-01-11 09:00 | Discharge Summary ---
Providers - Providers Date of Admission: 01/07/19 15:28 Date of discharge: 01/11/19 Attending physician: ELVER JOSEPH 01/06/19 21:37 Consult to Physician [CONS] Routine Comment: Consulting Provider: BIN DAVIS Physician Instructions: Reason For Exam: ESRD on HD M/W/F hd mgmt 01/06/19 23:47 Consult to Physician [CONS] Routine Comment: possible loculated pleural effusion Consulting Provider: KIMBERLY CHAIDEZ Physician Instructions: Reason For Exam: rt hemithorax density with convex medial margin 01/07/19 08:48 Consult to Physician [CONS] Routine Comment: Consulting Provider: NAOMIE TRAN Physician Instructions: Reason For Exam: ESRD 01/08/19 10:17 Consult to Cardiac Rehabilitation [CONS] Routine Reason For Exam: Cardiac Rehab Evaluation Primary care physician: ARIC MARTINEZ Hospitalization Reason for admission: Epigastric and chest pain Condition: Stable Pertinent studies: CT chest; benign subpleural lipoma of the lateral margin of right hemithorax Chest ultrasound Cardiac catheterization Chest CT Procedures: Heart catheterization; no significant coronary artery disease in the right dominant system right coronary artery appears to the posterior takeoff Ejection fraction 50-55% Aortic root normal Recommend aggressive risk factor modification And medical management Hospital course: 73-year-old -Bangl[place] female with history of ESRD on HD M/W/F, hypertension, GERD, arthritis, gout, questionable CHF who presents to [facility] ED with complaints of shortness of breath with activity and epigastric chest pain with radiation to neck. Patient states that she had a stress test done in October of this year at [facility] in [facility]. At which time she was told that she has a heart blockage. She denies any further cardiac workup or treatment. 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 Mahmood. Her primary care physician is Dr. Martinez. Discharge Diagnosis: --Chest pain; status post heart cath today Normal coronaries, continue current management received Post heart cath hemodialysis --Loculated right pleural effusion/? Right lung mass Continue current management, pulmonary consulted Follow-up CT chest today --End-stage renal disease; on hemodialysis HD per schedule, nephrology following --Hypertension; moderate control, continue current antihypertensives When necessary medications --Obesity; BMI 34.7, Advised weight reduction when medically stable --Possible obstructive sleep apnea; CPAP at night, patient needs outpatient sleep study If not done already --DVT prophylaxis; heparin and renal dose --Full CODE STATUS Monitor closely and adjust the management as needed Discussed with Pulandria Pena Follow-up ultrasound report, possible discharge tomorrow if stable Plan of care is reviewed with the patient and her nurse Follow CT chest report if no acute abnormalities May be discharged home this evening or tomorrow morning Disposition: DC-01 TO HOME OR SELFCARE Time spent for discharge: 32 min Core Measure Documentation - Palliative Care Palliative Care/ Comfort Measures: Not Applicable - Core Measures Any of the following diagnoses?: none Exam - Constitutional Vitals: Temp Pulse Resp BP Pulse Ox 98.0 F 63 18 114/55 98 01/11/19 07:40 01/11/19 07:40 01/11/19 07:40 01/11/19 07:40 01/11/19 07:40 General appearance: Present: no acute distress, well-nourished - EENT Eyes: Present: PERRL, EOM intact - Neck Neck: Present: supple, normal ROM - Respiratory Respiratory effort: normal Respiratory: bilateral: diminished, negative: rales, rhonchi, wheezing - Cardiovascular Rhythm: regular Heart Sounds: Present: S1 & S2 - Extremities Extremities: no ischemia, No edema - Abdominal General gastrointestinal: Present: soft, non-tender, non-distended, normal bowel sounds - Integumentary Integumentary: Present: clear, warm - Musculoskeletal Musculoskeletal: strength equal bilaterally - Psychiatric Psychiatric: appropriate mood/affect, cooperative - Neurologic Neurologic: moves all extremities Plan Activity: advance as tolerated, fall precautions Diet: renal Additional Instructions: Renal/HD per schedule. Do not take your blood pressure medications if her blood procedures less than. 140/80, check with your primary care physician if you have any questions Follow up with: ARIC MARTINEZ MD [Primary Care Provider] - 3-5 Days RASHAD SELF MD [Staff Physician] - 7 Days
[2019-01-11] MEDS: BABY ASPIRIN PO SCH (09:47)
[2019-01-11] MEDS: PROTONIX PO SCH (09:47)
[2019-01-11] MEDS: SODIUM CHLORIDE FLUSH SYRINGE 10 ML IV SCH (09:47)
[2019-01-11] MEDS: HEPARIN SUB-Q SCH (09:49)
[2019-01-11] MEDS: NORVASC PO SCH (09:49)
[2019-01-11 09:51] VITALS: BP 119/46
--- NOTE | 2019-01-11 11:03 | Progress Note ---
Subjective Principal diagnosis: esrd Interval history: Patient was seen today for follow-up on multiple renal related issues Events of this hospitalization noted Being discharged today Tolerated dialysis treatment fairly well Patient denies having any chest pain pressure or shortness of breath Vitals labs intake output medications were reviewed Social history: Reviewed Allergies: Reviewed Family history: Reviewed Physical examination HEENT: Oral mucosa moist no pallor or icterus Neck: Supple no JVD Chest: Clear to auscultation anteriorly CVS: Regular rate and rhythm S1 and S2 heard Abdomen: Soft nontender no suprapubic masses no organomegaly appreciable Extremity: Dry skin less than 1+ peripheral edema Musculoskeletal: No joint effusion noted in knees and ankle Neurological: Alert awake Dermatology: No petechial rashes Psychiatry: No evidence of any agitation and aggression noted Assessment and plan; ESRD: Continue with dialysis Discussed about dialysis, plan lifestyle changes discussed about phosphorus PTH control, educated about blood pressure management, advised to follow-up with nephrology as well as primary care physician upon discharge Significance go for diet and lifestyle changes Access monitoring was discussed with patient Stable for discharge from renal standpoint Objective - Vital Signs Vital signs: Vital Signs - 12hr 01/11/19 01/11/19 01/11/19 02:56 07:40 08:56 Temperature 98.3 F 98.0 F Pulse Rate 69 63 63 Respiratory 18 18 Rate Blood Pressure 116/44 114/55 114/55 O2 Sat by Pulse 94 98 Oximetry 01/11/19 01/11/19 09:48 09:49 Temperature Pulse Rate 68 67 Respiratory Rate Blood Pressure 119/46 119/46 O2 Sat by Pulse 97 Oximetry - Lab 01/07/19 05:26 01/08/19 04:58 Most recent lab results Calcium 9.1 mg/dL (8.4-10.2) 01/08/19 04:58 Phosphorus 2.70 mg/dL (2.5-4.5) 01/10/19 13:08 Medications & Allergies - Medications Allergies/Adverse Reactions: Allergies No Known Allergies Allergy (Verified 03/08/18 12:44) Home Medications: Home Medications Medication Instructions Recorded Confirmed Last Taken Type Omeprazole 40 mg PO DAILY 03/08/18 01/06/19 03/12/18 07:45 History Pravastatin Sodium [Pravastatin] 10 mg PO QHS 03/08/18 01/06/19 03/11/18 History amLODIPine [Norvasc] 10 mg PO DAILY 03/08/18 01/06/19 03/12/18 07:45 History hydrALAZINE [Apresoline TAB] 100 mg PO TID 03/08/18 01/06/19 03/12/18 07:45 History HYDROcodone/APAP 7.5-325 [[place] 1 each PO Q6HR PRN #40 tablet 03/12/18 01/06/19 Unknown Rx 7.5-325 mg TAB] Acetaminophen 500 mg PO Q8H PRN #20 tablet 06/09/18 01/06/19 Unknown Rx Cyclobenzaprine [Flexeril 10 MG 10 mg PO QHS PRN #10 tablet 06/09/18 01/06/19 Unknown Rx TAB] Active Medications: Generic Name Dose Route Start Last Admin Trade Name Freq PRN Reason Stop Dose Admin Acetaminophen 650 mg 01/06/19 21:24 Tylenol PO Q4H PRN Pain MILD(1-3)/Fever >100.5/VILLALAB Acetaminophen/Hydrocodone Bitart 1 each 01/08/19 10:17 [place] 5/325 PO Q4H PRN Pain, Moderate (4-6) Albumin Human 25 gm 01/07/19 12:22 Alburx 25% (Albumin) IV SHIELA PRN Hypotension Albuterol 2.5 mg 01/06/19 22:14 Proventil IH Q4HRT PRN Shortness Of Breath Amlodipine Besylate 10 mg 01/07/19 10:00 01/11/19 09:49 Norvasc PO Not Given DAILY LORRIE Aspirin 81 mg 01/07/19 10:00 01/11/19 09:47 Baby Aspirin PO 81 mg QDAY LORRIE Administration Atorvastatin Calcium 40 mg 01/06/19 22:00 01/10/19 22:17 Lipitor PO 40 mg QHS LORRIE Administration Clonidine HCl 0.1 mg 01/07/19 08:00 01/11/19 08:56 Catapres PO Not Given TID LORRIE Heparin Sodium (Porcine) 5,000 unit 01/06/19 22:00 01/11/19 09:49 Heparin SUB-Q 5,000 unit Q12HR LORRIE Administration Hydralazine HCl 100 mg 01/07/19 08:00 01/11/19 08:18 Apresoline PO 100 mg TID LORRIE Administration Hydralazine HCl 10 mg 01/06/19 22:06 01/09/19 05:04 Apresoline IV 10 mg Q4H PRN Administration Blood Pressure Sodium Chloride 100 mls @ 999 mls/hr 01/07/19 12:22 Nacl 0.9% IV SHIELA PRN Hypotension Nitroglycerin 0.4 mg 01/06/19 21:24 Nitrostat SL Q5M PRN Chest Pain Ondansetron HCl 4 mg 01/06/19 21:24 Zofran IV Q8H PRN Nausea And Vomiting Oxycodone/Acetaminophen 1 tab 01/06/19 21:31 Percocet 5/325 PO Q6H PRN Pain, Moderate (4-6) Pantoprazole Sodium 40 mg 01/07/19 10:00 01/11/19 09:47 Protonix PO 40 mg DAILY LORRIE Administration Sodium Chloride 10 ml 01/06/19 22:00 01/11/19 09:47 Sodium Chloride Flush Syringe 10 Ml IV 10 ml BID LORRIE Administration Sodium Chloride 10 ml 01/06/19 21:24 01/09/19 05:08 Sodium Chloride Flush Syringe 10 Ml IV 10 ml PRN PRN Administration LINE FLUSH Tramadol HCl 50 mg 01/08/19 10:17 Ultram PO Q4H PRN Pain, Mild (1-3)
== END 2019-01-11 10:40 | disposition home or self-care (01) | DRG 286 ==
LOC: ED 16:33 → 4A 21:24 → OBSVTOIN 01-07 15:28 → 2B-ACE 01-10 21:11
PROVIDERS: ADMIT Internal Medicine; ATTEND Internal Medicine
PROC: 4A023N7 Measurement of Cardiac Sampling and Pressure, Left Heart, Percutaneous Approach (ICD-10-PCS; principal; 2019-01-08)
PROC: B2111ZZ Fluoroscopy of Multiple Coronary Arteries using Low Osmolar Contrast (ICD-10-PCS; 2019-01-08)
PROC: B3101ZZ Fluoroscopy of Thoracic Aorta using Low Osmolar Contrast (ICD-10-PCS; 2019-01-08)
PROC: B2151ZZ Fluoroscopy of Left Heart using Low Osmolar Contrast (ICD-10-PCS; 2019-01-08)
PROC: 5A1D70Z Performance of Urinary Filtration, Intermittent, Less than 6 Hours Per Day (ICD-10-PCS; 2019-01-08)
PROC: 5A1D70Z Performance of Urinary Filtration, Intermittent, Less than 6 Hours Per Day (ICD-10-PCS; 2019-01-10)
PROC: 4A033R1 Measurement of Arterial Saturation, Peripheral, Percutaneous Approach (ICD-10-PCS; 2019-01-10)
DX: R07.9 Chest pain, unspecified (principal); N18.6 End stage renal disease; I13.2 Hypertensive heart and chronic kidney disease with heart failure and with stage 5 chronic kidney disease, or end stage renal disease; N25.81 Secondary hyperparathyroidism of renal origin; E66.9 Obesity, unspecified; K21.9 Gastro-esophageal reflux disease without esophagitis; M19.90 Unspecified osteoarthritis, unspecified site; M10.9 Gout, unspecified; I50.9 Heart failure, unspecified; R91.8 Other nonspecific abnormal finding of lung field; G47.33 Obstructive sleep apnea (adult) (pediatric); I16.0 Hypertensive urgency; D63.1 Anemia in chronic kidney disease; Z99.2 Dependence on renal dialysis; Z68.36 Body mass index [BMI] 36.0-36.9, adult; Z79.899 Other long term (current) drug therapy; Z71.3 Dietary counseling and surveillance
CPT/HCPCS: 36415; 36600; 71045; 71046; 71250; 76604; 78582; 80048; 80053; 80061; 80074; 82803; 82962; 83690; 83970; 84100; 84484; 85025; 85379; 85610; 85730; 93005; 93010; 93458; 93567; G0378; A9270-GY; A9540; A9558; C1760; C1894; J0360; J1644; J2250; J3010; J7030; J7040; P9047; Q9967

== ENCOUNTER 2019-03-04 07:12 | Day surgery (SDC) | payer MEDICARE ==
[2019-03-04 08:55] VITALS: BP 158/68
[2019-03-04 08:58] LABS: Basophils # (Auto) 0.1 K/mm3 (0.0-0.1); Basophils % (Auto) 0.8 % (0.0-1.8); Eosinophils # (Auto) 0.2 K/mm3 (0.0-0.4); Eosinophils % (Auto) 2.4 % (0.0-4.3); Hematocrit 33.3 % (30.3-42.9); Hemoglobin 10.8 gm/dl (10.1-14.3); Lymphocytes # (Auto) 1.7 K/mm3 (1.2-5.4); Lymphocytes % (Auto) 24.8 % (13.4-35.0); Mean Corpuscular HGB Conc 32 % (30-34); Mean Corpuscular Volume 95 fl (79-97); Monocytes # (Auto) 0.7 K/mm3 (0.0-0.8); Monocytes % (Auto) 10.4 % (0.0-7.3); Platelet Count 197 K/mm3 (140-440); Red Blood Count 3.52 M/mm3 (3.65-5.03); Red Cell Distribution Width 16.2 % (13.2-15.2)
[2019-03-04] MEDS ORDERED: ZOFRAN IV ONE (09:00)
[2019-03-04] MEDS ORDERED: DILAUDID IV SCH (09:00)
[2019-03-04 09:14] LABS: INR 1.09 (0.87-1.13)
[2019-03-04 09:15] LABS: Partial Thromboplastin Time 29.7 Sec. (24.2-36.6)
--- NOTE | 2019-03-04 13:36 | Cat Scan Report ---
CT CHEST WITHOUT CONTRAST INDICATION / CLINICAL INFORMATION: Right lung mass. TECHNIQUE: Axial CT images were obtained through the chest without contrast. Sagittal and coronal reformatted im ages. All CT scans at this location are performed using CT dose reduction for ALARA by means of autom ated exposure control. COMPARISON: 01/10/2019 FINDINGS: HEART: Mild cardiomegaly. No pericardial effusion. THORACIC AORTA: Mild scattered calcific plaques. No abnormal dilatation. MEDIASTINUM and ROBER: Normal thyroid gland, tracheobronchial tree and esophagus. No adenopathy or mas s. LUNGS: No acute air space or interstitial disease. PLEURA: No significant pleural effusion. No pneumothorax. A homogeneous fat density right pleural lip wade is identified measuring 10.1 x 3.4 x 8.9 cm. No evidence for internal complexity, soft tissue com ponent or calcifications. This lesion is unchanged since the previous exam. SKELETAL SYSTEM: Intact. Mild multilevel thoracic spondylosis is noted. No suspicious bony lesion. UPPER ABDOMEN: Mild renal atrophy and scattered renal cysts. ADDITIONAL FINDINGS: None. IMPRESSION: Fat density pleural based mass on the right side consistent with a lipoma. No change since 01/10/2019 . This exam was scheduled as a CT-guided biopsy but given the findings biopsy was not performed. Thes e findings were discussed with the ordering physician and surveillance was recommended. Signer Name: Santhosh Nguyen Jr, MD Signed: 03/04/2019 1:32 PM Workstation Name: [id number]
== END 2019-03-04 13:00 | disposition home or self-care (01) ==
LOC: CATHLABREC 07:12 → EDSTATUS 08:30 → CATHLABREC 13:00
PROVIDERS: ATTEND Internal Medicine
DX: I70.0 Atherosclerosis of aorta (principal); R91.8 Other nonspecific abnormal finding of lung field; M47.894 Other spondylosis, thoracic region; N28.1 Cyst of kidney, acquired; I13.2 Hypertensive heart and chronic kidney disease with heart failure and with stage 5 chronic kidney disease, or end stage renal disease; N18.6 End stage renal disease; I50.9 Heart failure, unspecified; N26.1 Atrophy of kidney (terminal); E66.9 Obesity, unspecified; H40.9 Unspecified glaucoma; I73.9 Peripheral vascular disease, unspecified; E78.00 Pure hypercholesterolemia, unspecified; G47.30 Sleep apnea, unspecified; K21.9 Gastro-esophageal reflux disease without esophagitis; F32.9 Major depressive disorder, single episode, unspecified; M19.90 Unspecified osteoarthritis, unspecified site; G62.9 Polyneuropathy, unspecified; Z68.35 Body mass index [BMI] 35.0-35.9, adult; Z79.899 Other long term (current) drug therapy; Z98.49 Cataract extraction status, unspecified eye; Z90.710 Acquired absence of both cervix and uterus; Z87.440 Personal history of urinary (tract) infections; Z99.2 Dependence on renal dialysis; Z98.890 Other specified postprocedural states; Z86.2 Personal history of diseases of the blood and blood-forming organs and certain disorders involving the immune mechanism; Z86.73 Personal history of transient ischemic attack (TIA), and cerebral infarction without residual deficits
CPT/HCPCS: 36415; 71250; 80048; 85025; 85610; 85730

== ENCOUNTER 2019-03-28 07:25 | Inpatient (IN) | payer MEDICARE ==
--- NOTE | 2019-03-28 08:11 | Emergency Department Report ---
ED Chest Pain HPI - General Stated Complaint: CHEST PAIN Time Seen by Provider: 03/28/19 07:47 - History of Present Illness Initial Comments: 73-year-old female presents to the emergency department via EMS from her dialysis clinic with complaint of some chest discomfort and nausea without vomiting. She says that she was on the way to dialysis when she began having some midsternal chest pressure. When she told the staff at the dialysis clinic about her symptoms they called EMS. She was given a full dose aspirin in route without much relief. Denies any tobacco or illicit drug use. She has a past medical history of end-stage renal disease on hemodialysis on Sunday/Sunday/Sunday, CHF, hypertension. The patient had a negative cardiac catheterization on 01/08/19. Her primary care physician is Dr. Aric Martinez. Her technical assoc is Dr. Self. Her road inspector is Dr. Mahmood. No recent travel or sick contacts at home. She denies any shortness of breath, edema, fever. - Related Data Home Medications Medication Instructions Recorded Confirmed Last Taken Omeprazole 40 mg PO DAILY 03/08/18 03/28/19 03/28/19 Pravastatin Sodium [Pravastatin] 10 mg PO QHS 03/08/18 03/28/19 03/28/19 amLODIPine [Norvasc] 10 mg PO DAILY 03/08/18 03/28/19 03/28/19 hydrALAZINE [Apresoline TAB] 100 mg PO TID 03/08/18 03/28/19 03/28/19 Allopurinol [Zyloprim] 100 mg PO DAILY 03/04/19 03/28/19 03/28/19 Levothyroxine [Synthroid] 25 mcg PO DAILY 03/04/19 03/28/19 03/28/19 Sevelamer HCl [Renagel] 800 mg PO AC 03/04/19 03/28/19 03/28/19 Previous Rx's Medication Instructions Recorded Last Taken Type HYDROcodone/APAP 7.5-325 [[place] 1 each PO Q6HR PRN #40 tablet 03/12/18 03/28/19 Rx 7.5-325 mg TAB] Acetaminophen 500 mg PO Q8H PRN #20 tablet 06/09/18 03/24/19 Rx Allergies Allergy/AdvReac Type Severity Reaction Status Date / Time No Known Allergies Allergy Verified 03/08/18 12:44 Heart Score - HEART Score History: Slightly suspicious EKG: Non-specific Age: > 65 Risk factors: 1-2 risk factors Troponin: 1-3x normal limit HEART Score: 5 - Critical Actions Critical Actions: 4-6 pts:12-16.6% risk of adverse cardiac event. Should be admitted ED Review of Systems ROS: Stated complaint: CHEST PAIN Other details as noted in HPI Comment: All other systems reviewed and negative Constitutional: denies: chills, fever Eyes: denies: eye pain, vision change ENT: denies: ear pain, throat pain Respiratory: denies: cough Cardiovascular: chest pain. denies: palpitations Gastrointestinal: nausea. denies: abdominal pain, vomiting Genitourinary: denies: dysuria, discharge Musculoskeletal: denies: back pain, arthralgia Skin: denies: rash, lesions Neurological: denies: headache, weakness ED Past Medical Hx - Past Medical History Hx Hypertension: Yes (X 20 YRS H/o CHF) Hx Congestive Heart Failure: Yes (6 MONTHS AGO - RESOLVED) Hx GERD: Yes Hx Arthritis: Yes Hx Seizures: No Hx Asthma: No Hx COPD: No Hx HIV: No - Social History Smoking Status: Never Smoker - Medications Home Medications: Home Medications Medication Instructions Recorded Confirmed Last Taken Type Omeprazole 40 mg PO DAILY 03/08/18 03/28/19 03/28/19 History Pravastatin Sodium [Pravastatin] 10 mg PO QHS 03/08/18 03/28/19 03/28/19 History amLODIPine [Norvasc] 10 mg PO DAILY 03/08/18 03/28/19 03/28/19 History hydrALAZINE [Apresoline TAB] 100 mg PO TID 03/08/18 03/28/19 03/28/19 History HYDROcodone/APAP 7.5-325 [[place] 1 each PO Q6HR PRN #40 tablet 03/12/18 03/28/19 03/28/19 Rx 7.5-325 mg TAB] Acetaminophen 500 mg PO Q8H PRN #20 tablet 06/09/18 03/28/19 03/24/19 Rx Allopurinol [Zyloprim] 100 mg PO DAILY 03/04/19 03/28/19 03/28/19 History Levothyroxine [Synthroid] 25 mcg PO DAILY 03/04/19 03/28/19 03/28/19 History Sevelamer HCl [Renagel] 800 mg PO AC 03/04/19 03/28/19 03/28/19 History ED Physical Exam - Other Other exam information: GENERAL: The patient is well-developed well-nourished. HENT: Normocephalic. Atraumatic. Patient has moist mucous membranes. EYES: Extraocular motions are intact. NECK: Supple. Trachea is midline. CHEST/LUNGS: Clear to auscultation. There is no respiratory distress noted. HEART/CARDIOVASCULAR: Regular. There is no tachycardia. There is no murmur. ABDOMEN: Abdomen is soft, nontender. Patient has normal bowel sounds. There is no abdominal distention. SKIN: Skin is warm and dry. NEURO: The patient is awake, alert, and oriented. The patient is cooperative. The patient has no focal neurologic deficits. Normal speech. MUSCULOSKELETAL: There is no tenderness or deformity. There is no evidence of acute injury. ED Course Vital Signs 03/28/19 03/28/19 03/28/19 08:15 09:02 10:55 Temperature 98.2 F 98.1 F Pulse Rate 78 70 Respiratory 13 13 17 Rate Blood Pressure 108/82 Blood Pressure 152/78 164/78 [Right] O2 Sat by Pulse 95 95 94 Oximetry 03/28/19 12:39 Temperature 98.2 F Pulse Rate 73 Respiratory 11 L Rate Blood Pressure Blood Pressure 167/77 [Right] O2 Sat by Pulse 95 Oximetry - Consultations Consultation #1: I spoke with the PA from [place] [facility], reviewed the patient's recent visits, including her recent heart catheterization, and discussed the case with the attending road inspector. They recommended a second troponin and if it remains stable the patient is cleared from a cardiac standpoint for discharge home. They are happy to see the patient in the outpatient setting if necessary. 03/28/19 13:13 Consultation #2: I spoke with Dr. Vázquez, nephrology, who was made aware of the patient's pres entation to the emergency department. He attempted to contact the dialysis center, [facility], but was unable to get in touch with anyone there and therefore was unable to schedule the patient for any dialysis session today. For these reasons, he has requested that the patient get dialysis at the hospital and placing orders for dialysis. 03/28/19 13:14 NILO score - Nilo Score Age > 65: (1) Yes Aspirin use within the Past 7 Days: (1) Yes 3 or more CAD Risk Factors: (0) No 2 or more Angina events in past 24 hrs: (0) No Known CAD with more than 50% Stenosis: (0) No Elevated Cardiac Markers: (0) No ST Deviation Greater than 0.5mm: (0) No NILO Score: 2 ED Medical Decision Making - Lab Data Result diagrams: 03/28/19 08:12 03/28/19 08:12 - EKG Data -: EKG Interpreted by Me EKG shows normal: sinus rhythm (PVCs), axis, intervals, QRS complexes (LVH), ST- T waves Rate: normal - EKG Data When compared to previous EKG there are: no significant change Interpretation: unchanged when compared t (01/07/19) - Radiology Data Radiology results: image reviewed interpreted by me: Chest x-ray does not show any acute process. There are no pleural effusions, obvious pneumonia and there is no pneumothorax. - Medical Decision Making This patient presents after having some midsternal chest pressure on her way to dialysis this morning. Upon presentation to the emergency department, the discomfort has improved but has not quite yet resolved. EKG did not show any signs of ST elevation [place] or significant dysrhythmia. Chest x-ray did not show any pleural effusions, pneumonia, pneumothorax or focal consolidation. Her initial labs are mostly unremarkable. There is renal insufficiency but she has end-stage renal disease on dialysis and there is no hyperkalemia. The first troponin was 0.025 which is equivocal but considered within the normal range of our laboratory values. As per the consultation section, I spoke with left heart cardiology who said that the patient is cleared from a cardiac standpoint after she has to stable troponins. The second troponin came back at 0.019 which is trending downwards. I then spoke with nephrology who attempted to contact the dialysis clinic to try and get her set up for a dialysis session later this afternoon. However they were unable to do so and will get her dialyzed at the hospital. Critical Care Time: No Critical care attestation.: If time is entered above; I have spent that time in minutes in the direct care of this critically ill patient, excluding procedure time. ED Disposition Clinical Impression: ESRD needing dialysis Hypertension Qualifiers: Hypertension type: essential hypertension Qualified Code(s): I10 - Essential (primary) hypertension Chest pain Qualifiers: Chest pain type: unspecified Qualified Code(s): R07.9 - Chest pain, unspecified Disposition: 09 OP ADMIT IP TO THIS HOSP Is pt being admited?: Yes Condition: Stable Instructions: Hypertension (ED), Chest Pain (ED) Referrals: ARIC MARTINEZ MD [Primary Care Provider] - 3-5 Days ZEESHAN MAHMOOD MD [Staff Physician] - 3-5 Days RASHAD SELF MD [Staff Physician] - 3-5 Days Time of Disposition: 13:46
--- NOTE | 2019-03-28 08:40 | XRay Report ---
CHEST 1 VIEW INDICATION: Chest Pain. COMPARISON: 01/06/2019 FINDINGS: Support devices: None. Heart: Mild cardiomegaly. Lungs/Pleura: Mild pulmonary venous congestion. No pleural effusion or pneumothorax. Segmental atelec tasis is suspected in the right lower lobe. Additional findings: None. IMPRESSION: Mild cardiomegaly and pulmonary venous congestion. Signer Name: Santhosh Nguyen Jr, MD Signed: 03/28/2019 8:36 AM Workstation Name: [id number]
[2019-03-28 08:50] LABS: Basophils # (Auto) 0.1 K/mm3 (0.0-0.1); Basophils % (Auto) 1.3 % (0.0-1.8); Eosinophils # (Auto) 0.1 K/mm3 (0.0-0.4); Eosinophils % (Auto) 1.9 % (0.0-4.3); Hematocrit 34.6 % (30.3-42.9); Hemoglobin 11.3 gm/dl (10.1-14.3); Lymphocytes # (Auto) 1.3 K/mm3 (1.2-5.4); Lymphocytes % (Auto) 18.6 % (13.4-35.0); Mean Corpuscular HGB Conc 33 % (30-34); Mean Corpuscular Volume 93 fl (79-97); Monocytes # (Auto) 0.6 K/mm3 (0.0-0.8); Monocytes % (Auto) 8.3 % (0.0-7.3); Red Blood Count 3.73 M/mm3 (3.65-5.03); Red Cell Distribution Width 16.4 % (13.2-15.2)
[2019-03-28 08:57] LABS: Platelet Count 157 K/mm3 (140-440)
[2019-03-28 09:03] LABS: Calcium 8.5 mg/dL (8.4-10.2)
[2019-03-28] MEDS ORDERED: ZOFRAN IV ONE (09:12)
[2019-03-28] MEDS ORDERED: MORPHINE IV ONE (09:12)
--- NOTE | 2019-03-28 11:06 | Nuclear Medicine Report ---
VENTILATION PERFUSION PULMONARY SCINTIGRAPHY HISTORY: Chest pain, elevated d-dimer, evaluate for pulmonary embolus. COMPARISON: CT chest dated 03/04/2019 and chest radiograph 03/28/2019 TECHNIQUE: Radiopharmaceutical was inhaled. Tc-99m-MAA was then injected. Ventilation and perfusion images were acquired. RADIOPHARMACEUTICAL: 15.5 mCi of Xe-133 inhaled 5.3 mCi of Tc-99m-MAA injected FINDINGS: VENTILATION: No significant air trapping or defect. PERFUSION: No significant segmental or non-segmental defect. Rounded defect in the lateral right lung corresponds to the large pleural lipoma demonstrated on recent CT chest. Additional Findings: None. IMPRESSION: 1. Low probability for pulmonary embolism. Signer Name: Santhosh Nguyen Jr, MD Signed: 03/28/2019 11:01 AM Workstation Name: [id number]
[2019-03-28] MEDS ORDERED: TYLENOL PO PRN ×2 (13:14→13:15)
[2019-03-28] MEDS ORDERED: PERCOCET 5/325 PO PRN (13:14)
[2019-03-28] MEDS ORDERED: ZOFRAN IV PRN (13:14)
[2019-03-28] MEDS ORDERED: SODIUM CHLORIDE FLUSH SYRINGE 10 ML IV PRN (13:14)
[2019-03-28] MEDS ORDERED: NORCO 7.5/325 PO PRN (13:15)
[2019-03-28] MEDS ORDERED: NACL 0.9% 100 ML IV PRN (13:31)
[2019-03-28] MEDS ORDERED: APRESOLINE ONE (14:32)
[2019-03-28] MEDS: APRESOLINE PO SCH ×2 (14:35→22:20)
[2019-03-28 14:37] LABS: Hepatitis B Surface Antigen Non-Reactive (Negative); Hepatitis C Virus Antibody Non-Reactive (NonReactive)
[2019-03-28] MEDS ORDERED: NON-FORMULARY (Sevelamer Hcl [Renagel] 800 MG) PO SCH (16:30)
[2019-03-28] MEDS ORDERED: NACL 0.9 (PRIMING MACHINE ONLY DIALYSIS) MC ONE (17:10)
--- NOTE | 2019-03-28 21:10 | Consultation ---
History of Present Illness - Reason for Consult Consult date: 03/28/19 end stage renal disease - History of Present Illness This is a 73 year old woman with ESRD who presents with chest pain. She was in normal health and had dialysis as scheduled on 03/26/19, and had no symptoms of dizziness, lightheadedness, cramping at that time. However, before her dialysis session today, she had chest pain and was sent to the ED. She had a cardiac evaluation in ED that was unremarkable. She is now on HD and tolerating well, without any chest pain, dyspnea, nausea, vomiting, cramping noted. Past History Past Medical History: ESRD Medications and Allergies Allergies Allergy/AdvReac Type Severity Reaction Status Date / Time No Known Allergies Allergy Verified 03/08/18 12:44 Home Medications Medication Instructions Recorded Confirmed Last Taken Type Omeprazole 40 mg PO DAILY 03/08/18 03/28/19 03/28/19 History Pravastatin Sodium [Pravastatin] 10 mg PO QHS 03/08/18 03/28/19 03/28/19 History amLODIPine [Norvasc] 10 mg PO DAILY 03/08/18 03/28/19 03/28/19 History hydrALAZINE [Apresoline TAB] 100 mg PO TID 03/08/18 03/28/19 03/28/19 History HYDROcodone/APAP 7.5-325 [[place] 1 each PO Q6HR PRN #40 tablet 03/12/18 03/28/19 03/28/19 Rx 7.5-325 mg TAB] Acetaminophen 500 mg PO Q8H PRN #20 tablet 06/09/18 03/28/19 03/24/19 Rx Allopurinol [Zyloprim] 100 mg PO DAILY 03/04/19 03/28/19 03/28/19 History Levothyroxine [Synthroid] 25 mcg PO DAILY 03/04/19 03/28/19 03/28/19 History Sevelamer HCl [Renagel] 800 mg PO AC 03/04/19 03/28/19 03/28/19 History Active Meds: Active Medications Acetaminophen (Tylenol) 650 mg PO Q4H PRN PRN Reason: Pain MILD(1-3)/Fever >100.5/VILLALBA Acetaminophen/Hydrocodone Bitart ([place] 7.5/325) 1 each PO Q6HR PRN PRN Reason: Pain Allopurinol (Zyloprim) 100 mg PO DAILY [facility] Amlodipine Besylate (Norvasc) 10 mg PO DAILY [facility] Hydralazine HCl (Apresoline) 100 mg PO TID [facility] Last Admin: 03/28/19 14:35 Dose: 100 mg Documented by: Sodium Chloride (Nacl 0.9%) 100 mls @ 999 mls/hr IV SHIELA PRN PRN Reason: Hypotension Levothyroxine Sodium (Synthroid) 25 mcg PO DAILY@0600 [facility] Ondansetron HCl (Zofran) 4 mg IV Q8H PRN PRN Reason: Nausea And Vomiting Oxycodone/Acetaminophen (Percocet 5/325) 1 tab PO Q6H PRN PRN Reason: Pain, Moderate (4-6) Pantoprazole Sodium (Protonix) 40 mg PO DAILY [facility] Pravastatin Sodium (Pravachol) 10 mg PO QHS [place] Sevelamer Carbonate (Renvela) 800 mg PO AC [facility] Sodium Chloride (Sodium Chloride Flush Syringe 10 Ml) 10 ml IV BID [facility] Sodium Chloride (Sodium Chloride Flush Syringe 10 Ml) 10 ml IV PRN PRN PRN Reason: LINE FLUSH Review of Systems All systems: negative (per HPI) Exam - Vital Signs Vital signs: Vital Signs Temp Pulse Resp BP Pulse Ox 98.2 F 78 13 152/78 95 03/28/19 08:15 03/28/19 08:15 03/28/19 08:15 03/28/19 08:15 03/28/19 08:15 - General Appearance General appearance: well-developed, well-nourished, appears stated age EENT: PERRL, mucous membranes moist Neck: Present: neck supple, trachea midline. Absent: JVD/HJR, Masses Respiratory: Clear to Ascultation Heart: regular, normal heart rate, S1S2, no murmurs Gastrointestinal: Present: normal. Absent: tenderness, distended, masses, guarding Integumentary: no rash, warm and dry Neurologic: no focal deficit, alert and oriented x3, gait normal, strength 5/5 Results - Lab Results 03/28/19 08:12 03/28/19 08:12 Most recent lab results Calcium 8.5 mg/dL (8.4-10.2) 03/28/19 08:12 Assessment and Plan Assessment/Plan: This is a 73 year old woman with ESRD who presents with chest pain. Unclear etiology of chest pain, but no clear cardiac cause and now tolerating HD. # ESRD: continue HD MWF as tolerated; UF as tolerated. Avoid nephrotoxins, renally dose all medications # HTN: BP at goal # Chest pain: appreciate cardiac workup
[2019-03-28] MEDS ORDERED: PRAVACHOL PO SCH (22:00)
[2019-03-28] MEDS ORDERED: NON-FORMULARY (Pravastatin Sodium [Pravastatin] 10 MG) PO SCH (22:00)
[2019-03-28] MEDS: RENVELA PO SCH (22:09)
[2019-03-28] MEDS: SODIUM CHLORIDE FLUSH SYRINGE 10 ML IV SCH (22:09)
[2019-03-29] MEDS ORDERED: SYNTHROID PO SCH (06:00)
--- NOTE | 2019-03-29 06:54 | History and Physical Report ---
History of Present Illness Date of admission: 03/28/19 13:14 Chief complaint: I missed dialysis, because I just didnt feel right History of present illness: 73 YO Female with ESRD on HD (M,W,F), Anxiety,GERD, Hypothyroidism, HLD, HTN, Obesity, OA, CHF presents to ED for evaluation. Pt states that she was en route to her dialysis center for her routine scheduled dialysis whe she begen to "not feel right". Pt acknowledges feeling anxious with fear of impending doom as well as chest discomfort, shortness of breath. EMS notified, and upon arrival the patient was found to be in distress. Pt transported to [facility]. Pt seen and evaluated in ED and found to have ESRD in need of dialysis,and Hypertensive Emergency. Cardiology team notified in ED, and deemed theat patient has no active cardiac symptoms. Nephrology consulted in ED for urgent dialysis. Pt denies fever, chills, CP, Palpitations, Trauma, BRBPR, Productive cough, skin rash, or recent ill contacts. Prior admission on 01/07/19 reviewed. All listed medication reconciled at time of admission. Past History Past Medical History: arthritis, ESRD, GERD, heart failure, hypertension, hyperlipidemia, hypothyroidism, other (Anxiety) Past Surgical History: Other (Dailysis access) Social history: single. denies: smoking, prescription drug abuse Family history: CAD, diabetes, hypertension Medications and Allergies Allergies Allergy/AdvReac Type Severity Reaction Status Date / Time No Known Allergies Allergy Verified 03/08/18 12:44 Home Medications Medication Instructions Recorded Confirmed Last Taken Type Omeprazole 40 mg PO DAILY 03/08/18 03/28/19 03/28/19 History Pravastatin Sodium [Pravastatin] 10 mg PO QHS 03/08/18 03/28/19 03/28/19 History amLODIPine [Norvasc] 10 mg PO DAILY 03/08/18 03/28/19 03/28/19 History hydrALAZINE [Apresoline TAB] 100 mg PO TID 03/08/18 03/28/19 03/28/19 History HYDROcodone/APAP 7.5-325 [[place] 1 each PO Q6HR PRN #40 tablet 03/12/18 03/28/19 03/28/19 Rx 7.5-325 mg TAB] Acetaminophen 500 mg PO Q8H PRN #20 tablet 06/09/18 03/28/19 03/24/19 Rx Allopurinol [Zyloprim] 100 mg PO DAILY 03/04/19 03/28/19 03/28/19 History Levothyroxine [Synthroid] 25 mcg PO DAILY 03/04/19 03/28/19 03/28/19 History Sevelamer HCl [Renagel] 800 mg PO AC 03/04/19 03/28/19 03/28/19 History Active Meds: Active Medications Acetaminophen (Tylenol) 650 mg PO Q4H PRN PRN Reason: Pain MILD(1-3)/Fever >100.5/[place]AL[place] Acetaminophen/Hydrocodone Bitart ([place] 7.5/325) 1 each PO Q6HR PRN PRN Reason: Pain Allopurinol (Zyloprim) 100 mg PO DAILY [facility] Amlodipine Besylate (Norvasc) 10 mg PO DAILY [facility] Hydralazine HCl (Apresoline) 100 mg PO TID [facility] Last Admin: 03/28/19 22:20 Dose: 100 mg Documented by: Sodium Chloride (Nacl 0.9%) 100 mls @ 999 mls/hr IV SHIELA PRN PRN Reason: Hypotension Levothyroxine Sodium (Synthroid) 25 mcg PO DAILY@0600 [facility] Last Admin: 03/29/19 05:23 Dose: 25 mcg Documented by: Ondansetron HCl (Zofran) 4 mg IV Q8H PRN PRN Reason: Nausea And Vomiting Oxycodone/Acetaminophen (Percocet 5/325) 1 tab PO Q6H PRN PRN Reason: Pain, Moderate (4-6) Last Admin: 03/28/19 22:51 Dose: 1 tab Documented by: Pantoprazole Sodium (Protonix) 40 mg PO DAILY [facility] Pravastatin Sodium (Pravachol) 10 mg PO QHS [facility] Last Admin: 03/28/19 22:09 Dose: 10 mg Documented by: Sevelamer Carbonate (Renvela) 800 mg PO AC [facility] Last Admin: 03/28/19 22:09 Dose: 800 mg Documented by: Sodium Chloride (Sodium Chloride Flush Syringe 10 Ml) 10 ml IV BID [facility] Last Admin: 03/28/19 22:09 Dose: 10 ml Documented by: Sodium Chloride (Sodium Chloride Flush Syringe 10 Ml) 10 ml IV PRN PRN PRN Reason: LINE FLUSH Review of Systems All systems: negative Constitutional: other (Anxiety, chest discomfort, ) Cardiovascular: shortness of breath Exam - Constitutional Vitals: Temp Pulse Resp BP Pulse Ox 98.3 F 63 18 131/74 98 03/29/19 04:19 03/29/19 06:03/29/19 04:19 03/29/19 04:03/29/19 04:19 General appearance: Present: mild distress, obese - EENT Eyes: Present: PERRL ENT: hearing intact, clear oral mucosa - Neck Neck: Present: supple, normal ROM - Respiratory Respiratory effort: normal Respiratory: bilateral: CTA - Cardiovascular Heart Sounds: Present: S1 & S2. Absent: rub, click - Extremities Extremities: pulses symmetrical, No edema Peripheral Pulses: within normal limits - Abdominal General gastrointestinal: Present: soft, non-tender, non-distended, normal bowel sounds Female genitourinary: Present: normal - Integumentary Integumentary: Present: clear, warm, dry - Musculoskeletal Musculoskeletal: gait normal, strength equal bilaterally - Psychiatric Psychiatric: appropriate mood/affect, intact judgment & insight - Neurologic Neurologic: CNII-XII intact, moves all extremities Results - Labs CBC & Chem 7: 03/28/19 08:12 03/28/19 08:12 Labs: Abnormal lab results 03/28/19 03/28/19 03/28/19 Range/Units 08:12 08:12 08:12 RDW 16.4 H (13.2-15.2) % [place] % (Auto) 8.3 H (0.0-7.3) % D-Dimer 530.54 H (0-234) ng/mlDDU Chloride 94.5 L (98-107) mmol/L BUN 53 H (7-17) mg/dL Creatinine 7.8 H (0.7-1.2) mg/dL Assessment and Plan - Patient Problems (1) ESRD needing dialysis Current Visit: Yes Status: Acute Plan to address problem: Nephrology consulted in ED for urgent dialysis, avoid nephrotoxic agents, monitor uo q shift, (2) Hypothyroidism Current Visit: Yes Status: Acute Qualifiers: Hypothyroidism type: acquired Qualified Code(s): E03.9 - Hypothyroidism, unspecified Plan to address problem: Continue synthroid therapy, supportive care. (3) HLD (hyperlipidemia) Current Visit: Yes Status: Acute Qualifiers: Hyperlipidemia type: mixed hyperlipidemia Qualified Code(s): E78.2 - Mixed hyperlipidemia Plan to address problem: Balanced diet, low fat, low cholesterol diet, continue statin therapy (4) HTN (hypertension) Current Visit: Yes Status: Acute Qualifiers: Hypertension type: essential hypertension Qualified Code(s): I10 - Essential (primary) hypertension Plan to address problem: Monitor BP q shift, urgent dialysis, continue medical management. (5) CHF (congestive heart failure) Current Visit: No Status: Acute Qualifiers: Heart failure chronicity: chronic Plan to address problem: Strict I/O, Afterload reduction, blood pressure control, daily weight, monitor uop q shift, Monitor I/O to ensure negative fluid balance, urgent dialysis, pulse oximetry, supplemental oxygen (6) Obesity (BMI 30-39.9) Current Visit: No Status: Acute Plan to address problem: balanced diet, increased physical activity at discharge (7) GERD (gastroesophageal reflux disease) Current Visit: Yes Status: Acute Plan to address problem: PPI therapy, supportive care. (8) Anxiety Current Visit: Yes Status: Acute Plan to address problem: Resolved at time of exam, ativan PRN, supportive care. (9) DVT prophylaxis Current Visit: Yes Status: Acute Plan to address problem: SCD to BLE while in bed, Pt ambulatory
[2019-03-29] MEDS: APRESOLINE PO SCH (08:22)
[2019-03-29] MEDS: RENVELA PO SCH ×2 (08:22→12:23)
--- NOTE | 2019-03-29 09:34 | Discharge Summary ---
Providers - Providers Date of Admission: 03/28/19 13:14 Attending physician: SCOTT LIPSCOMB MD 03/28/19 14:07 Consult to Physician [CONS] Routine Comment: Consulting Provider: LUCIE ASHTON Physician Instructions: Reason For Exam: dialysis Primary care physician: ARIC WEEKS Hospitalization Reason for admission: SHORTNESS OF BREATH Condition: Stable Hospital course: 73 YO Female with ESRD on HD (M,W,F), Anxiety,GERD, Hypothyroidism, HLD, HTN, Obesity, OA, CHF presents to ED for evaluation. Pt states that she was en route to her dialysis center for her routine scheduled dialysis whe she begen to "not feel right". Pt acknowledges feeling anxious with fear of impending doom as well as chest discomfort, shortness of breath. EMS notified, and upon arrival the patient was found to be in distress. Pt transported to [facility]. Pt seen and evaluated in ED and found to have ESRD in need of dialysis,and Hypertensive Emergency. Cardiology team notified in ED, and deemed theat patient has no active cardiac symptoms. Nephrology consulted in ED for urgent dialysis. Pt denies fever, chills, CP, Palpitations, Trauma, BRBPR, Productive cough, skin rash, or recent ill contacts. Prior admission on 01/07/19 reviewed. All listed medication reconciled at time of admission. * Reviewed last record and patient had a recent cardiac cath that was negative. * Pulmonary continues to follow outpatient for effusions. * She is clinical stable at this time for discharge Following * V/Q. Low probability for pulmonary embolism. (1) ESRD needing dialysis (2) Hypothyroidism (3) HLD (hyperlipidemia) (4) HTN (hypertension) (5) CHF (congestive heart failure) (6) Obesity (BMI 30-39.9) (7) GERD (gastroesophageal reflux disease) (8) Anxiety (9) Atypical chest pain secondary to volume overload Disposition: [id number]/TX-06 HOME UNDER HOME HL Time spent for discharge: 35 mins Core Measure Documentation - Palliative Care Palliative Care/ Comfort Measures: Not Applicable - Core Measures Any of the following diagnoses?: none Exam - Physical Exam Narrative exam: General appearance: Present: stable, obese - EENT Eyes: Present: PERRL ENT: hearing intact, clear oral mucosa - Neck Neck: Present: supple, normal ROM - Respiratory Respiratory effort: normal Respiratory: bilateral: CTA - Cardiovascular Heart Sounds: Present: S1 & S2. Absent: rub, click - Extremities Extremities: pulses symmetrical, No edema Peripheral Pulses: within normal limits - Abdominal General gastrointestinal: Present: soft, non-tender, non-distended, normal bowel sounds Female genitourinary: Present: normal - Integumentary Integumentary: Present: clear, warm, dry - Musculoskeletal Musculoskeletal: gait normal, strength equal bilaterally - Psychiatric Psychiatric: appropriate mood/affect, intact judgment & insight - Neurologic Neurologic: CNII-XII intact, moves all extremities - Constitutional Vitals: Temp Pulse Resp BP Pulse Ox 97.4 F L 66 18 139/60 100 03/29/19 07:58 03/29/19 07:58 03/29/19 07:58 03/29/19 07:58 03/29/19 07:58 Plan Activity: advance as tolerated, fall precautions Diet: renal Special Instructions: record daily weights, record daily BP diary Follow up with: ZEESHAN JAMA MD [Staff Physician] - 3-5 Days RASHAD SELF MD [Staff Physician] - 3-5 Days ARIC WEEKS MD [Primary Care Provider] - 3-5 Days
[2019-03-29] MEDS ORDERED: NON-FORMULARY (Omeprazole [Omeprazole] 40 MG) PO SCH (10:00)
[2019-03-29] MEDS ORDERED: NORVASC PO SCH (10:00)
[2019-03-29] MEDS ORDERED: PROTONIX PO SCH (10:00)
[2019-03-29] MEDS ORDERED: ZYLOPRIM PO SCH (10:00)
[2019-03-29 10:24] VITALS: BP 136/71
[2019-03-29] MEDS: SODIUM CHLORIDE FLUSH SYRINGE 10 ML IV SCH (10:24)
== END 2019-03-29 13:41 | disposition home or self-care (01) | DRG 640 ==
LOC: ED 07:25 → 4A 13:14
PROVIDERS: ADMIT Internal Medicine; ATTEND Internal Medicine
PROC: 5A1D70Z Performance of Urinary Filtration, Intermittent, Less than 6 Hours Per Day (ICD-10-PCS; principal; 2019-03-28)
DX: E87.70 Fluid overload, unspecified (principal); N18.6 End stage renal disease; I13.2 Hypertensive heart and chronic kidney disease with heart failure and with stage 5 chronic kidney disease, or end stage renal disease; I16.1 Hypertensive emergency; I50.9 Heart failure, unspecified; Z99.2 Dependence on renal dialysis; K21.9 Gastro-esophageal reflux disease without esophagitis; M19.90 Unspecified osteoarthritis, unspecified site; F41.9 Anxiety disorder, unspecified; E03.9 Hypothyroidism, unspecified; E66.9 Obesity, unspecified; Z68.32 Body mass index [BMI] 32.0-32.9, adult; Z83.3 Family history of diabetes mellitus; Z82.49 Family history of ischemic heart disease and other diseases of the circulatory system
CPT/HCPCS: 36415; 71045; 78582; 80048; 80074; 84484; 85025; 85379; 93005; 93010; 94760; 96374; G0378; A9270-GY; A9540; A9558; J2405; J7030

== ENCOUNTER 2019-03-31 11:19 | Inpatient (IN) | payer MEDICARE ==
--- NOTE | 2019-03-31 11:28 | Emergency Department Report ---
Blank Doc - Documentation Documentation: This is a 73-year-old female that presents with chest pain and SOB. Stated has missed dialysis today. This initial assessment/diagnostic orders/clinical plan/treatment(s) is/are subject to change based on patient's health status, clinical progression and re- assessment by fellow clinical providers in the ED. Further treatment and workup at subsequent clinical providers discretion. Patient/guardians urged not to elope from the ED as their condition may be serious if not clinically assessed and managed. Initial orders include: 1- Patient sent to MAIN ED for further evaluation and treatment 2- labs 3- EKG 4- CXR
[2019-03-31 12:41] LABS: Basophils % (Auto) 0.7 % (0.0-1.8); Eosinophils % (Auto) 0.6 % (0.0-4.3); Hematocrit 34.5 % (30.3-42.9); Lymphocytes # (Auto) 0.5 K/mm3 (1.2-5.4); Lymphocytes % (Auto) 7.7 % (13.4-35.0); Mean Corpuscular HGB Conc 32 % (30-34); Mean Corpuscular Volume 94 fl (79-97); Monocytes # (Auto) 0.4 K/mm3 (0.0-0.8); Monocytes % (Auto) 5.9 % (0.0-7.3); Platelet Count 170 K/mm3 (140-440); Red Blood Count 3.66 M/mm3 (3.65-5.03); Red Cell Distribution Width 16.7 % (13.2-15.2)
--- NOTE | 2019-03-31 12:41 | XRay Report ---
CHEST 2 VIEWS INDICATION: Chest Pain. COMPARISON: 03/28/2019 FINDINGS: Support devices: None. Heart: Stable mild cardiomegaly Lungs/pleura: Bilateral perihilar prominence is present and increased since the previous exam which c ould represent perihilar infiltrates or congestive changes. No large pleural effusion or pneumothorax . The bony structures are grossly intact. Additional findings: None. IMPRESSION: Mild cardiomegaly and pulmonary venous congestion. Signer Name: Santhosh Nguyen Jr, MD Signed: 03/31/2019 12:37 PM Workstation Name: [id number]
[2019-03-31 12:47] LABS: INR 1.06 (0.87-1.13)
[2019-03-31 12:48] LABS: Partial Thromboplastin Time 29.5 Sec. (24.2-36.6)
[2019-03-31 12:59] LABS: Albumin 4.2 g/dL (3.9-5); Calcium 8.5 mg/dL (8.4-10.2)
--- NOTE | 2019-03-31 14:44 | Emergency Department Report ---
ED Shortness of Breath HPI - General Chief Complaint: Dyspnea/Respdistress Stated Complaint: SOB Time Seen by Provider: 03/31/19 11:26 Source: patient, family Mode of arrival: Wheelchair Limitations: No Limitations - History of Present Illness Initial Comments: 73-year-old female with history of CHF, ESRD, COPD presents to ED with shortness of breath since this morning. Patient is on dialysis schedule. Patient was last dialyzed on Sunday, 3 days ago. Patient is due for dialysis today. Instead, patient went to see her PCP, Dr. Keith Martinez because of her shortness of breath. Patient is chronically on 2 L of O2, however states her PCP increased it to 4 L and advised her to report to the ED for dialysis. 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 Grader: Dr Veronica KWON Complaint: shortness of breath -: This morning Severity: moderate Consistency: constant Improves With: rest Worsens With: exertion Known History Of: COPD, congestive heart failure, other (ESRD) Treatments Prior to Arrival: oxygen - Related Data Home Oxygen Therapy: Yes Home Oxygen Amount: 2 Liters Home Medications Medication Instructions Recorded Confirmed Last Taken Omeprazole 40 mg PO DAILY 03/08/18 03/31/19 03/30/19 Pravastatin Sodium [Pravastatin] 10 mg PO QHS 03/08/18 03/31/19 03/30/19 amLODIPine [Norvasc] 10 mg PO DAILY 03/08/18 03/31/19 03/30/19 hydrALAZINE [Apresoline TAB] 100 mg PO TID 03/08/18 03/31/19 03/30/19 Allopurinol [Zyloprim] 100 mg PO DAILY 03/04/19 03/31/19 03/30/19 Levothyroxine [Synthroid] 25 mcg PO DAILY 03/04/19 03/31/19 03/30/19 Sevelamer HCl [Renagel] 800 mg PO AC 03/04/19 03/31/19 03/30/19 Previous Rx's Medication Instructions Recorded Last Taken Type HYDROcodone/APAP 7.5-325 [[place] 1 each PO Q6HR PRN #40 tablet 03/12/18 03/30/19 Rx 7.5-325 mg TAB] Acetaminophen 500 mg PO Q8H PRN #20 tablet 06/09/18 03/30/19 Rx Allergies Allergy/AdvReac Type Severity Reaction Status Date / Time No Known Allergies Allergy Verified 03/08/18 12:44 ED Review of Systems ROS: Stated complaint: SOB Other details as noted in HPI Comment: All other systems reviewed and negative Constitutional: denies: chills, fever Respiratory: cough, shortness of breath Cardiovascular: denies: chest pain Musculoskeletal: other (reports lower extremity edema) ED Past Medical Hx - Past Medical History Previous Medical History?: Yes Hx Hypertension: Yes (X 20 YRS H/o CHF) Hx Congestive Heart Failure: Yes (6 MONTHS AGO - RESOLVED) Hx GERD: Yes Hx Renal Disease: Yes Hx Arthritis: Yes Hx Seizures: No Hx Asthma: No Hx COPD: No Hx HIV: No - Social History Smoking Status: Unknown if ever smoked Substance Use Type: None - Medications Home Medications: Home Medications Medication Instructions Recorded Confirmed Last Taken Type Omeprazole 40 mg PO DAILY 03/08/18 03/31/19 03/30/19 History Pravastatin Sodium [Pravastatin] 10 mg PO QHS 03/08/18 03/31/19 03/30/19 History amLODIPine [Norvasc] 10 mg PO DAILY 03/08/18 03/31/19 03/30/19 History hydrALAZINE [Apresoline TAB] 100 mg PO TID 03/08/18 03/31/19 03/30/19 History HYDROcodone/APAP 7.5-325 [[place] 1 each PO Q6HR PRN #40 tablet 03/12/18 03/31/19 03/30/19 Rx 7.5-325 mg TAB] Acetaminophen 500 mg PO Q8H PRN #20 tablet 06/09/18 03/31/19 03/30/19 Rx Allopurinol [Zyloprim] 100 mg PO DAILY 03/04/19 03/31/19 03/30/19 History Levothyroxine [Synthroid] 25 mcg PO DAILY 03/04/19 03/31/19 03/30/19 History Sevelamer HCl [Renagel] 800 mg PO AC 03/04/19 03/31/19 03/30/19 History ED Physical Exam - General Limitations: No Limitations General appearance: alert, in no apparent distress - Head Head exam: Present: atraumatic, normocephalic - Eye Eye exam: Present: normal appearance, PERRL, EOMI - ENT ENT exam: Present: mucous membranes moist - Neck Neck exam: Present: normal inspection - Respiratory Respiratory exam: Present: rales. Absent: respiratory distress - Cardiovascular Cardiovascular Exam: Present: regular rate, normal rhythm - GI/Abdominal GI/Abdominal exam: Present: soft. Absent: distended, tenderness - Extremities Exam Extremities exam: Present: other (2+ edema BLE) - Neurological Exam Neurological exam: Present: alert, oriented X3 - Psychiatric Psychiatric exam: Present: normal affect, normal mood - Skin Skin exam: Present: warm, dry, intact, normal color ED Course Vital Signs 03/31/19 03/31/19 03/31/19 11:27 14:57 17:54 Temperature 97.7 F 98.0 F Pulse Rate 76 74 74 Respiratory 22 23 Rate Blood Pressure 209/109 150/64 Blood Pressure 190/70 [Right] O2 Sat by Pulse 96 96 Oximetry - Consultations Consultation #1: 03/31/19 15:13 Spoke w/ Claudia Berg NP with Dr Martin's group. Will dialyze the pt. ED Medical Decision Making - Lab Data Result diagrams: 03/31/19 12:30 03/31/19 12:30 - EKG Data -: EKG Interpreted by [place] EKG shows normal: sinus rhythm, axis, intervals, QRS complexes, ST-T waves Rate: normal - EKG Data Interpretation: other (occasional PVCs) - Radiology Data Radiology results: report reviewed, image reviewed - Medical Decision Making 73-year-old female with fluid overload. Patient is CHF and ESRD. Due to have dialysis today. Nephrology contacted to arrange dialysis. Will admit to hospitalist, Dr Berrios - Differential Diagnosis COPD, CHF, hyperkalemia, ESRD Critical Care Time: Yes Critical care time in (mins) excluding proc time.: 35 Critical care attestation.: If time is entered above; I have spent that time in minutes in the direct care of this critically ill patient, excluding procedure time. Critical Care Time: 35 minutes ED Disposition Clinical Impression: ESRD needing dialysis, Pulmonary edema Disposition: OP ADMIT IP TO THIS HOSP Is pt being admited?: Yes Condition: Stable Time of Disposition: 15:14
[2019-03-31] MEDS ORDERED: NACL 0.9% 100 ML IV PRN (15:28)
[2019-03-31] MEDS ORDERED: IBUPROFEN PO PRN (17:25)
[2019-03-31] MEDS ORDERED: DILAUDID IV PRN (17:25)
[2019-03-31] MEDS ORDERED: SODIUM CHLORIDE FLUSH SYRINGE 10 ML IV PRN (17:25)
[2019-03-31] MEDS ORDERED: ZOFRAN IV PRN (17:25)
[2019-03-31] MEDS ORDERED: TYLENOL PO PRN ×2 (17:25→17:27)
[2019-03-31] MEDS ORDERED: NORCO 7.5/325 PO PRN (17:27)
[2019-03-31] MEDS ORDERED: NON-FORMULARY (Omeprazole [Omeprazole] 40 MG) PO SCH (17:30)
[2019-03-31] MEDS: NORVASC PO SCH (17:54)
[2019-03-31] MEDS: ZYLOPRIM PO SCH (17:55)
[2019-03-31] MEDS ORDERED: NACL 0.9 (PRIMING MACHINE ONLY DIALYSIS) MC ONE (23:23)
[2019-03-31] MEDS: APRESOLINE PO SCH (23:44)
[2019-03-31] MEDS: PRAVACHOL PO SCH (23:44)
[2019-03-31] MEDS: HEPARIN SUB-Q SCH (23:45)
[2019-03-31] MEDS: SODIUM CHLORIDE FLUSH SYRINGE 10 ML IV SCH (23:45)
[2019-04-01 00:14] LABS: Bacteria,Urine 1+ /HPF (Negative); Bilirubin,Urine NEG (Negative); Blood,Urine NEG (Negative); Color,Urine Yellow (Yellow); Mucus,Urine FEW /HPF; Urobilinogen,Urine < 2.0 mg/dL (<2.0)
--- NOTE | 2019-04-01 05:14 | History and Physical Report ---
History of Present Illness Date of examination: 03/31/19 Date of admission: 03/31/19 17:25 Chief complaint: SOB at rest HD 3 days ago. History of present illness: 73-year-old female with history of CHF, ESRD, COPD presents to ED with shortness of breath since this morning. Patient is on dialysis schedule. Patient was last dialyzed on Sunday, 3 days ago. Patient is due for dialysis today. Instead, patient went to see her PCP, Dr. Keith Martinez because of her shortness of breath. Patient is chronically on 2 L of O2, however states her PCP increased it to 4 L and advised her to report to the ED for dialysis. Orthopnea present SOB on minimal exertion. No chest pain. Past Medical History Previous Medical History?: Yes Hypertension: Yes (X 20 YRS H/o CHF) Congestive Heart Failure: Yes (6 MONTHS AGO - RESOLVED) GERD: Yes Renal Disease: Yes Arthritis: Yes Surgical history AV Fistula Family History Htn Social History Smoking Status: Unknown if ever smoked Substance Use Type: None Medications Home Medications: Home Medications Medication Instructions Recorded Confirmed Last Taken Type Omeprazole 40 mg PO DAILY 03/08/18 03/31/19 03/30/19 History Pravastatin Sodium [Pravastatin] 10 mg PO QHS 03/08/18 03/31/19 03/30/19 History amLODIPine [Norvasc] 10 mg PO DAILY 03/08/18 03/31/19 03/30/19 History hydrALAZINE [Apresoline TAB] 100 mg PO TID 03/08/18 03/31/19 03/30/19 History HYDROcodone/APAP 7.5-325 [[place] 1 each PO Q6HR PRN #40 tablet 03/12/18 03/31/19 03/30/19 Rx 7.5-325 mg TAB] Acetaminophen 500 mg PO Q8H PRN #20 tablet 06/09/18 03/31/19 03/30/19 Rx Allopurinol [Zyloprim] 100 mg PO DAILY 03/04/19 03/31/19 03/30/19 History Levothyroxine [Synthroid] 25 mcg PO DAILY 03/04/19 03/31/19 03/30/19 History Sevelamer HCl [Renagel] 800 mg PO AC 03/04/19 03/31/19 03/30/19 History Review of Systems ROS: Stated complaint: SOB Other details as noted in HPI Comment: All other systems reviewed and negative Constitutional: denies: chills, fever Respiratory: cough, shortness of breath Cardiovascular: denies: chest pain Musculoskeletal: other (reports lower extremity edema) Medications and Allergies Allergies Allergy/AdvReac Type Severity Reaction Status Date / Time No Known Allergies Allergy Verified 03/08/18 12:44 Home Medications Medication Instructions Recorded Confirmed Last Taken Type Omeprazole 40 mg PO DAILY 03/08/18 03/31/19 03/30/19 History Pravastatin Sodium [Pravastatin] 10 mg PO QHS 03/08/18 03/31/19 03/30/19 History amLODIPine [Norvasc] 10 mg PO DAILY 03/08/18 03/31/19 03/30/19 History hydrALAZINE [Apresoline TAB] 100 mg PO TID 03/08/18 03/31/19 03/30/19 History HYDROcodone/APAP 7.5-325 [[place] 1 each PO Q6HR PRN #40 tablet 03/12/18 03/31/19 03/30/19 Rx 7.5-325 mg TAB] Acetaminophen 500 mg PO Q8H PRN #20 tablet 06/09/18 03/31/19 03/30/19 Rx Allopurinol [Zyloprim] 100 mg PO DAILY 03/04/19 03/31/19 03/30/19 History Levothyroxine [Synthroid] 25 mcg PO DAILY 03/04/19 03/31/19 03/30/19 History Sevelamer HCl [Renagel] 800 mg PO AC 03/04/19 03/31/19 03/30/19 History Active Meds: Active Medications Acetaminophen (Tylenol) 650 mg PO Q4H PRN PRN Reason: Pain MILD(1-3)/Fever >100.5/VILLALBA Last Admin: 03/31/19 23:44 Dose: 650 mg Documented by: Acetaminophen (Tylenol) 500 mg PO Q8H PRN PRN Reason: pain Acetaminophen/Hydrocodone Bitart ([place] 7.5/325) 1 each PO Q6HR PRN PRN Reason: Pain Allopurinol (Zyloprim) 100 mg PO DAILY [facility] Last Admin: 03/31/19 17:55 Dose: Not Given Documented by: Amlodipine Besylate (Norvasc) 10 mg PO DAILY [facility] Last Admin: 03/31/19 17:54 Dose: 10 mg Documented by: Heparin Sodium (Porcine) (Heparin) 5,000 unit SUB-Q Q12HR [facility] Last Admin: 03/31/19 23:45 Dose: 5,000 unit Documented by: Hydralazine HCl (Apresoline) 100 mg PO TID [facility] Last Admin: 03/31/19 23:44 Dose: 100 mg Documented by: Hydromorphone HCl (Dilaudid) 0.5 mg IV Q3H PRN PRN Reason: Pain , Severe (7-10) Sodium Chloride (Nacl 0.9%) 100 mls @ 999 mls/hr IV SHIELA PRN PRN Reason: Hypotension Ibuprofen (Ibuprofen) 600 mg PO Q6H PRN PRN Reason: Pain, Mild (1-3) Levothyroxine Sodium (Synthroid) 25 mcg PO DAILY [facility] Ondansetron HCl (Zofran) 4 mg IV Q8H PRN PRN Reason: Nausea And Vomiting Pantoprazole Sodium (Protonix) 40 mg PO DAILY [facility] Pravastatin Sodium (Pravachol) 10 mg PO QHS [facility] Last Admin: 03/31/19 23:44 Dose: 10 mg Documented by: Sevelamer Carbonate (Renvela) 800 mg PO AC [facility] Sodium Chloride (Sodium Chloride Flush Syringe 10 Ml) 10 ml IV BID [facility] Last Admin: 03/31/19 23:45 Dose: 10 ml Documented by: Sodium Chloride (Sodium Chloride Flush Syringe 10 Ml) 10 ml IV PRN PRN PRN Reason: LINE FLUSH Exam - Constitutional Vitals: Temp Pulse Resp BP Pulse Ox 98.2 F 76 22 156/68 99 04/01/19 02:03 04/01/19 02:03 04/01/19 02:03 04/01/19 02:03 04/01/19 02:03 General appearance: Present: no acute distress, well-nourished - EENT Eyes: Present: PERRL ENT: hearing intact, clear oral mucosa - Neck Neck: Present: supple, normal ROM - Respiratory Respiratory effort: normal Respiratory: bilateral: CTA, rales (Scattered) - Cardiovascular Heart rate: 85 Rhythm: regular Heart Sounds: Present: S1 & S2. Absent: rub, click - Extremities Extremities: no ischemia, pulses intact, pulses symmetrical, No edema Peripheral Pulses: within normal limits - Abdominal General gastrointestinal: Present: soft, non-tender, non-distended, normal bowel sounds Female genitourinary: Present: normal - Integumentary Integumentary: Present: clear, warm, dry - Musculoskeletal Musculoskeletal: gait normal, strength equal bilaterally - Psychiatric Psychiatric: appropriate mood/affect, intact judgment & insight - Neurologic Neurologic: CNII-XII intact, moves all extremities Results - Labs CBC & Chem 7: 03/31/19 12:30 03/31/19 12:30 Labs: Laboratory Last Values WBC 6.6 K/mm3 (4.5-11.0) 03/31/19 12:30 RBC 3.66 M/mm3 (3.65-5.03) 03/31/19 12:30 Hgb 11.0 gm/dl (10.1-14.3) 03/31/19 12:30 Hct 34.5 % (30.3-42.9) 03/31/19 12:30 MCV 94 fl (79-97) 03/31/19 12:30 MCH 30 pg (28-32) 03/31/19 12:30 MCHC 32 % (30-34) 03/31/19 12:30 RDW 16.7 % (13.2-15.2) H 03/31/19 12:30 Plt Count 170 K/mm3 (140-440) 03/31/19 12:30 Lymph % (Auto) 7.7 % (13.4-35.0) L 03/31/19 12:30 [place] % (Auto) 5.9 % (0.0-7.3) 03/31/19 12:30 Eos % (Auto) 0.6 % (0.0-4.3) 03/31/19 12:30 Baso % (Auto) 0.7 % (0.0-1.8) 03/31/19 12:30 Lymph # 0.5 K/mm3 (1.2-5.4) L 03/31/19 12:30 [place] # 0.4 K/mm3 (0.0-0.8) 03/31/19 12:30 Eos # 0.0 K/mm3 (0.0-0.4) 03/31/19 12:30 Baso # 0.0 K/mm3 (0.0-0.1) 03/31/19 12:30 Seg Neutrophils % 85.1 % (40.0-70.0) H 03/31/19 12:30 Seg Neutrophils # 5.6 K/mm3 (1.8-7.7) 03/31/19 12:30 PT 13.5 Sec. (12.2-14.9) 03/31/19 12:30 INR 1.06 (0.87-1.13) 03/31/19 12:30 APTT 29.5 Sec. (24.2-36.6) 03/31/19 12:30 Sodium 141 mmol/L (137-145) 03/31/19 12:30 Potassium 4.9 mmol/L (3.6-5.0) 03/31/19 12:30 Chloride 96.6 mmol/L (98-107) L 03/31/19 12:30 Carbon Dioxide 25 mmol/L (22-30) 03/31/19 12:30 24 mmol/L 03/31/19 12:30 BUN 62 mg/dL (7-17) H 03/31/19 12:30 8.2 mg/dL (0.7-1.2) H 03/31/19 12:30 Estimated GFR 6 ml/min 03/31/19 12:30 8 % 03/31/19 12:30 Glucose 99 mg/dL (65-100) 03/31/19 12:30 < 4.2 % (4-6) 03/31/19 12:30 Calcium 8.5 mg/dL (8.4-10.2) 03/31/19 12:30 0.50 mg/dL (0.1-1.2) 03/31/19 12:30 AST 22 units/L (5-40) 03/31/19 12:30 ALT 14 units/L (7-56) 03/31/19 12:30 101 units/L (35-129) 03/31/19 12:30 0.027 ng/mL (0.00-0.029) 03/31/19 14:55 NT-Pro-B Natriuret Pep 15875 pg/mL (0-900) H 03/31/19 12:30 7.7 g/dL (6.3-8.2) 03/31/19 12:30 4.2 g/dL (3.9-5) 03/31/19 12:30 1.2 % 03/31/19 12:30 Yellow (Yellow) 03/31/19 23:59 Clear (Clear) 03/31/19 23:59 8.0 (5.0-7.0) H 03/31/19 23:59 Ur Specific [place] 1.012 (1.003-1.030) 03/31/19 23:59 100 mg/dl mg/dL (Negative) 03/31/19 23:59 50 mg/dL (Negative) 03/31/19 23:59 Neg mg/dL (Negative) 03/31/19 23:59 Neg (Negative) 03/31/19 23:59 Neg (Negative) 03/31/19 23:59 Neg (Negative) 03/31/19 23:59 < 2.0 mg/dL (<2.0) 03/31/19 23:59 Ur Leukocyte Esterase Tr (Negative) 03/31/19 23:59 2.0 /HPF (0.0-6.0) 03/31/19 23:59 1.0 /HPF (0.0-6.0) 03/31/19 23:59 U Epithel Cells (Auto) 3.0 /HPF (0-13.0) 03/31/19 23:59 1+ /HPF (Negative) 03/31/19 23:59 Few /HPF 03/31/19 23:59 Short CBC 03/31/19 Range/Units 12:30 WBC 6.6 (4.5-11.0) K/mm3 Hgb 11.0 (10.1-14.3) gm/dl Hct 34.5 (30.3-42.9) % Plt Count 170 (140-440) K/mm3 BMP 03/31/19 12:30 Sodium 141 Potassium 4.9 Chloride 96.6 L Carbon Dioxide 25 BUN 62 H Creatinine 8.2 H Glucose 99 Calcium 8.5 Cardiac Enzymes 03/31/19 03/31/19 Range/Units 12:30 14:55 Troponin T 0.024 0.027 (0.00-0.029) ng/mL Liver Function 03/31/19 Range/Units 12:30 Total Bilirubin 0.50 (0.1-1.2) mg/dL AST 22 (5-40) units/L ALT 14 (7-56) units/L Alkaline Phosphatase 101 (35-129) units/L Albumin 4.2 (3.9-5) g/dL Urine 03/31/19 Range/Units 23:59 Urine Color Yellow (Yellow) Urine pH 8.0 H (5.0-7.0) Ur Specific [place] 1.012 (1.003-1.030) Urine Protein 100 mg/dl (Negative) mg/dL Urine Glucose (UA) 50 (Negative) mg/dL - Imaging and Cardiology EKG: report reviewed (NSR 85/min PVC's) Chest x-ray: report reviewed (Pulmonary venous congestion and cardiomegaly) Assessment and Plan Advance Directives: Yes (Full code) VTE prophylaxis?: Chemical Plan of care discussed with patient/family: Yes - Patient Problems (1) Pulmonary edema Current Visit: Yes Status: Acute Qualifiers: Chronicity: acute Qualified Code(s): J81.0 - Acute pulmonary edema Plan to address problem: Sec to volume overload Excessive fluid consumption over the week end. Emergent HD for increased ultrafiltration. (2) ESRD needing dialysis Current Visit: Yes Status: Chronic Plan to address problem: Nephrology consulted for HD (3) GERD (gastroesophageal reflux disease) Current Visit: No Status: Chronic Qualifiers: Esophagitis presence: without esophagitis Qualified Code(s): K21.9 - Ga stro-esophageal reflux disease without esophagitis Plan to address problem: COnt PPi's (4) HLD (hyperlipidemia) Current Visit: No Status: Chronic Qualifiers: Hyperlipidemia type: mixed hyperlipidemia Qualified Code(s): E78.2 - Mixed hyperlipidemia Plan to address problem: Cont statins (5) HTN (hypertension) Current Visit: No Status: Chronic Qualifiers: Hypertension type: essential hypertension Qualified Code(s): I10 - Essential (primary) hypertension Plan to address problem: Cont antihypertensives (6) Hypothyroidism Current Visit: No Status: Chronic Qualifiers: Hypothyroidism type: acquired Qualified Code(s): E03.9 - Hypothyroidism, unspecified Plan to address problem: Cont synthyroid Check TSH (7) Gout Current Visit: Yes Status: Inactive Qualifiers: Gout site: unspecified site Chronicity: unspecified Plan to address problem: Cont Allopurinol for prevention (8) DVT prophylaxis Current Visit: No Status: Acute Plan to address problem: On Heparin and GI prophylaxis
[2019-04-01 05:25] LABS: Albumin 4.3 g/dL (3.9-5); Calcium 8.6 mg/dL (8.4-10.2)
[2019-04-01 05:34] LABS: Basophils # (Auto) 0.1 K/mm3 (0.0-0.1); Basophils % (Auto) 0.9 % (0.0-1.8); Eosinophils # (Auto) 0.1 K/mm3 (0.0-0.4); Eosinophils % (Auto) 1.8 % (0.0-4.3); Hematocrit 34.3 % (30.3-42.9); Lymphocytes % (Auto) 14.6 % (13.4-35.0); Mean Corpuscular HGB Conc 32 % (30-34); Mean Corpuscular Volume 92 fl (79-97); Monocytes # (Auto) 0.6 K/mm3 (0.0-0.8); Monocytes % (Auto) 8.2 % (0.0-7.3); Platelet Count 181 K/mm3 (140-440); Red Blood Count 3.73 M/mm3 (3.65-5.03); Red Cell Distribution Width 16.4 % (13.2-15.2)
--- NOTE | 2019-04-01 08:45 | Consultation ---
History of Present Illness - History of Present Illness My assessment and plan are as follows End-stage renal disease: Patient will continue with hemodialysis treatment on MWF scheduled as tolerated, monitor dialysis related labs She has received hemodialysis treatment yesterday Will order for UF today 2-3 KG Patient does appear to have shortness of breath and fluid overload History of congestive heart failure/ patient was advised to comply with fluid and sodium Anemia and end-stage renal disease: To monitor and follow, erythropoietin as required goal hemoglobin dialysis patients usually occurring 10 and 12, we will follow Secondary hyperparathyroidism: Monitor phosphorus and PTH periodically and adjust binders as needed Diet and nutrition: Fluid restriction 1200 mL per day, high-protein diet may benefit from nutrition consultation , patient is protein intake should be 1.5 g per KG body weight Hypertension and volume continue to monitor, educated about fluid restriction sodium restriction Patient does exhibit good understanding of the renal related issues Patient has been adequately counseled and educated regarding all the renal related issues Renal care plan was discussed with patient Prognosis remains guarded at this time, due to dialysis status We'll continue to follow and make recommendation from renal standpoint She have any questions please feel free to contact me at [phone] Winston Calderon M.D. [facility] [address] [facility] [place] [address] History of presenting illness Patient is a 73-year-old -[place] female who has been admitted here with shortness of breath, she is normally dialyzing on Sunday and Sunday and has received her last dialysis treatment on Sunday patient has been noted to have shortness of breath with exertion. She is not very compliant with her fluid and sodium intake current dialysis access has been working well She has no complaints of any fever or chills has mild nonproductive cough, due this admission her hemoglobin is 11.0 normal platelet count 170,000 potassium 4.9B UN 62 creatinine 8.2 Was ordered to receive dialysis yesterday Consultation has been placed for management of end-stage renal disease Past medical history significant for ESRD Hypertension Congestive heart failure Anemia and renal failure Secondary hyperparathyroidism Gout hyperuricemia Hypothyroidism hyperlipidemia Gastroesophageal reflux disorder Allergies none Home medication present medication: Reviewed Social history/family history: Reviewed Review of systems positive for shortness of breath, patient also requires shiela lysis, complaints of swelling of both lower extremity Noted to be noncompliant with diet salt fluid All other review of systems negative Physical examination: General: No acute distress HEENT: Oral mucosa moist no icterus, no facial swelling Neck: Supple no thyromegaly no lymphadenopathy no JVD Chest: Bilateral few basilar crackles and wheezes Heart: Regular rate and rhythm S1-S2 heard no S3-S4 Abdomen: Soft nontender no organomegaly no masses palpable no renal bruit no suprapubic masses no CVA tenderness Dermatology: No skin rashes noted Extremity: Less than 1+ peripheral edema, dry skin no petechial rashes Musculoskeletal: No joint effusion noted in knee and ankle area Psych: No evidence of agitation and aggression noted Neurological: Alert awake follows commands no tremors no myoclonus Back: No CVA tenderness Medications and Allergies Allergies Allergy/AdvReac Type Severity Reaction Status Date / Time No Known Allergies Allergy Verified 03/08/18 12:44 Home Medications Medication Instructions Recorded Confirmed Last Taken Type Omeprazole 40 mg PO DAILY 03/08/18 03/31/19 03/30/19 History Pravastatin Sodium [Pravastatin] 10 mg PO QHS 03/08/18 03/31/19 03/30/19 History amLODIPine [Norvasc] 10 mg PO DAILY 03/08/18 03/31/19 03/30/19 History hydrALAZINE [Apresoline TAB] 100 mg PO TID 03/08/18 03/31/19 03/30/19 History HYDROcodone/APAP 7.5-325 [[place] 1 each PO Q6HR PRN #40 tablet 03/12/18 03/31/19 03/30/19 Rx 7.5-325 mg TAB] Acetaminophen 500 mg PO Q8H PRN #20 tablet 06/09/18 03/31/19 03/30/19 Rx Allopurinol [Zyloprim] 100 mg PO DAILY 03/04/19 03/31/19 03/30/19 History Levothyroxine [Synthroid] 25 mcg PO DAILY 03/04/19 03/31/19 03/30/19 History Sevelamer HCl [Renagel] 800 mg PO AC 03/04/19 03/31/19 03/30/19 History Active Meds: Active Medications Acetaminophen (Tylenol) 650 mg PO Q4H PRN PRN Reason: Pain MILD(1-3)/Fever >100.5/VILLALBA Last Admin: 03/31/19 23:44 Dose: 650 mg Documented by: Acetaminophen (Tylenol) 500 mg PO Q8H PRN PRN Reason: pain Acetaminophen/Hydrocodone Bitart ([place] 7.5/325) 1 each PO Q6HR PRN PRN Reason: Pain Allopurinol (Zyloprim) 100 mg PO DAILY [facility] Last Admin: 03/31/19 17:55 Dose: Not Given Documented by: Amlodipine Besylate (Norvasc) 10 mg PO DAILY [facility] Last Admin: 03/31/19 17:54 Dose: 10 mg Documented by: Heparin Sodium (Porcine) (Heparin) 5,000 unit SUB-Q Q12HR [facility] Last Admin: 03/31/19 23:45 Dose: 5,000 unit Documented by: Hydralazine HCl (Apresoline) 100 mg PO TID [facility] Last Admin: 03/31/19 23:44 Dose: 100 mg Documented by: Hydromorphone HCl (Dilaudid) 0.5 mg IV Q3H PRN PRN Reason: Pain , Severe (7-10) Sodium Chloride (Nacl 0.9%) 100 mls @ 999 mls/hr IV SHIELA PRN PRN Reason: Hypotension Ibuprofen (Ibuprofen) 600 mg PO Q6H PRN PRN Reason: Pain, Mild (1-3) Levothyroxine Sodium (Synthroid) 25 mcg PO DAILY [facility] Ondansetron HCl (Zofran) 4 mg IV Q8H PRN PRN Reason: Nausea And Vomiting Pantoprazole Sodium (Protonix) 40 mg PO DAILY [facility] Pravastatin Sodium (Pravachol) 10 mg PO QHS [facility] Last Admin: 03/31/19 23:44 Dose: 10 mg Documented by: Sevelamer Carbonate (Renvela) 800 mg PO AC [facility] Sodium Chloride (Sodium Chloride Flush Syringe 10 Ml) 10 ml IV BID [facility] Last Admin: 03/31/19 23:45 Dose: 10 ml Documented by: Sodium Chloride (Sodium Chloride Flush Syringe 10 Ml) 10 ml IV PRN PRN PRN Reason: LINE FLUSH Exam - Vital Signs Vital signs: Vital Signs Temp Pulse Resp BP Pulse Ox 97.7 F 76 22 209/109 96 03/31/19 11:27 03/31/19 11:27 03/31/19 11:27 03/31/19 11:27 03/31/19 11:27 Results - Lab Results 04/01/19 04:30 04/01/19 04:30 Most recent lab results Calcium 8.6 mg/dL (8.4-10.2) 04/01/19 04:30
[2019-04-01] MEDS: PROTONIX PO SCH (09:44)
[2019-04-01] MEDS: ZYLOPRIM PO SCH (09:44)
[2019-04-01] MEDS: HEPARIN SUB-Q SCH ×2 (09:45→22:32)
[2019-04-01] MEDS: RENVELA PO SCH ×3 (09:45→18:27)
[2019-04-01] MEDS: APRESOLINE PO SCH ×3 (09:45→21:43)
[2019-04-01] MEDS: NORVASC PO SCH (09:45)
[2019-04-01] MEDS: SYNTHROID PO SCH (09:45)
[2019-04-01] MEDS: SODIUM CHLORIDE FLUSH SYRINGE 10 ML IV SCH (09:46)
--- NOTE | 2019-04-01 14:24 | Progress Note ---
Assessment and Plan Assessment and plan: Patient is a 73-year-old woman with history of CHF, ESRD on Hemodialysis MWF, chronic hypoxic respiratory failure on 2 liters of home O2 and COPD presents with shortness of breath. She was treated with 4 liters of O2 and hemodialysis which improved her symptoms. (1) Pulmonary edema Current Visit: Yes Status: Acute Qualifiers: Chronicity: acute Qualified Code(s): J81.0 - Acute pulmonary edema Plan to address problem: Sec to volume overload Excessive fluid consumption over the week end. Emergent HD for increased ultrafiltration. (2) ESRD needing dialysis Current Visit: Yes Status: Chronic Plan to address problem: Nephrology consulted for HD (3) GERD (gastroesophageal reflux disease) Current Visit: No Status: Chronic Qualifiers: Esophagitis presence: without esophagitis Qualified Code(s): K21.9 - Gastro-esophageal reflux disease without esophagitis Plan to address problem: COnt PPi's (4) HLD (hyperlipidemia) Current Visit: No Status: Chronic Qualifiers: Hyperlipidemia type: mixed hyperlipidemia Qualified Code(s): E78.2 - Mixed hyperlipidemia Plan to address problem: Cont statins (5) HTN (hypertension) Current Visit: No Status: Chronic Qualifiers: Hypertension type: essential hypertension Qualified Code(s): I10 - Essential (primary) hypertension Plan to address problem: Cont antihypertensives (6) Hypothyroidism Current Visit: No Status: Chronic Qualifiers: Hypothyroidism type: acquired Qualified Code(s): E03.9 - Hypothyroidism, unspecified Plan to address problem: Cont synthyroid Check TSH (7) Gout Current Visit: Yes Status: Inactive Qualifiers: Gout site: unspecified site Chronicity: unspecified Plan to address problem: Cont Allopurinol for prevention (8) DVT prophylaxis Current Visit: No Status: Acute Plan to address problem: On Heparin and GI prophylaxis History Interval history: Patient was seen and examined. Follow-up on current diagnosis of SOB. No overnight events reported to me. Patient denies any chest pain, shortness breath, nausea/vomiting or severe headaches. Imaging, nursing note, chart, labs and old chart reviewed. Discussed with patient. Hospitalist Physical - Physical exam Narrative exam: Gen: WDWN, NAD, Awake, Alert, Orientated HEENT: NCAT, EOMI, PERRL, OP Clear Neck: supple, no adenopathy, no thyromegaly, no JVD CVS/Heart: RRR, normal S1S2, pulses present bilaterally Chest/Lungs: diminished Symmetrical chest expansion, good air entry bilaterally GI/Abdomen: soft, NTND, good bowel sounds, no guarding or rebound /Bladder: no suprapubic tenderness, no CVA or paraspinal tenderness Extermity/Skin: +ble edema, no obvious rash MSK: FROM x 4 Neuro: CN 2-12 grossly intact, no new focal deficits Psych: calm - Constitutional Vitals: Temp Pulse Resp BP Pulse Ox 97.9 F 89 19 167/83 100 04/01/19 13:59 04/01/19 13:32 04/01/19 13:32 04/01/19 13:32 04/01/19 13:32 General appearance: Present: no acute distress, well-nourished Results - Labs CBC & Chem 7: 04/01/19 04:30 04/01/19 04:30 Labs: Laboratory Last Values WBC 6.9 K/mm3 (4.5-11.0) 04/01/19 04:30 RBC 3.73 M/mm3 (3.65-5.03) 04/01/19 04:30 Hgb 11.0 gm/dl (10.1-14.3) 04/01/19 04:30 Hct 34.3 % (30.3-42.9) 04/01/19 04:30 MCV 92 fl (79-97) 04/01/19 04:30 MCH 30 pg (28-32) 04/01/19 04:30 MCHC 32 % (30-34) 04/01/19 04:30 RDW 16.4 % (13.2-15.2) H 04/01/19 04:30 Plt Count 181 K/mm3 (140-440) 04/01/19 04:30 Lymph % (Auto) 14.6 % (13.4-35.0) 04/01/19 04:30 Hill % (Auto) 8.2 % (0.0-7.3) H 04/01/19 04:30 Eos % (Auto) 1.8 % (0.0-4.3) 04/01/19 04:30 Baso % (Auto) 0.9 % (0.0-1.8) 04/01/19 04:30 Lymph # 1.0 K/mm3 (1.2-5.4) L 04/01/19 04:30 Hill # 0.6 K/mm3 (0.0-0.8) 04/01/19 04:30 Eos # 0.1 K/mm3 (0.0-0.4) 04/01/19 04:30 Baso # 0.1 K/mm3 (0.0-0.1) 04/01/19 04:30 Seg Neutrophils % 74.5 % (40.0-70.0) H 04/01/19 04:30 Seg Neutrophils # 5.1 K/mm3 (1.8-7.7) 04/01/19 04:30 PT 13.5 Sec. (12.2-14.9) 03/31/19 12:30 INR 1.06 (0.87-1.13) 03/31/19 12:30 APTT 29.5 Sec. (24.2-36.6) 03/31/19 12:30 Sodium 140 mmol/L (137-145) 04/01/19 04:30 Potassium 4.2 mmol/L (3.6-5.0) 04/01/19 04:30 Chloride 96.7 mmol/L (98-107) L 04/01/19 04:30 Carbon Dioxide 27 mmol/L (22-30) 04/01/19 04:30 21 mmol/L 04/01/19 04:30 BUN 31 mg/dL (7-17) H 04/01/19 04:30 5.1 mg/dL (0.7-1.2) H 04/01/19 04:30 Estimated GFR 10 ml/min 04/01/19 04:30 6 % 04/01/19 04:30 Glucose 91 mg/dL (65-100) 04/01/19 04:30 < 4.2 % (4-6) 03/31/19 12:30 Calcium 8.6 mg/dL (8.4-10.2) 04/01/19 04:30 0.40 mg/dL (0.1-1.2) 04/01/19 04:30 AST 26 units/L (5-40) 04/01/19 04:30 ALT 14 units/L (7-56) 04/01/19 04:30 93 units/L (35-129) 04/01/19 04:30 0.027 ng/mL (0.00-0.029) 03/31/19 14:55 NT-Pro-B Natriuret Pep 94853 pg/mL (0-900) H 03/31/19 12:30 7.6 g/dL (6.3-8.2) 04/01/19 04:30 4.3 g/dL (3.9-5) 04/01/19 04:30 1.3 % 04/01/19 04:30 TSH 2.250 mlU/mL (0.270-4.200) 04/01/19 05:56 Yellow (Yellow) 03/31/19 23:59 Clear (Clear) 03/31/19 23:59 8.0 (5.0-7.0) H 03/31/19 23:59 Ur Specific [place] 1.012 (1.003-1.030) 03/31/19 23:59 100 mg/dl mg/dL (Negative) 03/31/19 23:59 50 mg/dL (Negative) 03/31/19 23:59 Neg mg/dL (Negative) 03/31/19 23:59 Neg (Negative) 03/31/19 23:59 Neg (Negative) 03/31/19 23:59 Neg (Negative) 03/31/19 23:59 < 2.0 mg/dL (<2.0) 03/31/19 23:59 Ur Leukocyte Esterase Tr (Negative) 03/31/19 23:59 2.0 /HPF (0.0-6.0) 03/31/19 23:59 1.0 /HPF (0.0-6.0) 03/31/19 23:59 U Epithel Cells (Auto) 3.0 /HPF (0-13.0) 03/31/19 23:59 1+ /HPF (Negative) 03/31/19 23:59 Few /HPF 03/31/19 23:59 Active Medications - Current Medications Current Medications: Generic Name Dose Route Start Last Admin Trade Name Freq PRN Reason Stop Dose Admin Acetaminophen 650 mg 03/31/19 17:25 03/31/19 23:44 Tylenol PO 650 mg Q4H PRN Administration Pain MILD(1-3)/Fever >100.5/VILLALBA Acetaminophen 500 mg 03/31/19 17:27 Tylenol PO Q8H PRN pain Acetaminophen/Hydrocodone Bitart 1 each 03/31/19 17:27 [place] 7.5/325 PO Q6HR PRN Pain Allopurinol 100 mg 03/31/19 18:00 04/01/19 09:44 Zyloprim PO 100 mg DAILY LORRIE Administration Amlodipine Besylate 10 mg 03/31/19 18:00 04/01/19 09:45 Norvasc PO 10 mg DAILY LORRIE Administration Heparin Sodium (Porcine) 5,000 unit 03/31/19 22:00 04/01/19 09:45 Heparin SUB-Q 5,000 unit Q12HR LORRIE Administration Hydralazine HCl 100 mg 03/31/19 20:00 04/01/19 13:50 Apresoline PO 100 mg TID LORRIE Administration Hydromorphone HCl 0.5 mg 03/31/19 17:25 Dilaudid IV Q3H PRN Pain , Severe (7-10) Sodium Chloride 100 mls @ 999 mls/hr 03/31/19 15:28 Nacl 0.9% IV SHIELA PRN Hypotension Ibuprofen 600 mg 03/31/19 17:25 Ibuprofen PO Q6H PRN Pain, Mild (1-3) Levothyroxine Sodium 25 mcg 04/01/19 10:00 04/01/19 09:45 Synthroid PO 25 mcg DAILY [facility] Administration Ondansetron HCl 4 mg 03/31/19 17:25 Zofran IV Q8H PRN Nausea And Vomiting Pantoprazole Sodium 40 mg 04/01/19 10:00 04/01/19 09:44 Protonix PO 40 mg DAILY [facility] Administration Pravastatin Sodium 10 mg 03/31/19 22:00 03/31/19 23:44 Pravachol PO 10 mg QHS LORRIE Administration Sevelamer Carbonate 800 mg 04/01/19 07:30 04/01/19 13:50 Renvela PO 800 mg AC LORRIE Administration Sodium Chloride 10 ml 03/31/19 22:00 04/01/19 09:46 Sodium Chloride Flush Syringe 10 Ml IV 10 ml BID LORRIE Administration Sodium Chloride 10 ml 03/31/19 17:25 Sodium Chloride Flush Syringe 10 Ml IV PRN PRN LINE FLUSH Nutrition/Malnutrition Assess - Dietary Evaluation Nutrition/Malnutrition Findings: Nutrition Notes Start: 04/01/19 09:43 Freq: Status: Active Protocol: Document 04/01/19 09:44 DW (Rec: 04/01/19 10:45 DW [id number]) Co-Sign 04/01/19 09:44 LP Nutrition Notes Need for 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 Pt stated that she drinks a lot of fluid but knows that she should limit her fluids to 32oz/day. She also stated that she tends to splurge on the weekends while on her dialysis break and goes out to eat with friends after anglican. Pt stated that she feels cramps on Sun dialyisis treatment d/t weekend splurge. #1 Nutrition Diagnosis Limited adherence to nutrition -related recommendations Etiology fluid accumulation As Evidenced by Signs and Symptoms drinking fluids when she's hungry instead of eating whole foods and noncompliance on the weekends Is patient on ventilator? No Is Patient Ambulatory and/or Out of Bed Yes REE-(Hardin-St. Jeor-ambulatory/OOB) [ 1874.600 NUTR.[id number]] Calculation Used for Recommendations Hardin-St Jeor Additional Notes PRO needs: 96-115g (1.0-1.2g/ kg) Fluid needs: 6756-0349 mL Nutrition Intervention Change Diet Order: Continue current diet Teaching Recipient Patient Learning Readiness Good Teaching Methods Discussion Response to Teaching Verbalize understanding Barriers to Learning No Barriers RD phone number provided Yes Patient aware of follow up options Yes Revisit per MD consult or patient Sign Off request:
[2019-04-01] MEDS ORDERED: NACL 0.9 (PRIMING MACHINE ONLY DIALYSIS) MC ONE (20:59)
[2019-04-01] MEDS: PRAVACHOL PO SCH (22:31)
[2019-04-02] MEDS: SODIUM CHLORIDE FLUSH SYRINGE 10 ML IV SCH ×2 (00:37→16:04)
--- NOTE | 2019-04-02 08:51 | Progress Note ---
Subjective Interval history: Patient was seen today for follow-up on multiple renal related issues Events of this hospitalization were noted She is feeling much better with hemodialysis as well as ultrafiltration yesterday Admits being noncompliant with fluid sodium in diet Interdisciplinary notes were also reviewed Vitals intake output medications were reviewed Past medical history: Reviewed Family, social history: Reviewed Allergies: Reviewed Physical examination General: No acute distress Vitals: Reviewed HEENT: Oral mucosa moist no icterus Neck: Supple no thyromegaly nodular mass or JVD Chest: Clear to auscultation anteriorly Heart: Regular rate and rhythm S1-S2 heard no S3-S4 Abdomen: Soft nontender no suprapubic masses no organomegaly Extremity: Dry skin less than 1+ edema Psych: No evidence of any agitation and aggression noted Derm: No petechial rash Assessment and plan: End-stage renal disease: Patient will continue with hemodialysis treatment on MWF scheduled as tolerated, monitor dialysis related labs I will order for dialysis today if patient is doing well postdialysis she can be considered for discharge Patient admits being noncompliant with fluid sodium diet: Adequately counseled and educated Anemia and end-stage renal disease: To monitor and follow, erythropoietin as required goal hemoglobin dialysis patients usually occurring 10 and 12, we will follow Secondary hyperparathyroidism: Monitor phosphorus and PTH periodically and adjust binders as needed Diet and nutrition: Fluid restriction 1200 mL per day, high-protein diet may benefit from nutrition consultation , patient is protein intake should be 1.5 g per KG body weight Hypertension and volume continue to monitor, educated about fluid restriction sodium restriction Patient does exhibit good understanding of the renal related issues All renal related issues were discussed with the patient, patient does exhibit good understanding, lab results were also discussed with patient in simple Uzbek Prognosis: Guarded We'll continue to follow and make recommendation from renal standpoint Objective - Vital Signs Vital signs: Vital Signs - 12hr 04/01/19 04/02/19 22:43 02:25 Temperature 98.6 F Pulse Rate 81 Respiratory 20 Rate Blood Pressure 155/71 O2 Sat by Pulse 98 98 Oximetry - Lab 04/01/19 04:30 04/01/19 04:30 Most recent lab results Calcium 8.6 mg/dL (8.4-10.2) 04/01/19 04:30 Medications & Allergies - Medications Allergies/Adverse Reactions: Allergies No Known Allergies Allergy (Verified 03/08/18 12:44) Home Medications: Home Medications Medication Instructions Recorded Confirmed Last Taken Type Omeprazole 40 mg PO DAILY 03/08/18 03/31/19 03/30/19 History Pravastatin Sodium [Pravastatin] 10 mg PO QHS 03/08/18 03/31/19 03/30/19 History amLODIPine [Norvasc] 10 mg PO DAILY 03/08/18 03/31/19 03/30/19 History hydrALAZINE [Apresoline TAB] 100 mg PO TID 03/08/18 03/31/19 03/30/19 History HYDROcodone/APAP 7.5-325 [[place] 1 each PO Q6HR PRN #40 tablet 03/12/18 03/31/19 03/30/19 Rx 7.5-325 mg TAB] Acetaminophen 500 mg PO Q8H PRN #20 tablet 06/09/18 03/31/19 03/30/19 Rx Allopurinol [Zyloprim] 100 mg PO DAILY 03/04/19 03/31/19 03/30/19 History Levothyroxine [Synthroid] 25 mcg PO DAILY 03/04/19 03/31/19 03/30/19 History Sevelamer HCl [Renagel] 800 mg PO AC 03/04/19 03/31/19 03/30/19 History Active Medications: Generic Name Dose Route Start Last Admin Trade Name Freq PRN Reason Stop Dose Admin Acetaminophen 650 mg 03/31/19 17:25 03/31/19 23:44 Tylenol PO 650 mg Q4H PRN Administration Pain MILD(1-3)/Fever >100.5/VILLALBA Acetaminophen 500 mg 03/31/19 17:27 Tylenol PO Q8H PRN pain Acetaminophen/Hydrocodone Bitart 1 each 03/31/19 17:27 04/02/19 00:35 [place] 7.5/325 PO 1 each Q6HR PRN Administration Pain Allopurinol 100 mg 03/31/19 18:00 04/01/19 09:44 Zyloprim PO 100 mg DAILY LORRIE Administration Amlodipine Besylate 10 mg 03/31/19 18:00 04/01/19 09:45 Norvasc PO 10 mg DAILY [facility] Administration Heparin Sodium (Porcine) 5,000 unit 03/31/19 22:00 04/01/19 22:32 Heparin SUB-Q 5,000 unit Q12HR [facility]ORRIE Administration Hydralazine HCl 100 mg 03/31/19 20:00 04/01/19 21:43 Apresoline PO 100 mg TID [facility] Administration Hydromorphone HCl 0.5 mg 03/31/19 17:25 Dilaudid IV Q3H PRN Pain , Severe (7-10) Sodium Chloride 100 mls @ 999 mls/hr 03/31/19 15:28 Nacl 0.9% IV SHIELA PRN Hypotension Sodium Chloride 100 mls @ 999 mls/hr 04/02/19 08:49 Nacl 0.9% IV SHIELA PRN Hypotension Ibuprofen 600 mg 03/31/19 17:25 Ibuprofen PO Q6H PRN Pain, Mild (1-3) Levothyroxine Sodium 25 mcg 04/01/19 10:00 04/01/19 09:45 Synthroid PO 25 mcg DAILY [facility] Administration Ondansetron HCl 4 mg 03/31/19 17:25 Zofran IV Q8H PRN Nausea And Vomiting Pantoprazole Sodium 40 mg 04/01/19 10:00 04/01/19 09:44 Protonix PO 40 mg DAILY [facility] Administration Pravastatin Sodium 10 mg 03/31/19 22:00 04/01/19 22:31 Pravachol PO 10 mg QHS [facility] Administration Sevelamer Carbonate 800 mg 04/01/19 07:30 04/01/19 18:27 Renvela PO Not Given AC LORRIE Sodium Chloride 10 ml 03/31/19 22:00 04/02/19 00:37 Sodium Chloride Flush Syringe 10 Ml IV 10 ml BID [facility] Administration Sodium Chloride 10 ml 03/31/19 17:25 Sodium Chloride Flush Syringe 10 Ml IV PRN PRN LINE FLUSH
[2019-04-02] MEDS ORDERED: NACL 0.9% 100 ML IV PRN (09:00)
[2019-04-02] MEDS: RENVELA PO SCH ×2 (09:00→16:04)
[2019-04-02] MEDS: APRESOLINE PO SCH ×2 (09:14→15:59)
--- NOTE | 2019-04-02 12:13 | Discharge Summary ---
Providers - Providers Date of Admission: 03/31/19 17:25 Date of discharge: 04/02/19 Attending physician: PO MCDOWELL 03/31/19 15:14 Consult to Physician [CONS] Stat Comment: called answering service/vanesa Consulting Provider: RASHAD SELF Physician Instructions: Reason For Exam: dialysis 04/01/19 08:50 Physical Therapy Evaluation and Treat [CONS] Routine Comment: Reason For Exam: Weakness Primary care physician: ARIC WEEKS Hospitalization Condition: Stable Hospital course: Patient is a 73-year-old woman with history of CHF, ESRD on Hemodialysis MWF, chronic hypoxic respiratory failure on 2 liters of home O2 and COPD presents with shortness of breath. She was treated with 4 liters of O2 and hemodialysis which improved her symptoms. She is back to 2 liters of O2. Discharge Diagnoses: -Pulmonary edema -Acute on chronic hypoxic respiratory failure, poa -ESRD needing dialysis -GERD (gastroesophageal reflux disease) -HLD (hyperlipidemia) -HTN (hypertension) -AOCD -Hypothyroidism -Gout Disposition: TO HOME OR SELFCARE Time spent for discharge: 32 mintues Core Measure Documentation - Palliative Care Palliative Care/ Comfort Measures: Not Applicable - Core Measures Any of the following diagnoses?: none - VTE Discharge Requirements Deep Vein Thrombosis/Pulmonary Embolism Present on Admission: No Has pt received <5 days of overlap therapy or INR<2.0: No Anticoagulant overlap therapy prescribed at discharge: No Contraindication No Overlap Therapy order at DC: Not Indicated Exam - Physical Exam Narrative exam: Gen: WDWN, NAD, Awake, Alert, Orientated HEENT: NCAT, EOMI, PERRL, OP Clear Neck: supple, no adenopathy, no thyromegaly, no JVD CVS/Heart: RRR, normal S1S2, pulses present bilaterally Chest/Lungs: diminished Symmetrical chest expansion, good air entry bilaterally GI/Abdomen: soft, NTND, good bowel sounds, no guarding or rebound /Bladder: no suprapubic tenderness, no CVA or paraspinal tenderness Extermity/Skin: +ble edema, no obvious rash MSK: FROM x 4 Neuro: CN 2-12 grossly intact, no new focal deficits Psych: calm - Constitutional Vitals: Temp Pulse Resp BP Pulse Ox 98.3 F 93 H 18 110/60 99 04/02/19 09:40 04/02/19 11:15 04/02/19 09:40 04/02/19 11:15 04/02/19 09:40 Plan Activity: other (no strenous activity) Diet: renal Special Instructions: record daily weights Follow up with: ARIC WEEKS MD [Primary Care Provider] - 7 Days RASHAD SELF MD [Staff Physician] - 7 Days
[2019-04-02] MEDS ORDERED: NACL 0.9 (PRIMING MACHINE ONLY DIALYSIS) MC ONE (12:38)
[2019-04-02 14:59] VITALS: BP 149/65
[2019-04-02] MEDS: HEPARIN SUB-Q SCH (15:59)
[2019-04-02] MEDS: ZYLOPRIM PO SCH (15:59)
[2019-04-02] MEDS: NORVASC PO SCH (15:59)
[2019-04-02] MEDS: PROTONIX PO SCH (16:00)
[2019-04-02] MEDS: SYNTHROID PO SCH (16:00)
== END 2019-04-02 16:21 | disposition home or self-care (01) | DRG 291 ==
LOC: ED 11:19 → 2B-ACE 17:25
PROVIDERS: ADMIT Internal Medicine; ATTEND Internal Medicine
PROC: 5A1D70Z Performance of Urinary Filtration, Intermittent, Less than 6 Hours Per Day (ICD-10-PCS; principal; 2019-03-31)
PROC: 5A1D70Z Performance of Urinary Filtration, Intermittent, Less than 6 Hours Per Day (ICD-10-PCS; 2019-04-01)
PROC: 5A1D70Z Performance of Urinary Filtration, Intermittent, Less than 6 Hours Per Day (ICD-10-PCS; 2019-04-02)
DX: I13.2 Hypertensive heart and chronic kidney disease with heart failure and with stage 5 chronic kidney disease, or end stage renal disease (principal); J96.21 Acute and chronic respiratory failure with hypoxia; N18.6 End stage renal disease; N25.81 Secondary hyperparathyroidism of renal origin; J44.9 Chronic obstructive pulmonary disease, unspecified; K21.9 Gastro-esophageal reflux disease without esophagitis; E78.2 Mixed hyperlipidemia; M19.90 Unspecified osteoarthritis, unspecified site; E03.9 Hypothyroidism, unspecified; M10.9 Gout, unspecified; D63.8 Anemia in other chronic diseases classified elsewhere; Z99.2 Dependence on renal dialysis; Z79.899 Other long term (current) drug therapy
CPT/HCPCS: 36415; 71046; 80053; 81001; 83036; 83880; 84443; 84484; 85025; 85610; 85730; 87116; 93005; 93010; 94760; G0378; A9270-GY; J1644; J3246; J7030

== ENCOUNTER 2020-01-31 00:01 | Emergency (ER) | payer MEDICARE ==
[2020-01-31 00:50] LABS: Basophils % (Auto) 0.8 % (0.0-1.8); Eosinophils # (Auto) 0.1 K/mm3 (0.0-0.4); Eosinophils % (Auto) 1.3 % (0.0-4.3); Hemoglobin 12.1 gm/dl (10.1-14.3); Lymphocytes # (Auto) 1.1 K/mm3 (1.2-5.4); Mean Corpuscular HGB Conc 32 % (30-34); Mean Corpuscular Volume 89 fl (79-97); Monocytes # (Auto) 0.6 K/mm3 (0.0-0.8); Monocytes % (Auto) 9.6 % (0.0-7.3); Platelet Count 168 K/mm3 (140-440); Red Blood Count 4.29 M/mm3 (3.65-5.03); Red Cell Distribution Width 17.2 % (13.2-15.2)
[2020-01-31 01:07] LABS: Calcium 9.3 mg/dL (8.4-10.2)
[2020-01-31 02:40] LABS: Alanine Aminotransferase 8 units/L (7-56); Albumin 4.4 g/dL (3.9-5)
[2020-01-31 02:50] LABS: Bilirubin,Direct < 0.2 mg/dL (0-0.2)
--- NOTE | 2020-01-31 03:16 | Emergency Department Report ---
HPI - General Chief Complaint: Extremity Injury, Lower Time Seen by Provider: 01/31/20 02:33 - HPI HPI: This is a 74-year-old female who presents to the emergency department with complaint of a 1 week history of bilateral foot and lower extremity swelling. Patient also has some discomfort to the calves. Patient has a past medical history of CHF, hypertension and end-stage renal disease on hemodialysis on Sunday/Sunday/Sunday. Her primary care physician is Dr. Keith Martinez and her county agricultural agent is Dr. Mahmood. She asked some of the staff at dialysis today regarding the lower extremity swelling and they told her to come to the emergency department to "rule out a blood clot." She denies any trauma, recent travel, recent immobility. She has not taken anything for symptoms prior to presentation today. ED Past Medical Hx - Past Medical History Previous Medical History?: Yes Hx Hypertension: Yes (X 20 YRS H/o CHF) Hx Congestive Heart Failure: Yes (6 MONTHS AGO - RESOLVED) Hx GERD: Yes Hx Renal Disease: Yes Hx Arthritis: Yes Hx Seizures: No Hx Asthma: No Hx COPD: No Hx HIV: No - Surgical History Past Surgical History?: Yes Hx Breast Surgery: Yes (1985 removed benign lump) - Social History Smoking Status: Current Every Day Smoker Substance Use Type: None - Medications Home Medications: Home Medications Medication Instructions Recorded Confirmed Last Taken Type Omeprazole 40 mg PO DAILY 03/08/18 03/31/19 03/30/19 History 40 mg Pravastatin Sodium [Pravastatin] 10 mg PO QHS 03/08/18 03/31/19 03/30/19 History 10 mg amLODIPine 10 mg PO DAILY 03/08/18 03/31/19 03/30/19 History 10 mg hydrALAZINE [Apresoline TAB] 100 mg PO TID 03/08/18 03/31/19 03/30/19 History 100 mg HYDROcodone/APAP 7.5-325 [[place] 1 each PO Q6HR PRN #40 tablet 03/12/18 03/31/19 03/30/19 Rx 7.5-325 mg TAB] Acetaminophen 500 mg PO Q8H PRN #20 tablet 06/09/18 03/31/19 03/30/19 Rx 500 mg Levothyroxine [Synthroid] 25 mcg PO DAILY 03/04/19 03/31/19 03/30/19 History 25 mcg allopurinoL [Zyloprim] 100 mg PO DAILY 03/04/19 03/31/19 03/30/19 History 100 mg sevelamer HCL [Renagel] 800 mg PO AC 03/04/19 03/31/19 03/30/19 History 800 mg ED Review of Systems ROS: Stated complaint: CHF,PULMONARY EDEMA Other details as noted in HPI Comment: All other systems reviewed and negative Constitutional: denies: chills, fever Eyes: denies: eye pain, vision change ENT: denies: ear pain, throat pain Respiratory: denies: cough, wheezing Cardiovascular: edema. denies: chest pain, palpitations Gastrointestinal: denies: abdominal pain, vomiting Genitourinary: denies: dysuria, discharge Musculoskeletal: myalgia. denies: back pain Skin: denies: rash, lesions Neurological: denies: headache, weakness Physical Exam - Physical Exam Vital Signs: Vital Signs 01/31/20 01/31/20 00:07 03:09 Temperature 97.7 F 97.8 F Pulse Rate 106 H 91 H Respiratory 20 18 Rate Blood Pressure 189/95 Blood Pressure 172/79 [Right] O2 Sat by Pulse 100 97 Oximetry Physical Exam: GENERAL: The patient is well-developed well-nourished. HENT: Normocephalic. Atraumatic. Patient has moist mucous membranes. EYES: Extraocular motions are intact. NECK: Supple. Trachea is midline. CHEST/LUNGS: Clear to auscultation. There is no respiratory distress noted. HEART/CARDIOVASCULAR: Regular. There is no tachycardia. ABDOMEN: Abdomen is soft, nontender. Patient has normal bowel sounds. SKIN: There is 1-2+ pitting edema to the bilateral feet and distal lower extremities. No erythema, rash, lesions, fluctuance. NEURO: The patient is awake, alert, and oriented. The patient is cooperative. The patient has no focal neurologic deficits. Normal speech. MUSCULOSKELETAL: There is no tenderness or deformity. There is no evidence of acute injury. ED Course Vital Signs 01/31/20 01/31/20 00:07 03:09 Temperature 97.7 F 97.8 F Pulse Rate 106 H 91 H Respiratory 20 18 Rate Blood Pressure 189/95 Blood Pressure 172/79 [Right] O2 Sat by Pulse 100 97 Oximetry ED Medical Decision Making - Lab Data Result diagrams: 01/31/20 00:37 01/31/20 00:37 - Radiology Data Radiology results: report reviewed CHEST 1 VIEW 01/31/2020 2:22 AM INDICATION / CLINICAL INFORMATION: cough. COMPARISON: 03/31/2019 FINDINGS: SUPPORT DEVICES: None. HEART / MEDIASTINUM: Remains enlarged for AP technique. 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 The left lung is clear.. No pneumothorax. ADDITIONAL FINDINGS: IMPRESSION: 1. Right lower lobe pleural-based soft tissue mass previously diagnostic for pleural lipoma on prior chest CT, unchanged - Medical Decision Making This patient presents with a complaint of a 1 to 2-week history of swelling to the bilateral feet and distal lower extremities. She does appear to have some pitting edema to these areas, but no rash, erythema, lesions, fluctuance. Patient's labs were unremarkable except for the renal insufficiency consistent with her end-stage renal disease on hemodialysis. No hyperkalemia. A chest x- ray was obtained to evaluate for hypervolemia but she does not appear volume overloaded as she just completed her dialysis session today. With the swelling, as well as the calf pain, the patient needs a venous Doppler ultrasound to rule out DVTs. However I am unable to obtain that at this time. The patient has been set up for this to be done in the morning. If positive, she will be redirected to the emergency department. If negative, she will follow-up with her primary care physician and systems checkout mechanic as previously scheduled. Critical Care Time: No Critical care attestation.: If time is entered above; I have spent that time in minutes in the direct care of this critically ill patient, excluding procedure time. ED Disposition Clinical Impression: ESRD (end stage renal disease), Bilateral lower extremity edema HTN (hypertension) Qualifiers: Hypertension type: essential hypertension Qualified Code(s): I10 - Essential (primary) hypertension Disposition: DC-01 TO HOME OR SELFCARE Is pt being admited?: No Condition: Stable Instructions: Leg Edema (ED), Hypertension (ED), End-Stage Kidney Disease (ED) Additional Instructions: Please follow-up with a primary care physician in the next few days. Continue with your normal dialysis schedule. I am getting you set up for an outpatient lower extremity venous Doppler ultrasound to rule out blood clots. If positive, you will be redirected to the emergency department. Return to the emergency department with any worsening of your symptoms or any acute distress. Referrals: PCP, Your [Other] - 2-3 Days Time of Disposition: 03:45
--- NOTE | 2020-01-31 03:37 | XRay Report ---
CHEST 1 VIEW 01/31/2020 2:22 AM INDICATION / CLINICAL INFORMATION: cough. COMPARISON: 03/31/2019 FINDINGS: SUPPORT DEVICES: None. HEART / MEDIASTINUM: Remains enlarged for AP technique. 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 The left lung is clear.. No pneumothorax. ADDITIONAL FINDINGS: IMPRESSION: 1. Right lower lobe pleural-based soft tissue mass previously diagnostic for pleural lipoma on prior chest CT, unchanged Signer Name: Chaparro Pearce MD Signed: 01/31/2020 3:33 AM Workstation Name: [id number]
[2020-01-31 04:39] VITALS: BP 155/66
== END 2020-01-31 04:35 | disposition home or self-care (01) ==
LOC: ED 00:01
DX: I13.2 Hypertensive heart and chronic kidney disease with heart failure and with stage 5 chronic kidney disease, or end stage renal disease (principal); E11.22 Type 2 diabetes mellitus with diabetic chronic kidney disease; N18.6 End stage renal disease; K21.9 Gastro-esophageal reflux disease without esophagitis; M19.90 Unspecified osteoarthritis, unspecified site; F17.200 Nicotine dependence, unspecified, uncomplicated; Z98.890 Other specified postprocedural states; Z79.899 Other long term (current) drug therapy
CPT/HCPCS: 36415; 71045; 80048; 80076; 83880; 85025

== ENCOUNTER 2020-05-14 15:42 | Observation (INO) | payer MEDICARE ==
[2020-05-14] MEDS ORDERED: MORPHINE 2 MG/1 ML INJ IV ONE ×2 (17:23→23:14)
--- NOTE | 2020-05-14 17:25 | Emergency Department Report ---
ED Extremity Problem HPI - General Chief complaint: Extremity Problem,Nontraumatic Stated complaint: CRAMPS Time Seen by Provider: 05/14/20 17:13 Source: patient, EMS Mode of arrival: Stretcher Limitations: No Limitations - History of Present Illness Initial comments: 74-year-old female with history of ESRD presents to ED with left hand pain, onset while at dialysis. Patient states around 1230 or 1:00 this afternoon she began to experience cramping in her left hand. Patient states she cannot stand the pain any longer, so they called an ambulance dialysis so that she could be transported here to the ED. Patient states the pain in her left hand is worse. She does report some numbness and cold sensation in her left hand. Patient reports she was on the dialysis machine for approximately 2-1/2 hours. Patient states she missed an appointment with her vascular doctor yesterday, due to transportation issues. Patient states they "wanted to check it out", but she is unsure why. I asked patient if she has been having difficulty with her AV graft or difficulty with dialysis she states no. Patient, nor her daughter Mayela, knows the name of her vascular surgeon or machine former. MD Complaint: extremity pain -: hour(s) (5) Location: left, other (hand) History of Same: No -: Yes myalgia Radiation: none Severity scale (0 -10): 10 Quality: other (Cramping) Consistency: constant Improves with: nothing Worsens with: nothing - Related Data Home Medications Medication Instructions Recorded Confirmed Last Taken Omeprazole 40 mg PO DAILY 03/08/18 05/14/20 03/30/19 40 mg amLODIPine 10 mg PO DAILY 03/08/18 05/14/20 03/30/19 10 mg hydrALAZINE [Apresoline TAB] 100 mg PO TID 03/08/18 05/14/20 03/30/19 100 mg sevelamer HCL [Renagel] 800 mg PO TID 03/04/19 05/14/20 03/30/19 800 mg Allergies Allergy/AdvReac Type Severity Reaction Status Date / Time No Known Allergies Allergy Verified 03/08/18 12:44 ED Review of Systems ROS: Stated complaint: CRAMPS Other details as noted in HPI Comment: All other systems reviewed and negative Constitutional: denies: fever Musculoskeletal: as per HPI Neurological: numbness ED Past Medical Hx - Past Medical History Previous Medical History?: Yes Hx Hypertension: Yes (X 20 YRS H/o CHF) Hx Congestive Heart Failure: Yes (6 MONTHS AGO - RESOLVED) Hx GERD: Yes Hx Renal Disease: Yes Hx Arthritis: Yes Hx Seizures: No Hx Asthma: No Hx COPD: No Hx HIV: No Additional medical history: Gout - Surgical History Hx Breast Surgery: Yes (1985 removed benign lump) - Social History Smoking Status: Never Smoker Substance Use Type: None - Medications Home Medications: Home Medications Medication Instructions Recorded Confirmed Last Taken Type Omeprazole 40 mg PO DAILY 03/08/18 05/14/20 03/30/19 History 40 mg amLODIPine 10 mg PO DAILY 03/08/18 05/14/20 03/30/19 History 10 mg hydrALAZINE [Apresoline TAB] 100 mg PO TID 03/08/18 05/14/20 03/30/19 History 100 mg sevelamer HCL [Renagel] 800 mg PO TID 03/04/19 05/14/20 03/30/19 History 800 mg ED Physical Exam - General Limitations: No Limitations General appearance: alert, in no apparent distress - Head Head exam: Present: atraumatic, normocephalic - Eye Eye exam: Present: normal appearance, EOMI - ENT ENT exam: Present: mucous membranes moist - Neck Neck exam: Present: normal inspection - Respiratory Respiratory exam: Present: normal lung sounds bilaterally. Absent: respiratory distress - Cardiovascular Cardiovascular Exam: Present: regular rate, normal rhythm - GI/Abdominal GI/Abdominal exam: Present: soft. Absent: distended, tenderness - Extremities Exam Extremities exam: Present: other (fingers of left hand appear dusky, slightly cooler compared to right hand, no palpable radial pulse, no thrill palpated in graft of left arm, numbess to fingers present, pt able to flex and extend fingers and make a fist w/ left hand). Absent: normal capillary refill - Neurological Exam Neurological exam: Present: alert, oriented X3. Absent: motor sensory deficit (able to moves fingers of left hand; pt reports numbness of the hand but on exam her sensation is intact) - Psychiatric Psychiatric exam: Present: normal affect, normal mood - Skin Skin exam: Present: cyanosis (left fingers) ED Course Vital Signs 05/14/20 05/14/20 05/14/20 17:06 17:13 17:16 Temperature Pulse Rate 86 Respiratory 18 18 Rate Blood Pressure Blood Pressure 191/89 [Right] O2 Sat by Pulse 100 98 98 Oximetry 05/14/20 05/14/20 05/14/20 17:21 17:25 17:31 Temperature 97.6 F Pulse Rate Respiratory Rate Blood Pressure Blood Pressure [Right] O2 Sat by Pulse 100 100 Oximetry 05/14/20 05/14/20 05/14/20 17:45 18:01 19:31 Temperature Pulse Rate 86 82 78 Respiratory 15 15 14 Rate Blood Pressure 181/93 176/81 169/86 Blood Pressure [Right] O2 Sat by Pulse 99 100 100 Oximetry 05/14/20 05/14/20 05/14/20 19:45 20:01 23:01 Temperature 98.3 F Pulse Rate 77 85 84 Respiratory 18 20 13 Rate Blood Pressure 169/86 161/87 Blood Pressure 169/91 [Right] O2 Sat by Pulse 100 100 Oximetry 05/14/20 05/14/20 05/15/20 23:31 23:34 00:00 Temperature Pulse Rate 85 83 Respiratory 13 18 12 Rate Blood Pressure 140/78 127/68 Blood Pressure [Right] O2 Sat by Pulse Oximetry - Reevaluation(s) Reevaluation #1: 05/14/20 17:45 manufacturing engineering technologist states the person who does vascular ultrasounds is gone for the day. Charge nurse, Lanie, notified Kellen, linen room houseperson. States she will call the US patient registration manager. 05/14/20 18:27 concrete block plant supervisor informed that [employer] was coming on shift at 6pm. [employer], however, is unable to perform vascular ultrasounds. Will page Dr Escobar to inform. 05/14/20 22:51 Multiple attempts made in the last few hours at obtaining IV access for CTA. Nurses made multiple attempts at peripheral IVs. I attempted US-guided bilateral femoral central lines. Both unsuccessful. US-guided peripheral line was finally placed which flushed well w/ saline. However, when contrast was injected the line infiltrated. Dr Escobar notified. - Consultations Consultation #1: 05/14/20 17:24 Vascular paged. 05/14/20 17:36 Dr Escobar returned call. Aware of patient. Wants call back after US results. 05/14/20 18:54 Dr Escobar aware unable to obtain US. Will order CT. 05/14/20 22:56 Unable to obtain IV access for CTA. Dr Escobar made aware. States admit to hospitalist and will see in the AM. States he does not believe that it is an acutely ischemic limb. States these findings are common in dialysis pts w/ AV grafts/ fistulas. He states since pt has motor and sensation, likely not an acutely ischemic limb. Agrees w/ heparin drip. ED Medical Decision Making - Lab Data Result diagrams: 05/14/20 18:07 05/14/20 18:07 - Medical Decision Making 74-year-old female presents to ED with left hand pain, onset around 12:30 or 1:00 this afternoon while at dialysis. Patient presented to ED after finishing her dialysis. On exam fingers of the left hand are cool, slightly cyanotic and dusky appearing. Patient has AV graft for dialysis on the same side. No palpable thrill detected. Due to concern for acute ischemic limb ultrasound was ordered and vascular surgeon on-call, Dr Escobar, was immediately paged. We were unable to obtain a vascular ultrasound on patient's on due to not having a nuclear technician available. CT angio of the left upper extremity was ordered instead. There was a major delay due to inability to obtain appropriate IV access for the CTA. I had sent to bilateral femoral central lines, but was unsuccessful. An IV was eventually placed in the right arm under ultrasound guidance, however, it infiltrated during injection. Warm compresses were applied. I again spoke with Dr. Escobar to inform that we were unable to get any imaging of patient's arm. He believes patient does not have an acutely ischemic limb and states that he will see the patient in the morning. I have placed patient on a heparin drip. She will be admitted to hospitalist, Dr Velez, for further management. - Differential Diagnosis ischemic limb, dialysis graft occlusion, PVD Critical Care Time: Yes Critical care time in (mins) excluding proc time.: 35 Critical care attestation.: If time is entered above; I have spent that time in minutes in the direct care of this critically ill patient, excluding procedure time. Critical Care Time: 35 min ED Disposition Clinical Impression: ESRD (end stage renal disease), Vascular graft occlusion, Ischemia of hand Disposition: 09 OP ADMIT IP TO THIS HOSP Is pt being admited?: Yes Condition: Stable Time of Disposition: 23:11
[2020-05-14 18:40] LABS: Hematocrit 38.1 % (30.3-42.9); Hemoglobin 12.1 gm/dl (10.1-14.3); Mean Corpuscular HGB Conc 32 % (30-34); Mean Corpuscular Volume 93 fl (79-97); Platelet Count 163 K/mm3 (140-440); Red Blood Count 4.12 M/mm3 (3.65-5.03); Red Cell Distribution Width 17.6 % (13.2-15.2)
[2020-05-14 18:47] LABS: INR 1.01 (0.87-1.13)
[2020-05-14 18:48] LABS: Partial Thromboplastin Time 28.6 Sec. (24.2-36.6)
[2020-05-14 18:53] LABS: Calcium 10.4 mg/dL (8.4-10.2)
[2020-05-14 20:38] LABS: Anisocytosis Few; Basophils % (Manual) 0 % (0.0-1.8); Eosinophils % (Manual) 0 % (0.0-4.3); Schistocytes Few; Total Cells Counted 100
[2020-05-14 20:39] LABS: Hypochromasia Few
[2020-05-14] MEDS ORDERED: HEPARIN 10,000 UNITS/10 ML VIAL IV ONE (21:54)
[2020-05-14] MEDS ORDERED: HEPARIN/ 0.45% NACL DRIP 25,000 UNIT/500 ML BAG IV SCH (22:00)
[2020-05-15] MEDS ORDERED: ONDANSETRON 4 MG/2 ML INJ IV PRN (00:52)
[2020-05-15] MEDS ORDERED: ACETAMINOPHEN 325 MG TAB PO PRN (00:52)
[2020-05-15] MEDS ORDERED: MAGNESIUM HYDROXIDE (MOM) ORAL LIQD UDC PO PRN (00:52)
--- NOTE | 2020-05-15 01:00 | History and Physical Report ---
History of Present Illness Date of examination: 05/15/20 Date of admission: 05/15/20 Chief complaint: Left hand pain History of present illness: 74-year-old female with known history of end-stage renal disease on dialysis, hypertension and history of CHF presenting to the emergency room today complaining of cramping and left hand pain. Left hand pain was said to have started sometime this afternoon. She has also complained of numbness and cold sensation on the left hand. She was on dialysis earlier in the day when symptoms started. Patient indicates that she missed an appointment to see a vascular surgeon sometime yesterday secondary to transportation issues. Attempts were made to do CT angiogram of the left upper extremity without success today. Evaluation in the emergency room is suspicious for vascular occlusion. Vascular surgeon Dr. Escobar was consulted by the ER physician and recommendation was to place patient on anticoagulation. Past History Past Medical History: dialysis, ESRD, GERD, heart failure, other (Gout,) Past Surgical History: Other (Breast Lumpectomy in 1984) Social history: no significant social history Family history: no significant family history Medications and Allergies Allergies Allergy/AdvReac Type Severity Reaction Status Date / Time No Known Allergies Allergy Verified 03/08/18 12:44 Home Medications Medication Instructions Recorded Confirmed Last Taken Type Omeprazole 40 mg PO DAILY 03/08/18 05/14/20 03/30/19 History 40 mg amLODIPine 10 mg PO DAILY 03/08/18 05/14/20 03/30/19 History 10 mg hydrALAZINE [Apresoline TAB] 100 mg PO TID 03/08/18 05/14/20 03/30/19 History 100 mg sevelamer HCL [Renagel] 800 mg PO TID 03/04/19 05/14/20 03/30/19 History 800 mg Active Meds: Active Medications Heparin Sodium/Sodium Chloride (Heparin/ 0.45% Nacl-25,000 Unit/500 Ml) 25,000 unit in 500 mls @ 27 mls/hr IV TITR LORRIE; Protocol Last Admin: 05/14/20 23:39 Dose: 1,350 units/hr, 27 mls/hr Documented by: Review of Systems Constitutional: no fever, no chills Ears, nose, mouth and throat: no nasal congestion, no sore throat Cardiovascular: no chest pain, no palpitations Respiratory: no cough, no shortness of breath Gastrointestinal: no abdominal pain, no nausea, no vomiting, no diarrhea Genitourinary Female: no pelvic pain, no flank pain, no hematuria Musculoskeletal: no neck pain, no low back pain Integumentary: no rash, no pruritis Neurological: burning pain (Left Hand), no headaches, no confusion Psychiatric: no anxiety, no depression Exam - Constitutional Vitals: Temp Pulse Resp BP Pulse Ox 98.3 F 80 13 130/74 100 05/14/20 19:45 05/15/20 00:30 05/15/20 00:30 05/15/20 00:30 05/14/20 20:01 General appearance: Present: no acute distress, well-nourished - EENT Eyes: Present: PERRL, EOM intact. Absent: scleral icterus ENT: hearing intact, clear oral mucosa, dentition normal - Neck Neck: Present: supple, normal ROM - Respiratory Respiratory effort: normal Respiratory: bilateral: CTA - Cardiovascular Rhythm: regular Heart Sounds: Present: S1 & S2. Absent: gallop, systolic murmur, diastolic murmur, rub - Extremities Extremities: no ischemia, No edema, Full ROM Extremity abnormal: cold (left hand), pulses diminished (Left wrist) Peripheral Pulses: within normal limits - Abdominal General gastrointestinal: Present: soft, non-tender, non-distended, normal bowel sounds. Absent: mass - Integumentary Integumentary: Present: clear, warm, dry - Musculoskeletal Musculoskeletal: strength equal bilaterally - Psychiatric Psychiatric: appropriate mood/affect, intact judgment & insight, memory intact, cooperative - Neurologic Neurologic: CNII-XII intact, no focal deficits, moves all extremities Results - Labs CBC & Chem 7: 05/14/20 18:07 05/14/20 18:07 Labs: Abnormal lab results 05/14/20 05/14/20 Range/Units 18:07 18:07 RDW 17.6 H (13.2-15.2) % Seg Neuts % (Manual) 84.0 H (40.0-70.0) % Lymphocytes % (Manual) 10.0 L (13.4-35.0) % Lymphocytes # (Manual) 0.6 L (1.2-5.4) K/mm3 Sodium 132 L (137-145) mmol/L Potassium 5.1 H (3.6-5.0) mmol/L Chloride 90.8 L (98-107) mmol/L BUN 51 H (7-17) mg/dL Creatinine 6.9 H (0.6-1.2) mg/dL Calcium 10.4 H (8.4-10.2) mg/dL Assessment and Plan - Patient Problems (1) Ischemia of hand Current Visit: Yes Status: Acute Plan to address problem: Possibly secondary to vascular occlusion. Patient currently on anticoagulation. Vascular surgeon Dr. Brown has been consulted by the ER physician. (2) ESRD (end stage renal disease) Current Visit: Yes Status: Acute Plan to address problem: Patient is on dialysis. Will place consult to nephrology for evaluation. (3) GERD (gastroesophageal reflux disease) Current Visit: No Status: Chronic Qualifiers: Esophagitis presence: without esophagitis Qualified Code(s): K21.9 - Gastro-esophageal reflux disease without esophagitis Plan to address problem: We will continue patient on her routine home medication. (4) HTN (hypertension) Current Visit: No Status: Chronic Qualifiers: Hypertension type: essential hypertension Qualified Code(s): I10 - Essential (primary) hypertension Plan to address problem: Will monitor vital signs and resume routine home medications . (5) DVT prophylaxis Current Visit: No Status: Acute Plan to address problem: Patient currently on anticoagulation. (6) Full code status Current Visit: Yes Status: Acute
--- NOTE | 2020-05-15 07:45 | Progress Note ---
Assessment and Plan Assessment and plan: -- Ischemia of Lt.hand Current Visit: Yes Status: Acute Plan to address problem: Ischemic changes of the left hand for the last few weeks Patient was scheduled to see vascular, did not go due to transportation problems Patient is started on heparin drip, vascular consulted Left upper extremity arterial Doppler requested Vascular surgeon Dr. Escobar consulted by the ER physician. N.p.o. status for possible procedure -- ESRD (end stage renal disease) on hemodialysis Current Visit: Yes Status: Acute Plan to address problem: Nephrology consulted , HD per schedule Avoid nephrotoxins -- GERD (gastroesophageal reflux disease) Current Visit: No Status: Chronic We will continue patient on her routine home medication. --HTN (hypertension) Current Visit: No Status: Chronic Plan to address problem: Will monitor vital signs and resume routine home medications . -- DVT prophylaxis Current Visit: No Status: Acute Plan to address problem: Patient currently on anticoagulation. -- Full code status Current Visit: Yes Status: Acute We will closely monitor the patient and adjust the management as needed Patient's condition and treatment plan reviewed with the patient and her nurse History Interval history: I have seen and examined the patient at the bedside this morning Patient's chart and medications reviewed Patient was admitted with ischemia of the left upper arm Vascular was consulted by the ED Patient is on heparin drip Complains of some pain Vital signs noted Hospitalist Physical - Constitutional Vitals: Temp Pulse Resp BP Pulse Ox 98.0 F 82 20 103/55 77 L 05/15/20 04:07 05/15/20 04:07 05/15/20 04:07 05/15/20 04:07 05/15/20 04:07 General appearance: Present: no acute distress, well-nourished - EENT Eyes: Present: PERRL, EOM intact - Neck Neck: Present: supple, normal ROM - Respiratory Respiratory effort: normal Respiratory: bilateral: diminished, rales, negative: rhonchi, wheezing - Cardiovascular Rhythm: regular Heart Sounds: Present: S1 & S2 - Extremities Extremities: no ischemia, abnormal (Left hand cold and clammy cyanosed) Extremity abnormal: edema - Abdominal General gastrointestinal: soft, non-tender, non-distended, normal bowel sounds - Integumentary Integumentary: Present: clear, warm - Psychiatric Psychiatric: appropriate mood/affect, cooperative - Neurologic Neurologic: moves all extremities Results - Labs CBC & Chem 7: 05/14/20 18:07 05/14/20 18:07 Labs: Laboratory Last Values WBC 6.0 K/mm3 (4.5-11.0) 05/14/20 18:07 RBC 4.12 M/mm3 (3.65-5.03) 05/14/20 18:07 Hgb 12.1 gm/dl (10.1-14.3) 05/14/20 18:07 Hct 38.1 % (30.3-42.9) 05/14/20 18:07 MCV 93 fl (79-97) 05/14/20 18:07 MCH 30 pg (28-32) 05/14/20 18:07 MCHC 32 % (30-34) 05/14/20 18:07 RDW 17.6 % (13.2-15.2) H 05/14/20 18:07 Plt Count 163 K/mm3 (140-440) 05/14/20 18:07 Add Manual Diff Complete 05/14/20 18:07 Total Counted 100 05/14/20 18:07 Seg Neuts % (Manual) 84.0 % (40.0-70.0) H 05/14/20 18:07 Band Neutrophils % 0 % 05/14/20 18:07 Lymphocytes % (Manual) 10.0 % (13.4-35.0) L 05/14/20 18:07 Reactive Lymphs % (Man) 0 % 05/14/20 18:07 Monocytes % (Manual) 6.0 % (0.0-7.3) 05/14/20 18:07 Eosinophils % (Manual) 0 % (0.0-4.3) 05/14/20 18:07 Basophils % (Manual) 0 % (0.0-1.8) 05/14/20 18:07 Metamyelocytes % 0 % 05/14/20 18:07 Myelocytes % 0 % 05/14/20 18:07 Promyelocytes % 0 % 05/14/20 18:07 Blast Cells % 0 % 05/14/20 18:07 Nucleated RBC % Not Reportable 05/14/20 18:07 Seg Neutrophils # Man 5.0 K/mm3 (1.8-7.7) 05/14/20 18:07 Band Neutrophils # 0.0 K/mm3 05/14/20 18:07 Lymphocytes # (Manual) 0.6 K/mm3 (1.2-5.4) L 05/14/20 18:07 Abs React Lymphs (Man) 0.0 K/mm3 05/14/20 18:07 Monocytes # (Manual) 0.4 K/mm3 (0.0-0.8) 05/14/20 18:07 Eosinophils # (Manual) 0.0 K/mm3 (0.0-0.4) 05/14/20 18:07 Basophils # (Manual) 0.0 K/mm3 (0.0-0.1) 05/14/20 18:07 Metamyelocytes # 0.0 K/mm3 05/14/20 18:07 Myelocytes # 0.0 K/mm3 05/14/20 18:07 Promyelocytes # 0.0 K/mm3 05/14/20 18:07 Blast Cells # 0.0 K/mm3 05/14/20 18:07 WBC Morphology Not Reportable 05/14/20 18:07 Hypersegmented Neuts Not Reportable 05/14/20 18:07 Hyposegmented Neuts Not Reportable 05/14/20 18:07 Hypogranular Neuts Not Reportable 05/14/20 18:07 Smudge Cells Not Reportable 05/14/20 18:07 Toxic Granulation Not Reportable 05/14/20 18:07 Toxic Vacuolation Not Reportable 05/14/20 18:07 Dohle Bodies Not Reportable 05/14/20 18:07 Pelger-Huet Anomaly Not Reportable 05/14/20 18:07 Enrico Rods Not Reportable 05/14/20 18:07 Platelet Estimate Not Reportable 05/14/20 18:07 Clumped Platelets Not Reportable 05/14/20 18:07 Plt Clumps, EDTA Not Reportable 05/14/20 18:07 Large Platelets Not Reportable 05/14/20 18:07 Giant Platelets Not Reportable 05/14/20 18:07 Platelet Satelliting Not Reportable 05/14/20 18:07 Plt Morphology Comment Not Reportable 05/14/20 18:07 RBC Morphology Not Reportable 05/14/20 18:07 Dimorphic RBCs Not Reportable 05/14/20 18:07 Polychromasia Not Reportable 05/14/20 18:07 Hypochromasia Few 05/14/20 18:07 Poikilocytosis Not Reportable 05/14/20 18:07 Anisocytosis Few 05/14/20 18:07 Microcytosis Few 05/14/20 18:07 Macrocytosis Not Reportable 05/14/20 18:07 Spherocytes Not Reportable 05/14/20 18:07 Pappenheimer Bodies Not Reportable 05/14/20 18:07 Sickle Cells Not Reportable 05/14/20 18:07 Target Cells Not Reportable 05/14/20 18:07 Tear Drop Cells Not Reportable 05/14/20 18:07 Ovalocytes Not Reportable 05/14/20 18:07 Helmet Cells Not Reportable 05/14/20 18:07 Doll-Rumsey Bodies Not Reportable 05/14/20 18:07 [place] Rings Not Reportable 05/14/20 18:07 Bryan Cells Not Reportable 05/14/20 18:07 Bite Cells Not Reportable 05/14/20 18:07 Crenated Cell Not Reportable 05/14/20 18:07 Elliptocytes Not Reportable 05/14/20 18:07 Acanthocytes (Spur) Not Reportable 05/14/20 18:07 Rouleaux Not Reportable 05/14/20 18:07 Hemoglobin C Crystals Not Reportable 05/14/20 18:07 Schistocytes Few 05/14/20 18:07 Malaria parasites Not Reportable 05/14/20 18:07 Clarence Bodies Not Reportable 05/14/20 18:07 Hem Pathologist Commnt No 05/14/20 18:07 PT 13.4 Sec. (12.2-14.9) 05/14/20 18:07 INR 1.01 (0.87-1.13) 05/14/20 18:07 APTT 28.6 Sec. (24.2-36.6) 05/14/20 18:07 Sodium 132 mmol/L (137-145) L 05/14/20 18:07 Potassium 5.1 mmol/L (3.6-5.0) H 05/14/20 18:07 Chloride 90.8 mmol/L (98-107) L 05/14/20 18:07 Carbon Dioxide 22 mmol/L (22-30) 05/14/20 18:07 Anion Gap 24 mmol/L 05/14/20 18:07 BUN 51 mg/dL (7-17) H 05/14/20 18:07 Creatinine 6.9 mg/dL (0.6-1.2) H 05/14/20 18:07 Estimated GFR 7 ml/min 05/14/20 18:07 BUN/Creatinine Ratio 7 % 05/14/20 18:07 Glucose 100 mg/dL (65-100) 05/14/20 18:07 Calcium 10.4 mg/dL (8.4-10.2) H 05/14/20 18:07 Richardson/IV: IV Catheter Type [Left Upper INT / Saline Lock arm] Active Medications - Current Medications Current Medications: Generic Name Dose Route Start Last Admin Trade Name Freq PRN Reason Stop Dose Admin Acetaminophen 650 mg 05/15/20 00:52 Tylenol PO Q4H PRN Pain MILD(1-3)/Fever >100.5/VILLALBA Amlodipine Besylate 10 mg 05/15/20 10:00 Amlodipine PO DAILY [facility] Hydralazine HCl 100 mg 05/15/20 08:00 Apresoline PO TID [facility] Heparin Sodium/Sodium Chloride 25,000 unit in 500 mls @ 27 mls/hr 05/14/20 22:00 05/14/20 23:39 Heparin/ 0.45% Nacl-25,000 Unit/500 Ml IV 1,350 units/hr TITR LORRIE 27 mls/hr Administration Protocol 1,350 UNITS/HR Magnesium Hydroxide 30 ml 05/15/20 00:52 Milk Of Magnesia PO Q4H PRN Constipation Morphine Sulfate 2 mg 05/15/20 00:52 Morphine IV Q4H PRN Pain, Moderate (4-6) Ondansetron HCl 4 mg 05/15/20 00:52 Zofran IV Q8H PRN Nausea And Vomiting Pantoprazole Sodium 40 mg 05/15/20 10:00 Protonix PO DAILY [facility] Sevelamer Carbonate 800 mg 05/15/20 07:30 Renvela PO AC LORRIE Sodium Chloride 10 ml 05/15/20 10:00 Sodium Chloride Flush Syringe 10 Ml IV BID LORRIE Sodium Chloride 10 ml 05/15/20 00:52 Sodium Chloride Flush Syringe 10 Ml IV PRN PRN LINE FLUSH
[2020-05-15] MEDS ORDERED: NON-FORMULARY EACH (Sevelamer Hcl [Renagel] 800 MG) PO SCH (08:00)
[2020-05-15] MEDS: hydrALAZINE 100 MG TAB PO SCH ×2 (08:38→13:59)
[2020-05-15] MEDS: SEVELAMER CARBONATE 800 MG TAB PO SCH ×3 (08:38→17:20)
[2020-05-15] MEDS: MORPHINE 2 MG/1 ML INJ IV PRN ×2 (09:57→14:00)
[2020-05-15] MEDS ORDERED: NON-FORMULARY EACH (Omeprazole [Omeprazole] 40 MG) PO SCH (10:00)
[2020-05-15] MEDS ORDERED: PANTOPRAZOLE 40 MG TAB PO SCH (10:00)
[2020-05-15] MEDS ORDERED: amLODIPine 10 MG TAB PO SCH (10:00)
--- NOTE | 2020-05-15 12:17 | Consultation ---
History of Present Illness - Reason for Consult Consult date: 05/15/20 Left Hand Numbness Requesting physician: RESHMA THIBODEAUX - History of Present Illness The patient is a 74 year old female with a history of ESRD who is on dialysis through a left arm AVG that was created in 2017. She was transported to the ED after complaining of left hand pain and numbness during her dialysis session. She states she had been on dialysis for approximately 2 1/2 hours when the pain became unbearable. She states she had been experiencing occasional pain and numbness in her left hand for approximately 3 weeks however her entire left arm began to hurt during dialysis yesterday. She also says she has been having issues with prolonged bleeding that requires them to old pressure on the graft for prolonged periods of time and she was supposed to be evaluated in our office this week however she did not have transportation. She has no additional complaints at this time. Past History Past Medical History: dialysis, ESRD, GERD, heart failure, other (Gout,) Past Surgical History: Other (Breast Lumpectomy in 1984, creation of left arm AVG) Social history: no significant social history Family history: no significant family history Medications and Allergies Allergies Allergy/AdvReac Type Severity Reaction Status Date / Time No Known Allergies Allergy Verified 03/08/18 12:44 Home Medications Medication Instructions Recorded Confirmed Last Taken Type Omeprazole 40 mg PO DAILY 03/08/18 05/14/20 03/30/19 History 40 mg amLODIPine 10 mg PO DAILY 03/08/18 05/14/20 03/30/19 History 10 mg hydrALAZINE [Apresoline TAB] 100 mg PO TID 03/08/18 05/14/20 03/30/19 History 100 mg sevelamer HCL [Renagel] 800 mg PO TID 03/04/19 05/14/20 03/30/19 History 800 mg Active Meds: Active Medications Acetaminophen (Tylenol) 650 mg PO Q4H PRN PRN Reason: Pain MILD(1-3)/Fever >100.5/VILLALBA Amlodipine Besylate (Amlodipine) 10 mg PO DAILY [facility] Last Admin: 05/15/20 11:10 Dose: Not Given Documented by: Hydralazine HCl (Apresoline) 100 mg PO TID [facility] Last Admin: 05/15/20 08:38 Dose: Not Given Documented by: Heparin Sodium/Sodium Chloride (Heparin/ 0.45% Nacl-25,000 Unit/500 Ml) 25,000 unit in 500 mls @ 27 mls/hr IV TITR [facility]; Protocol Last Admin: 05/14/20 23:39 Dose: 1,350 units/hr, 27 mls/hr Documented by: Magnesium Hydroxide (Milk Of Magnesia) 30 ml PO Q4H PRN PRN Reason: Constipation Morphine Sulfate (Morphine) 2 mg IV Q4H PRN PRN Reason: Pain, Moderate (4-6) Last Admin: 05/15/20 09:57 Dose: 2 mg Documented by: Ondansetron HCl (Zofran) 4 mg IV Q8H PRN PRN Reason: Nausea And Vomiting Pantoprazole Sodium (Protonix) 40 mg PO DAILY [facility] Last Admin: 05/15/20 11:11 Dose: Not Given Documented by: Sevelamer Carbonate (Renvela) 800 mg PO AC [facility] Last Admin: 05/15/20 08:38 Dose: Not Given Documented by: Sodium Chloride (Sodium Chloride Flush Syringe 10 Ml) 10 ml IV BID [facility] Sodium Chloride (Sodium Chloride Flush Syringe 10 Ml) 10 ml IV PRN PRN PRN Reason: LINE FLUSH Review of Systems All systems: negative Exam - Constitutional Vitals: Temp Pulse Resp BP Pulse Ox 97.6 F 79 20 150/76 100 05/15/20 08:40 05/15/20 08:40 05/15/20 08:40 05/15/20 08:40 05/15/20 08:40 General appearance: Present: no acute distress - Neck Neck: Present: supple - Respiratory Respiratory effort: normal - Cardiovascular Rhythm: regular - Extremities Extremities: pulses intact (palpable pedal pulses, left brachial pulse is palpable) Extremity abnormal: cyanosis (left fingers with cyanotic changes), pulses diminished (nonpalpable radial pulses bilaterally), other (no thrill or pulse in Left AVG) - Abdominal General gastrointestinal: Present: soft - Musculoskeletal Musculoskeletal: other (Left hand motor is intact) - Neurologic Neurologic: other (Left hand sensation is intact) Results - Labs CBC & Chem 7: 05/14/20 18:07 05/14/20 18:07 Labs: Abnormal lab results 05/14/20 05/14/20 05/15/20 Range/Units 18:07 18:07 07:59 RDW 17.6 H (13.2-15.2) % Seg Neuts % (Manual) 84.0 H (40.0-70.0) % Lymphocytes % (Manual) 10.0 L (13.4-35.0) % Lymphocytes # (Manual) 0.6 L (1.2-5.4) K/mm3 Heparin Anti-Xa Level > 2.00 H (0.3-0.7) U.I./ml Sodium 132 L (137-145) mmol/L Potassium 5.1 H (3.6-5.0) mmol/L Chloride 90.8 L (98-107) mmol/L BUN 51 H (7-17) mg/dL Creatinine 6.9 H (0.6-1.2) mg/dL Calcium 10.4 H (8.4-10.2) mg/dL Assessment and Plan The patient is a 74 year old female with a history of ESRD who presents with ischemic changes of her left hand that have been present for several weeks but worsened on dialysis yesterday. She also has a thrombosed left arm AVG. She is in need of a left arm Arteriogram with possible intervention, to improve flow to her left hand. If I am able to improve the flow to her hand I will also perform a percutaneous thrombectomy of the AVG. If I am unable to improve the flow to her hand, with an endovascular procedure, I will place a vascath or permacath for dialysis access and plan for open intervention of her left upper extremity.
[2020-05-15] MEDS ORDERED: SODIUM CHLORIDE 0.9% 100 ML IV PRN (12:20)
[2020-05-15] MEDS ORDERED: HEPARIN/NS 5000 UNIT/500ML 1,000 ML IR ONE ×2 (15:49→17:38)
[2020-05-15] MEDS ORDERED: SODIUM CHLORIDE 0.9% 500 ML 500 ML ONE (15:49)
[2020-05-15] MEDS: MIDAZOLAM 2 MG/2 ML INJ ONE ×5 (16:15→17:56)
[2020-05-15] MEDS: fentaNYL 100 MCG/2 ML INJ ONE ×3 (16:15→17:30)
[2020-05-15] MEDS: LIDOCAINE 1%/EPINEPHRINE 1:100,000 VIAL (20 ML) INFILTRATI ONE ×2 (16:16→17:41)
[2020-05-15] MEDS ORDERED: HEPARIN/NS 5000 UNIT/500ML 500 ML IR ONE (16:26)
[2020-05-15] MEDS ORDERED: ALTEPLASE 2 MG INJ ONE ×3 (16:30→17:29)
[2020-05-15] MEDS ORDERED: SODIUM CHLORIDE 0.9% 50 ML ONE (16:30)
[2020-05-15] MEDS ORDERED: WATER FOR INJ Sterile (PF) 20 ML ONE (16:31)
[2020-05-15] MEDS: HEPARIN 10,000 UNITS/10 ML VIAL ONE ×3 (16:47→18:05)
[2020-05-15 17:22] LABS: Hepatitis B Surface Antigen Non-Reactive (Negative); Hepatitis C Virus Antibody Non-Reactive (NonReactive)
[2020-05-15] MEDS ORDERED: fentaNYL 100 MCG/2 ML INJ ONE (17:33)
[2020-05-15] MEDS ORDERED: ATROPINE 0.1% (1 MG/10 ML) CARDIAC SYRINGE ONE (18:00)
[2020-05-15] MEDS ORDERED: SODIUM CHLORIDE 0.9% 1000 ML 1,000 ML ONE ×2 (18:06→20:40)
--- NOTE | 2020-05-15 19:47 | Operative Report ---
Operative Report Operative Report: Date of Procedure: 05/15/2020 Pre-operative Diagnosis: Complications of Dialysis Access with Left Upper Extre mity Ischemia Post-operative Diagnosis: Same Procedure(s): 1. Access Left Arm AV Graft with 6 Bah[place]ian Sheath Arterial 2. Access Left Arm AV Graft with 7 [place] Sheath Venous 3. Catheter in Left Subclavian Artery 4. Diagnostic Left Upper Extremity Arteriogram (No Previous Films for Comparison) 5. Percutaneous Pharmacomechanical Thrombectomy Of Left Brachial Artery with TPA, AngioJet Catheter, Iyya-[id number] Jose, And 6 [place]ian Multipurpose Catheter 6. Percutaneous Pharmacomechanical Thrombectomy Of Left Radial Artery With TPA and AngioJet Catheter 7. Percutaneous Pharmacomechanical Thrombectomy Of Left Ulnar artery With TPA and AngioJet Catheter 8. Percutaneous Pharmacomechanical Thrombectomy Of Left Interosseous artery With TPA and AngioJet Catheter 9. Angioplasty and Stent of Left Arm AV Graft with 8 x 100 [place] Balloon, 8 x 60 Covera Stent Graft, and 8 x 40 Conquest Balloon 10. Percutaneous Mechanical Thrombectomy Left Arm AV Graft with AngioJet Catheter and Trertolla Device 11. Radiologic Supervision with Interpretation 12. Monitored Moderate Sedation (Total Anesthesia Time: 162 Minutes) Surgeon: Herrera Escobar M.D. Telephone Surveyor: Aria Anesthesia: Monitored Moderate Sedation Total Anesthesia Time: 162 Minutes EBL: Minimal Counts: Correct Complications: None Condition: Stable Specimen: None Indication: The patient is a 74-year-old female with a history of end-stage renal disease who presented to the emergency department from her dialysis unit with complaints of left hand numbness that was present for several weeks. She was scheduled to be seen in our office for poor clearance on her dialysis access however she was unable to get a ride to the center. On physical exam she was found to have a thrombosed left arm arteriovenous access as well as ischemic changes to her left hand. She is in need of a diagnostic left upper extremity arteriogram with possible intervention to restore flow to her left hand. If that is successful the plan was to restore flow to the graft to allow for dialysis as well. She was given the risk, benefits, and alternative procedures and consented to the procedure. Angiographic Findings: The diagnostic left upper extremity arteriogram revealed the left subclavian artery was patent without evidence of thrombus or flow-limiting stenosis. The axillary artery was patent without evidence of thrombus or flow-limiting stenosis. The proximal brachial artery was patent without evidence of thrombus or flow-limiting stenosis however the flow was somewhat sluggish. There was thrombus in the brachial artery just proximal to the anastomosis of the arteriovenous graft. The thrombus extended into the mid brachial artery. There was reconstitution of flow in a short segment of the distal brachial artery. The ulnar and radial artery both have thrombus within them however neither artery had occlusive thrombus. The interosseous artery appeared to be completely occluded with thrombus. The diagnostic fistulogram revealed that the fistula was thrombosed. There was stenosis throughout the fistula, in the cannulation zone ranging from 50 to 85%. The axillary vein had a short segment complete occlusion with minimal collateral branches providing outflow to the graft. The central venous system was patent without evidence of flow-limiting stenosis. After intervention the arteriovenous graft was patent with less than 20% residual stenosis with out significant residual thrombus appreciated. The left upper extremity arteriogram revealed the brachial artery appeared to be free of significant residual thrombus. There was minimal residual thrombus in the interosseous artery. Both the radial artery and ulnar artery were patent with minimal residual thrombus. There was minimal residual thrombus within the palmar arch with filling of the digital branches and all fingers. Description of Procedure: The patient was brought to the [facility] and laid in supine position. After a timeout was performed the patient's left arm was prepped and draped in normal sterile fashion. Lidocaine was used to anesthetize the skin overlying the graft near the venous outflow and a 21-gauge micropuncture needle was used to access the graft towards the arterial inflow. A 0.018 micropuncture wire was advanced into the graft and after removing the needle a 6 Bahamian sheath was placed by Seldinger technique. A vertebral catheter and Bentson wire were used to cannulate the proximal brachial artery and the catheter and wire were advanced into the subclavian artery. A diagnostic left upper extremity arteriogram was performed with the previously described findings. After demonstrating the thrombus within the left upper extremity the vertebral catheter and a 0.035 floppy Glidewire were advanced into the distal ulnar artery and 4 mg of TPA were injected into the palmar arch to lyse thrombus within the hand. A 0.035 advantage wire was then advanced into the distal ulnar artery and an AngioJet catheter was used with a mixture of 10 mg of TPA and 50 mL of heparinized saline to lace the thrombus within the brachial artery and ulnar artery with the TPA solution. I allow this to dwell for approximately 20 minutes and then used the AngioJet catheter to aspirate the thrombus from the brachial artery and ulnar artery with a result of minimal residual thrombus. I then advanced the wire into the radial artery and was able to aspirate the thrombus. Distally I advanced the wire into the interosseous artery and was able to aspirate thrombus with minimal residual thrombus. I then advanced the advantage wire into the proximal brachial artery and was able to aspirate the thrombus in the proximal brachial artery. After performing the percutaneous mechanical thrombectomy of the proximal brachial artery some of the thrombus fell into the distal brachial artery require me to aspirate additional thrombus at the distal brachial artery. Some of the thrombus was clearly chronic and was unable to be aspirated through the AngioJet catheter so I had to use an [id number] Jose to pull the thrombus from the distal brachial artery back into the graft. This resulted in minimal residual thrombus in the distal brachial artery. After performing the thrombectomy of the left upper extremity I then used lidocaine to anesthetize the skin overlying the graft near the arterial inflow and access the graft t owards the venous outflow using a 21-gauge micropuncture needle. I advanced a 0.018 micropuncture wire into the graft and after removing the needle placed a 7 Bahamian sheath by Seldinger technique. I advanced the vertebral catheter and advantage wire into the venous outflow and attempted to advance it into the central venous system without success. I performed a gentle venography to evaluate the anatomy at which time it revealed that the axillary vein was completely occluded. I was able to advance a 0.018 V18 wire across the occluded axillary vein and into the central venous system which was confirmed by venogram. I advanced a Navicross catheter over the V 18 wire and exchanged the wire for the advantage wire and then used the AngioJet catheter to aspirate thrombus within the graft. I then used an 8 x 80 [place] balloon to perform angioplasty of the occluded axillary vein with a result of approximately 90% residual stenosis. I decided to place a stent graft across the area of stenosis so I remove the 7 Baham[place] sheath and advanced an 8 x 60 Covera Stent Graft across the stenosis and postdilated it with an 8 x 40 Conquest Balloon with a result of less than 10% residual stenosis. I then used a Trertolla Device to morcellate the remaining thrombus within the graft and was able to aspirate the thrombus using the AngioJet catheter. The result was minimal residual thrombus within the graft and less than 20% residual stenosis within the graft. I reinserted the vertebral catheter into the proximal brachial artery and performed an angiogram revealing that thrombus had fallen back into the brachial artery. I was able to retrieve the thrombus with a combination of a 6 Bahamian multipurpose catheter as well as using the 5 [place]amian vertebral catheter. Additionally I injected 6 additional milligrams of TPA into the hand to lyse any additional thrombus within the palmar arch. The final angiogram revealed that the radial, ulnar, and interosseous arteries were patent with minimal residual thrombus and brisk flow of contrast. Additionally interrogation of the artery hands revealed Doppler signals in both the radial and ulnar arteries as well as Doppler signals in the palmar arch. I then used a 2-0 Ethilon in slipknot fashion to close each entry site after removing the sheaths and sterile dressings were then applied to the entry site. The patient was transported from the [facility] to the [facility] in stable condition.
[2020-05-15] MEDS ORDERED: NALOXONE 0.4 MG/1 ML INJ IV ONE (20:38)
--- NOTE | 2020-05-15 21:06 | Event Note ---
Date: 05/15/20 Patient was off the floor for declot. Labs reviewed, electrolytes within acceptable range. Will see tomorrow. Please call if you have any questions. Yara Tavera MD
[2020-05-15 21:17] LABS: ABG Base Excess -19.9 mmol/L (-2.0-3.0); ABG HCO3 8.5 mmol/L (20.0-26.0); ABG Methemoglobin 0.3 % (0.0-1.5); ABG PCO2 29.9 mm Hg; ABG PO2 139.6 mm Hg (80.0-90.0)
[2020-05-15 21:23] LABS: ABG PH 7.071 pH Units (7.350-7.450)
[2020-05-15] MEDS ORDERED: SODIUM BICARB 8.4% 50 MEQ/50 ML SYRINGE IV ONE (21:33)
[2020-05-15] MEDS ORDERED: SODIUM BICARBONATE 150 MEQ in DEXTROSE 5% IN WATER 1,000 ML IV SCH (22:00)
--- NOTE | 2020-05-15 22:32 | Event Note ---
Date: 05/15/20 Arrived at bedside following Code Blue. Hospitalist at bedside running the code. I assisted in intubation of patient. Patient preoxygenated, being bagged by respiratory therapist. I then intubated patient w/ 7.5 ET tube, visualizing passage through the cords. There was condensation present in the ET tube and good color change on CO2 detector. Breath sounds present.
[2020-05-15] MEDS ORDERED: LIP THERAPY VASELINE TP PRN (22:38)
[2020-05-15] MEDS ORDERED: MINERAL OIL/PETROLATUM, WHITE OPHTH OINT 3.5 GM OU PRN (22:38)
--- NOTE | 2020-05-15 22:53 | XRay Report ---
CHEST 1 VIEW 05/15/2020 10:24 PM INDICATION / CLINICAL INFORMATION: ETT placement. COMPARISON: 01/31/20. CT dated 03/04/19 FINDINGS: SUPPORT DEVICES: Endotracheal tube has been placed with the tip at the level of the triston directed t oward the right mainstem bronchus. HEART / MEDIASTINUM: Heart is enlarged but stable. LUNGS / PLEURA: No acute airspace disease. 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 No pneumothorax. ADDITIONAL FINDINGS: No significant additional findings. IMPRESSION: 1. Endotracheal tube at the level of the triston directed toward the right mainstem bronchus. Tube antwon uld be pulled back about 2 cm for optimal positioning. Signer Name: Danielle Krishnamurthy MD Signed: 05/15/2020 10:49 PM Workstation Name: [id number]
[2020-05-15 23:20] LABS: Hematocrit 32.3 % (30.3-42.9); Hemoglobin 9.2 gm/dl (10.1-14.3)
[2020-05-15] MEDS ORDERED: NORepinephrine/NS 4 MG-250 ML 4 MG/250 ML BAG IV ONE (23:21)
[2020-05-15 23:36] LABS: Creatine Kinase MB 53.3 ng/mL (0.0-4.0)
[2020-05-15] MEDS ORDERED: DEXTROSE 50% IN WATER (25GM) 50 ML SYRINGE IV ONE ×2 (23:39→23:41)
[2020-05-15] MEDS ORDERED: NORepinephrine/NS 4 MG-250 ML 4 MG/250 ML BAG IV SCH (23:45)
[2020-05-16] MEDS ORDERED: PHENYLEPHRINE 100 MG in SODIUM CHLORIDE 0.9% 90 ML IV SCH (00:15)
--- NOTE | 2020-05-16 00:31 | Operative Report ---
Operative Report Operative Report: Date of Procedure: 05/16/2020 Pre-operative Diagnosis: Hyperkalemia with Need for Dialysis Access Post-operative Diagnosis: Same Procedure(s): 1. Access Left Arm AV Fistula with 18-Gauge Needle 2. Placement of 30 cm Trialysis Vascath Through Left Arm Arteriovenous Fistula and to Central Venous System Surgeon: Herrera Escobar M.D. Self Propelled Hot Mix Roller Operator: Aria Anesthesia: 2% Lidocaine EBL: None Counts: Correct Complications: None Condition: Critical Findings: Portable Chest X-Ray Pending Specimen: None Indication: The patient is a 74-year-old female with a history of end-stage renal disease who recently underwent left upper extremity thrombectomy as well as thrombectomy of her left arm AV fistula. Post procedure she has been hypotensive and has hyperkalemia and is in need of emergent dialysis however given her hypotension is likely that she has rethrombosed her left arm arteriovenous fistula. I am unable to femoral veins for placement of dialysis access catheter secondary to hematomas and ultrasound revealed that her right internal jugular vein appears to be occluded below the clavicle. I will place the Vas-Cath through her fistula and into the central venous system for emergent access. Description of Procedure: The procedure was performed in the intensive care unit at the patient's bedside. The skin overlying the fistula was prepped and draped in normal sterile fashion. Lidocaine was used to anesthetize the skin overlying the fistula and an 18-gauge needle was used to access the fistula. There was bright red blood from the fistula to suggest that it was patent however it did not appear as the flow was adequate to perform dialysis. I advanced a 0.038 J-wire through the fistula and after removing the needle serially dilated the tract. I then placed a 30 cm Tri-Alysis Vas-Cath by Seldinger technique. I removed the wire and then easily aspirated and flushed all ports. I then primed the ports with the appropriate amount of heparin. The catheter was secured in place with 3-0 nylon and then dressed with a sterile dressing. The patient tolerated the procedure well and remained in the intensive care unit in critical condition.
[2020-05-16] MEDS ORDERED: CALCIUM CHLORIDE 1,000 MG/10 ML SYRINGE IV ONE ×3 (00:46→01:59)
[2020-05-16] MEDS ORDERED: EPINEPHrine 1 MG/10 ML SYRINGE ONE (00:46)
[2020-05-16] MEDS ORDERED: DOPamine/D5W 800 MG/250 ML DRIP IV ONE (00:46)
[2020-05-16] MEDS ORDERED: ATROPINE 0.1% (1 MG/10 ML) CARDIAC SYRINGE ONE (00:46)
[2020-05-16] MEDS ORDERED: SODIUM BICARB 8.4% 50 MEQ/50 ML SYRINGE IV ONE (00:46)
[2020-05-16] MEDS ORDERED: DEXTROSE 50% IN WATER (25GM) 50 ML SYRINGE IV ONE (00:46)
[2020-05-16] MEDS ORDERED: VASOPRESSIN 20 UNIT in SODIUM CHLORIDE 0.9% 100 ML IV SCH (01:00)
[2020-05-16] MEDS ORDERED: DEXTROSE 10% IN WATER 1,000 ML IV SCH (01:00)
--- NOTE | 2020-05-16 01:10 | XRay Report ---
CHEST 1 VIEW 05/16/2020 12:45 AM INDICATION / CLINICAL INFORMATION: s/p Vas-Cath placement. COMPARISON: 05/15/20 10:24 PM FINDINGS: SUPPORT DEVICES: Endotracheal tube has been pulled back slightly just above the triston. Interval plac ement of left subclavian Vas-Cath with the tip projecting over the mid left subclavian vein. HEART / MEDIASTINUM: Enlarged but stable. LUNGS / PLEURA: No acute airspace disease. 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 No pneumo thorax. ADDITIONAL FINDINGS: No significant additional findings. IMPRESSION: 1. Left subclavian vascular catheter projecting over the mid left subclavian vein. Signer Name: Danielle Krishnamurthy MD Signed: 05/16/2020 1:05 AM Workstation Name: [id number]
[2020-05-16] MEDS ORDERED: SODIUM CHLORIDE 0.9% 500 ML 500 ML IV ONE (01:50)
[2020-05-16] MEDS ORDERED: ALBUTEROL 2.5 MG/3 ML NEBU IH ONE (01:53)
[2020-05-16] MEDS ORDERED: INSULIN REGULAR, HUMAN 100 UNIT/ML 3ML VIAL IV ONE (02:01)
--- NOTE | 2020-05-16 02:04 | Event Note ---
Date: 05/16/20 Code was initially called at 01:30. Called to the room by the nurse secondary to the patient having spontaneous breathing approximately 10 minutes after the code was called. Upon entering the room the patient had condensation in the tube and HR 85 with palpable DP pulse. Gave 2 amps of calcium chloride and started Dopamine. Updated the family that the patient has signs of life but still in critical condition with a guarded prognosis.
[2020-05-16 05:14] LABS: ABG HCO3 4.8 mmol/L (20.0-26.0); ABG Methemoglobin 0.8 % (0.0-1.5); ABG Oxygen Saturation 96.8 % (95.0-99.0); ABG PCO2 26.4 mm Hg; ABG PO2 142.2 mm Hg (80.0-90.0)
[2020-05-16 05:19] LABS: ABG PH 6.88 pH Units (7.350-7.450)
[2020-05-16] MEDS: hydrALAZINE 100 MG TAB PO SCH (05:44)
[2020-05-16 06:40] VITALS: BP 53/24
[2020-05-16 07:47] LABS: Calcium 10.9 mg/dL (8.4-10.2)
--- NOTE | 2020-05-16 08:37 | Event Note ---
Date: 05/15/20 CODE JOVITA WAS CALLED ON PATIENT INITIALLY AT 2147 ,ON ARRIVAL CPR WAS IN PROGRESS AND PATIENT SUBSEQUENTLY INTUBATED BY THE ER DOCTOR ON DUTY . PATIENT WAS SUBJECTED TO FULL ACLS PROTOCOL AND SUCCESSFULLY RESUSCITATED WITH PULSE AND BLOOD PRESSURE REGAINED AT ABOUT 2209. PATIENT WENT INTO A SECOND CARDIOPULMONARY ARREST AT ABOUT 2314 WITH CAR DIOPULMONARY RESUSCITATION FULLY APPLIED PER PROTOCOL AND PATIENT SUCCESSFULLY REGURGITATED AT ABOUT 2320. PATIENT WENT INTO A THIRD CARDIOPULMONARY ARREST AT ABOUT 0047 AND CPR WAS STOPPED BRIEFLY AFTER 44 MINUTES AND PATIENT'S PULSE AND RESPIRATION RETURNED ALL OF A SUDDEN AND FAMILY MEMBERS ( 2 DAUGHTERS) WERE BRIEFED. PATIENT WENT INTO A FOURTH CARDIOPULMONARY ARREST AT 0653 AND AFTER 30 MINUTES OF FULL ACLS PROTOCOL PATIENT WAS PRONOUNCED AT 7.34 AM ON 05/16/20 , FAMILY MEMBERS WERE FULLY BRIEFED.
--- NOTE | 2020-05-16 09:10 | Death Summary ---
Summary - Providers Date of service: 05/16/20 Consults: 05/14/20 22:50 Consult to Physician [CONS] Stat Comment: Consulting Provider: ALICIA HERNANDEZ Physician Instructions: Reason For Exam: possible arterial occlusion 05/15/20 06:55 Consult to Physician [CONS] Routine Comment: Consulting Provider: GIANFRANCO FEGRUSON Physician Instructions: Reason For Exam: ESRD ON DIALYSIS 05/15/20 22:39 Consult to Dietitian/Nutrition [CONS] Routine Physician Instructions: Reason For Exam: Reason for Consult: Evaluate nutritional intake Attending: ELVER JOSEPH - summary Date of admission: 05/14/20 23:50 Date of : 05/16/20 (at 07:34) - Final diagnosis (1) Acute respiratory failure with hypoxia Note: Final diagnosis: (2) Acute hyperkalemia Note: Final diagnosis: (3) Metabolic acidosis Note: Final diagnosis: (4) Bradycardia Note: Final diagnosis: (5) Complication of vascular access for dialysis Note: Final diagnosis: (6) Ischemia of left upper extremity Note: Final diagnosis: (7) Shock Note: Final diagnosis: (8) ESRD needing dialysis Note: Final diagnosis:
--- NOTE | 2020-05-16 21:31 | Event Note ---
Date: 05/16/20 Found out this morning that the patient had I was not notified of the series of events overnight. Yara Tavera MD
== END 2020-05-16 12:18 ==
LOC: ED 15:42 → 4A 23:50 → IMCU 05-15 19:48 → CC1 05-15 20:38
PROVIDERS: ADMIT Internal Medicine Geriatric Medicine; ATTEND Internal Medicine
DX: M62.242 Nontraumatic ischemic infarction of muscle, left hand (principal); I13.2 Hypertensive heart and chronic kidney disease with heart failure and with stage 5 chronic kidney disease, or end stage renal disease; I50.9 Heart failure, unspecified; N18.6 End stage renal disease; I70.228 Atherosclerosis of native arteries of extremities with rest pain, other extremity; I99.8 Other disorder of circulatory system; T82.898A Other specified complication of vascular prosthetic devices, implants and grafts, initial encounter; K21.9 Gastro-esophageal reflux disease without esophagitis; M10.9 Gout, unspecified; M19.90 Unspecified osteoarthritis, unspecified site; Z99.2 Dependence on renal dialysis; Z98.890 Other specified postprocedural states; Z79.899 Other long term (current) drug therapy
CPT/HCPCS: 36415; 36430; 36600; 36906; 37184; 37185; 71045; 75710; 80048; 80074; 82550; 82553; 82803; 82962; 83735; 85014; 85018; 85025; 85520; 85610; 85730; 86850; 86900; 86901; 86920; 92950; 93005; 94002; 94640; 96361; 96365; 96366; 96375; 96376; 99291; C1725; C1757; C1769; C1874; C1887; C1894; G0378; J0171; J0461; J1265; J1644; J2250; J2270; J2310; J2997; J3010; J7030; J7040; P9016; 85007; 94003; J1815; Q9967